=== PATIENT | male | born 1960 | race Caucasian/White ===

== ENCOUNTER 2020-05-02 02:32 | Outpatient (CLI) | payer OTHER, SELFPAY ==
[2020-05-02 22:42] LABS: SARS-CoV-2 RNA PCR Negative
== END 2020-05-02 02:33 | disposition home or self-care (01) ==
LOC: ANHCOVIDDT 02:32
PROVIDERS: PCP Internal Medicine; Visit Provider Internal Medicine Gastroenterology
DX: Z01.818 Encounter for other preprocedural examination (principal); Z20.828 Contact with and (suspected) exposure to other viral communicable diseases
CPT/HCPCS: 87635; C9803; U0003

== ENCOUNTER 2020-05-05 00:46 | Day surgery (SDC) | payer OTHER, SELFPAY ==
[2020-05-01 09:17] VITALS: BMI 37.6
[2020-05-05 10:21] VITALS: BP 170/107; PULSE 81; RESP 18; TEMP 36.5; O2SAT 93
[2020-05-05] MEDS: LACTATED RINGERS 1,000 ML 150 ML IV CONT (10:42)
--- NOTE | 2020-05-05 10:59 | WPDANESEPPF ---
Anes - Initial Pre Proc Eval Procedure: Operation Date: 05/05/20 12:15 Proposed Procedures p Screening Colonoscopy - Jim Man MD Date/Time: 05/05/20 10:59 Surgeon: Jim Man MD Pre Op Diagnosis: Neoplasm Screening Patient Data Age: 59 Gender: M Height: 5 ft 7 in Weight: 109 kg Last Vital Signs Temp 36.5 C 05/05/20 10:21 Pulse 81 05/05/20 10:21 Resp 18 05/05/20 10:21 BP 170/107 H 05/05/20 10:21 Pulse Ox 93 05/05/20 10:21 Allergies Allergy/AdvReac Type Severity Reaction Status Date / Time No Known Allergies Allergy Verified 03/30/20 14:31 Home Medications Medication Instructions Recorded Confirmed Type atenolol 50 mg PO DAILY 03/30/20 05/05/20 History hydrocodone-acetaminophen 1 tablet PO QID PRN 03/30/20 05/01/20 History pravastatin 10 mg PO DAILY 03/30/20 03/30/20 History celecoxib 100 mg PO BID 05/01/20 05/01/20 History cyclobenzaprine 10 mg PO BID PRN 05/01/20 05/01/20 History Patient hx anesthesia problems: none Family hx anesthesia problems: none PMFSH Past Medical History Medical History (Updated 05/05/20 @ 11:00 by Baljeet Duarte MD) History of hepatitis C HTN (hypertension) Hyperlipidemia Obesity IDALIA on CPAP Surgical History Surgical History (Updated 05/05/20 @ 11:00 by Baljeet Duarte MD) History of total hip arthroplasty Social History Social History Smoking status: Never smoker Smokeless tobacco user: chewing tobacco Alcohol intake: never Substance use: current Substance use type: marijuana Last use: 04/30/2020 Spiritual care concerns: No Anes - Eval Final PreProcedure Day of Procedure 05/05/20 10:59 Patient weight: obese Heart: regular rate and rhythm Lungs: clear to auscultation Airway: Mallampati scale class II Neurological: alert and oriented Last oral intake: >/= 8 hours ASA classification: III Emergent: no Anesthetic plan: proceed Anesthesia type and monitoring: general GIVS and standard monitoring Informed Consent: The patient's anesthetic plan and its attendant risks and benefits were discussed with the patient/family/POA. Questions were solicited and answers provided to the satisfaction of the patient/family/POA.
--- NOTE | 2020-05-05 11:41 | PM.HPGS ---
History of Present Illness History of Present Illness Consent: Risks, benefits, and alternatives have been discussed and questions answered. Patient agrees to proceed with procedure. Chief complaint: Neoplasm Screening Narrative: Nikita Perry Jr. is a 59 year old male here for first screening colonoscopy Review of Systems Constitutional: Constitutional: Denies headache(s) and Denies weakness Eyes: Eyes: Denies blurry vision ENT: Reports Normal hearing present, Denies headache(s) and Denies neck pain Cardiovascular: Cardiovascular: Denies chest pain and Denies dyspnea Respiratory: Respiratory: Denies dyspnea Gastrointestinal: Gastrointestinal: Reports no additional gastrointestinal complaints Genitourinary: Genitourinary: Denies dysuria Musculoskeletal: Musculoskeletal: Denies neck pain Integumentary/Breasts: Skin/Breast: Denies dry skin Neurologic: Reports Normal hearing present, Denies headache(s) and Denies weakness Psychiatric: Psychiatric: Denies anxiety Endocrine: Endocrine: Denies change in body appearance Hematologic/Lymphatic: Hematologic/Lymphatic: Denies easy bleeding Allergic/Immunologic: Allergic/Immunologic: Denies urticaria PMF Past Medical History Medical History (Updated 05/05/20 @ 11:41 by Jim Man MD) Colon cancer screening History of hepatitis C HTN (hypertension) Hyperlipidemia Obesity IDALIA on CPAP Surgical History Surgical History (Updated 05/05/20 @ 11:00 by Baljeet Duarte MD) History of total hip arthroplasty Social History Social History Smoking status: Never smoker Smokeless tobacco user: chewing tobacco Alcohol intake: never Substance use: current Substance use type: marijuana Last use: 04/30/2020 Spiritual care concerns: No Meds Home Medications and Allergies Home Medications Medication Instructions Recorded Confirmed Type atenolol 50 mg PO DAILY 03/30/20 05/05/20 History hydrocodone-acetaminophen 1 tablet PO QID PRN 03/30/20 05/01/20 History pravastatin 10 mg PO DAILY 03/30/20 03/30/20 History celecoxib 100 mg PO BID 05/01/20 05/01/20 History cyclobenzaprine 10 mg PO BID PRN 05/01/20 05/01/20 History Allergies Allergy/AdvReac Type Severity Reaction Status Date / Time No Known Allergies Allergy Verified 03/30/20 14:31 Vital Signs Vital Signs - 24 hr 05/05/20 10:21 Temperature 97.7 F Pulse Rate 81 Respiratory Rate 18 Blood Pressure 170/107 H Pulse Oximetry 93 Exam Const: General: comfortable and no acute distress HENMT: General nose exam: Normal nares present Eyes: General: appearance normal, both eyes and all related structures Neck: Neck: no JVD Resp: Auscultation: clear to auscultation bilaterally Cardio: Rate: regular rate Rhythm: regular rhythm GI: Inspection: non-distended GI Palp: Yes Soft to palpation Skin: General skin exam: normal color Neuro: General: gait normal Speech: normal speech Extrem: General: normal to inspection Psych: Mental Status: mental status grossly normal Assessment and Plan Assessment and plan (1) Colon cancer screening: Code(s): Z12.11 - Encounter for screening for malignant neoplasm of colon Status: Acute Assessment and Plan: will proceed with colonoscopy
[2020-05-05 12:02] VITALS: BP 116/77; PULSE 80; RESP 20; O2SAT 94
[2020-05-05 12:12] VITALS: BP 127/85; PULSE 80; RESP 20; O2SAT 94
[2020-05-05 12:22] VITALS: BP 122/83; PULSE 81; RESP 17; O2SAT 95
== END 2020-05-05 12:37 | disposition home or self-care (01) ==
PROVIDERS: PCP Internal Medicine; Visit Provider Internal Medicine Gastroenterology
PROC: 0DJD8ZZ Inspection of Lower Intestinal Tract, Via Natural or Artificial Opening Endoscopic (ICD-10-PCS; CPT 45378; principal; 2020-05-05 12:15)
DX: Z12.11 Encounter for screening for malignant neoplasm of colon (principal); K57.30 Diverticulosis of large intestine without perforation or abscess without bleeding; K64.8 Other hemorrhoids; Z86.19 Personal history of other infectious and parasitic diseases; I10 Essential (primary) hypertension; E78.5 Hyperlipidemia, unspecified; G47.33 Obstructive sleep apnea (adult) (pediatric); Z72.0 Tobacco use; F12.90 Cannabis use, unspecified, uncomplicated; E66.8 Other obesity; Z68.37 Body mass index [BMI] 37.0-37.9, adult
CPT/HCPCS: 45378; J2704; J7120

== ENCOUNTER 2021-01-24 08:53 | Emergency (ER) | payer OTHER, SELFPAY ==
--- NOTE | ~2021-01-24 | XR_ITS ---
EXAMINATION: XR femur LT min 2V EXAM DATE: 01/24/2021 09:54 INDICATION: Initial encounter following injury, with pain of the left femur. Left leg pain. TECHNIQUE: Left femur frontal and lateral projections of the proximal aspect, frontal and lateral pro jections of the lower aspect for review. Comparison is made to prior examination from 07/01/2018. FINDINGS: There is intact left hip arthroplasty. There are no acute fractures identified. No apprec iable knee joint effusion. The soft tissue is unremarkable. IMPRESSION: No acute left femur findings. Reviewed, dictated and finalized at location A.
--- NOTE | ~2021-01-24 | XR_ITS ---
EXAMINATION: XR pelvis 1-2V EXAM DATE: 01/24/2021 09:54 INDICATION: Fall, hip pain . Initial encounter. TECHNIQUE: Pelvis frontal projection(s) obtained and reviewed. Comparison is made to prior examinatio n from 12/29/2015. FINDINGS: There are no acute pelvic fractures or dislocations identified. There is no subcutaneous g as. Calcifications in the pelvis are believed to be phleboliths. There is been interval left hip re placement. There is moderate right hip primary osteoarthritis. IMPRESSION: No acute osseous findings. Reviewed, dictated and finalized at location A. IMPRESSION: No acute osseous findings.
[2021-01-24 08:58] VITALS: BP 164/106; PULSE 76; RESP 16; TEMP 36.4; O2SAT 95
--- NOTE | 2021-01-24 09:09 | ED.FALL ---
HPI - Fall General Chief Complaint: Fall Stated Complaint: FELL DOWN STAIRS Time Seen by Provider: 01/24/21 09:09 Source: patient Mode of arrival: wheelchair Limitations: no limitations History of Present Illness HPI Narrative: 60-year-old man who was status post left hip replacement comes in today complaining of left hip pain after he fell down some stairs within last hour to. Patient states he was caring his bicycle down and got tangled up with that and fell. He states that he has some back pain which is chronic but has biggest concern is his left hip as he has had some complications with that in the past. He denies neck pain, head injury, nausea, vomiting, loss consciousness. Patient states he has some mild numbness of his left foot. He is unable to bear weight on the left. complaint: fall Onset (ago): hour(s) (1) Fall from: down stairs (#) Fall witnessed: no Place fall occurred: home Loss of consciousness: none Symptoms prior to fall: none Context: tripped/slipped Location of injury: back and pelvis (left hip) Location of injury - extremities: Left: thigh Severity: severe Quality: sharp Associated symptoms (after fall): denies Related Data Home Medications Medication Instructions Recorded Confirmed atenolol 50 mg PO DAILY 03/30/20 01/24/21 pravastatin 10 mg PO DAILY 03/30/20 01/24/21 Allergies Allergy/AdvReac Type Severity Reaction Status Date / Time No Known Allergies Allergy Verified 03/30/20 14:31 Review of Systems Cardiovascular: Cardiovascular: Denies chest pain and Denies radiating jaw, neck or arm pain Respiratory: Respiratory: Denies cough and Denies dyspnea Gastrointestinal: Gastrointestinal: Denies abdominal pain, Denies nausea and Denies vomiting Musculoskeletal: Musculoskeletal: Reports back pain, Reports arthralgias and Denies joint swelling Integumentary/Breasts: Skin/Breast: Denies pruritus, Denies erythema and Denies rash Neurologic: Reports as per HPI, Denies vertigo, Denies dizziness, Denies syncope, Denies focal weakness and Reports numbness Hematologic/Lymphatic: Hematologic/Lymphatic: Denies easy bleeding and Denies easy bruising PMFSH Past Medical History Medical History Colon cancer screening History of hepatitis C HTN (hypertension) Hyperlipidemia Obesity IDALIA on CPAP Surgical History Surgical History History of total hip arthroplasty Social History Social History Smoking status: Never smoker Smokeless tobacco user: chewing tobacco Alcohol intake: never Substance use: current Substance use type: marijuana Last use: 04/30/2020 Spiritual care concerns: No Exam Const: General: alert Orientation/consciousness: patient oriented x3 Limitations: no limitations Other: Moderate acute distress. Resp: Effort & Inspection: normal respiratory effort and not labored Auscultation: clear to auscultation bilaterally, no rales, no rhonchi and no wheezes Cardio: Rate: regular rate Rhythm: regular rhythm Heart sounds: no murmurs Skin: General skin exam: normal color, no jaundice and no pallor Rashes: no rashes Neuro: General: patient oriented x3, moves all extremities, no focal motor deficits and CN's II-XI intact bilaterally Speech: normal speech Extrem: General: normal to inspection and no clubbing, cyanosis or edema Other: Pain with internal and external rotation left hip. Also tenderness palpation anterior left hip joint. Distal neurovascular exam is intact. No knee, thigh or lower leg tenderness. Psych: Appearance: grossly normal and well kempt Mental Status: mental status grossly normal Affect: Anxious affect present Attitude: cooperative Thought content: Yes Normal thought content present Course Vital Signs Vital signs: Vital Signs Temperature 36.4 C 01/24/21 08:58 Pu
[2021-01-24] MEDS: HYDROcodone/acetaminophen (*CRX) 5-325 MG TABLET 1 TAB PO (09:20)
[2021-01-24 10:40] VITALS: BP 136/84; PULSE 60; RESP 16; TEMP 36.4; O2SAT 94
== END 2021-01-24 10:44 | disposition home or self-care (01) ==
PROVIDERS: Emergency Provider Emergency Medicine; PCP Internal Medicine
DX: S76.012A Strain of muscle, fascia and tendon of left hip, initial encounter (principal); W10.9XXA Fall (on) (from) unspecified stairs and steps, initial encounter
CPT/HCPCS: 72170; 73552; 99283; 99284; A9270

== ENCOUNTER 2021-04-19 11:58 | Outpatient (CLI) | payer OTHER, SELFPAY ==
--- NOTE | ~2021-04-19 | XR_ITS ---
EXAMINATION: XR shoulder RT min 2V DATE: 04/19/2021 13:15 INDICATION: Right shoulder pain. TECHNIQUE: 4 views of right shoulder were obtained. COMPARISON: None. FINDINGS: Bone alignment is normal. No fracture. There is moderate osteoarthritis of glenohumeral boom nt and acromioclavicular joint. IMPRESSION: 1. Polyarticular osteoarthritis. Reviewed, dictated and finalized at location A. L CLERK
--- NOTE | ~2021-04-19 | XR_ITS ---
EXAMINATION: XR_CERV2-3V_CR DATE: 04/19/2021 13:14 INDICATION: Right shoulder pain. TECHNIQUE: 4 views of cervical spine were obtained. COMPARISON: None. FINDINGS: There is 4 degrees levocurvature of cervicothoracic spine. There is 2 mm retrolisthesis of C4 on C5. Vertebral body heights are normal. There is mildly decreased disc height at C3-C4, moderate ly decreased disc height at C4-C5 and C5-C6, and severely decreased disc height at C6-C7. There is mu ltilevel uncovertebral joint osteoarthritis, severe bilaterally at C4-C5 and on the right at C5-C6. T here is multilevel mild to moderate facet joint osteoarthritis. There is mild central canal stenosis C3-C4, C4-C5, C5-C6, and C6-C7. No prevertebral soft tissue swelling. IMPRESSION: 1. Severe cervical spondylosis. Reviewed, dictated and finalized at location A. [employer]
[2021-04-19 12:19] LABS: Eosinophils Absolute Auto 0.25 K/mm3 (0.02-0.50); Eosinophils Percent Auto 2.5 % (1.0-6.0); Hematocrit 50.3 % (40.0-54.0); Hemoglobin 17.4 g/dL (14.0-18.0); Immature Granulocyte Absolute 0.08 K/mm3 (0.00-0.00); Immature Granulocyte Percent A 0.8 % (0.0-0.0); Lymphocytes Percent Auto 31.7 % (18.0-42.0); Mean Corpuscular HGB Conc 34.6 g/dL (32.0-36.0); Mean Corpuscular Hemoglobin 28.9 pg (27.0-31.0); Mean Corpuscular Volume 83.6 fL (78.0-102.0); Mean Platelet Volume 10.4 fl (8.7-11.0); Monocytes Absolute Auto 1.06 K/mm3 (0.10-0.90); Monocytes Percent Auto 10.5 % (2.0-11.0); Neutrophils Absolute Auto 5.4 K/mm3 (1.7-7.2); Neutrophils Percent Auto 53.5 % (50.0-70.0); Platelet Count Result 326 K/mm3 (150-420); Red Blood Count 6.02 M/mm3 (4.70-6.10); Red Cell Distribution Width 12.9 % (11.6-14.4); White Blood Count 10.1 K/mm3 (4.8-10.8)
[2021-04-19 12:59] LABS: Add Urine Microscopic? YES; Appearance Urine Clear (Clear); Bilirubin Urine Negative (Negative); Blood Urine 1+ (Negative); Color Urine Light Yellow (Yellow); Glucose Urine UA Negative (Negative); Ketones Urine Negative (Negative); Leukocyte Esterase Ur Negative (Negative); Nitrate Urine Negative (Negative); Protein Urine Negative (Negative); Specific Grav Ur 1.025 (1.010-1.020); Urobilinogen Urine 0.2 mg/dL (0.2-1.0); pH Urine 5.5 (5.0-8.0)
[2021-04-19 13:05] LABS: RBC Urine 0-2 /hpf (0-2); WBC Urine None seen /hpf (0-3)
[2021-04-19 13:06] LABS: Bacteria Urine None seen /hpf; Mucus Urine Few /lpf
[2021-04-19 13:12] LABS: Alanine Aminotransferase 33 U/L (16-63); Albumin Level 3.9 g/dL (3.4-5.0); Alkaline Phosphatase 92 U/L (46-116); Anion Gap 12 mmol/L (8-16); Aspartate Amino Transferase 16 U/L (15-37); Bilirubin,Total 0.5 mg/dL (0.00-1.00); Blood Urea Nitrogen 16 mg/dL (7-18); Calcium 8.9 mg/dL (8.5-10.1); Carbon Dioxide 24 mmol/L (21-32); Chloride 106 mmol/L (98-108); Cholesterol 196 mg/dL (0-200); Estimated Glomerular Filt Rate > 60; Glucose 115 mg/dL (70-99); HDL Direct 47 mg/dL (40-60); LDL Cholesterol Calculated 101 mg/dL (<130); Osmolality Calculated 296 mOsm/kg (285-295); Potassium 4.4 mmol/L (3.5-5.1); Sodium 142 mmol/L (136-145); Thyroid Stimulating Hormone 0.98 uIU/mL (0.36-3.74); Total Protein 7.5 g/dL (6.4-8.2); Triglycerides 240 mg/dL (0-150)
== END 2021-04-19 11:59 | disposition home or self-care (01) ==
LOC: CHSLAB 12:00
PROVIDERS: PCP Internal Medicine; Visit Provider Internal Medicine
DX: Z00.00 Encounter for general adult medical examination without abnormal findings (principal); I10 Essential (primary) hypertension; E78.5 Hyperlipidemia, unspecified; M25.511 Pain in right shoulder; Z12.5 Encounter for screening for malignant neoplasm of prostate; M47.812 Spondylosis without myelopathy or radiculopathy, cervical region; M15.9 Polyosteoarthritis, unspecified
CPT/HCPCS: 36415; 72040; 73030; 80053; 80061; 81001; 84153; 84443; 85025; G0103

== ENCOUNTER 2021-05-16 10:28 | Emergency (ER) | payer OTHER, SELFPAY ==
--- NOTE | ~2021-05-16 | XR_ITS ---
EXAMINATION: XR ribs LT 2V EXAM DATE: 05/16/2021 12:07 INDICATION: Fall with side pain slipped in mud puddle. TECHNIQUE: Frontal projection of the upper left ribs, frontal projection of the lower left ribs, obli que projection of the left ribs, without chest x-ray(s) for interpretation. Comparison is made to reny or examination from 01/06/2013. FINDINGS: Acute mildly displaced right 8th rib fracture posterolaterally obscured by patient's pierci ng. Chronic appearing left 7th rib fracture. No evidence of left-sided pneumothorax. Heart is normal in size. IMPRESSION: Acute mildly displaced left 8th rib fracture posterolaterally. Reviewed, dictated and finalized at location A. E ICER
[2021-05-16 10:53] VITALS: BP 136/88; PULSE 70; RESP 16; TEMP 36.4; O2SAT 95
--- NOTE | 2021-05-16 11:46 | ED.FALL ---
HPI - Fall General Chief Complaint: Back Pain/Injury Stated Complaint: fell, possible broken rib Source: patient and RN notes reviewed Mode of arrival: ambulatory Limitations: no limitations History of Present Illness HPI Narrative: Patient was walking up small [place] when he slipped on the wet grass onto his left side. Says it hurts on his left ribs and the midback. Denies any LOC. Denies any difficulty breathing except when he takes a deep breath and then he can feel something catch possibly some crepitus. complaint: fall Onset (ago): hour(s) (2.5) Fall from: standing Fall witnessed: no Place fall occurred: other (slipery berm) Loss of consciousness: none Context: tripped/slipped Location of injury: back (left ribs) Related Data Home Medications Medication Instructions Recorded Confirmed atenolol 50 mg PO DAILY 03/30/20 05/16/21 pravastatin 10 mg PO DAILY 03/30/20 05/16/21 celecoxib 100 mg PO BID 05/16/21 05/16/21 Allergies Allergy/AdvReac Type Severity Reaction Status Date / Time butorphanol [From Stadol] Allergy Severe Anaphylaxis Verified 05/16/21 11:00 Review of Systems Review of Systems: All systems reviewed & are unremarkable except as noted in HPI and below PMFSH Past Medical History Medical History (Updated 05/16/21 @ 12:27 by Rafa Coffman MD) Colon cancer screening Coronary artery disease History of hepatitis C HTN (hypertension) Hyperlipidemia Obesity IDALIA on CPAP Surgical History Surgical History History of total hip arthroplasty Social History Social History Smoking status: Never smoker Smokeless tobacco user: chewing tobacco Alcohol intake: never Substance use: current Substance use type: marijuana Last use: 04/30/2020 Spiritual care concerns: No Exam Const: General: healthy appearing, no acute distress and alert Nutritional Appearance: well nourished and obese centrally obese Orientation/consciousness: patient oriented x3 HENMT: Head: normal to inspection Ears: external ears normal Eyes: Conjunctivae: conjunctivae normal Pupils: Equal, round and reactive pupils present EOM: EOMs intact bilaterally Neck: Neck: normal visual inspection Chest: Chest palpation & inspection: tenderness rib left mid-scapular line involving the 7th rib and involving the 8th rib Course Course Emergency Course: patient states that he feels improved after injection of Toradol 60 mg Vital Signs Vital signs: Vital Signs Temperature 36.4 C L 05/16/21 10:53 Pulse Rate 70 05/16/21 10:53 Respiratory Rate 16 05/16/21 10:53 Blood Pressure 136/88 05/16/21 10:53 Pulse Oximetry 95 05/16/21 10:53 Temperature 36.6 C 05/16/21 12:37 Pulse Rate 63 05/16/21 12:37 Respiratory Rate 16 05/16/21 12:37 Blood Pressure 114/88 05/16/21 12:37 Pulse Oximetry 96 05/16/21 12:37 Discharge Plan Discharge Clinical Impression: Fracture, rib Qualifiers: Encounter type: initial encounter Rib fracture type: single rib Fracture type: closed Laterality: left Qualified Code(s): S22.32XA - Fracture of one rib, left side, initial encounter for closed fracture Patient Disposition: Home, Self-Care Condition: Stable Instructions: Rib Fracture (ED) Prescriptions: New acetaminophen-codeine 300-15 mg tablet 1 tablet PO TID PRN (Reason: pain) Qty: 10 RF: 0 No Action hydrocodone-acetaminophen 5-325 mg tablet 1 tablet PO Q6H PRN (Reason: pain) Qty: 15 RF: 0 (DME) crutch Misc See Rx Instructions .ROUTE .MEDSUPPLY Qty: 2 RF: 0 celecoxib 100 mg capsule 100 mg PO BID RF: 0 pravastatin 10 mg tablet 10 mg PO DAILY RF: 0 atenolol 50 mg tablet 50 mg PO DAILY RF: 0 Follow-up/Referrals: Patrice Ledesma MD [Primary Care Provider] - Stand Alone Forms: Work/School Release IP Time of Disposition: 12:27
[2021-05-16] MEDS: KETOROLAC (*BKC) 60 MG/2 ML VIAL IM (11:54)
[2021-05-16 12:37] VITALS: BP 114/88; PULSE 63; RESP 16; TEMP 36.6; O2SAT 96
== END 2021-05-16 12:44 | disposition home or self-care (01) ==
PROVIDERS: Emergency Provider Emergency Medicine; PCP Internal Medicine
DX: S22.32XA Fracture of one rib, left side, initial encounter for closed fracture (principal); W01.0XXA Fall on same level from slipping, tripping and stumbling without subsequent striking against object, initial encounter
CPT/HCPCS: 71100; 96372; 99283; J1885

== ENCOUNTER 2021-11-26 21:21 | Emergency (ER) | payer BC, SELFPAY ==
--- NOTE | ~2021-11-26 | XR_ITS ---
EXAMINATION: XR chest 1V portable 11/26/2021 21:46 INDICATION: Chest pain with cough PROCEDURE: AP portable chest COMPARISON: 05/16/2021 FINDINGS: The lungs are clear. The cardiomediastinal silhouette is within normal limits. There are no pleural effusions. There is no pneumothorax suspected. There are chronic of seventh and eighth r ib fractures. IMPRESSION: 1: NO ACUTE CARDIOPULMONARY DISEASE. Reviewed, dictated and finalized at location A.
[2021-11-26 21:27] VITALS: BP 159/96; PULSE 76; PULSE 80; RESP 16; RESP 18; TEMP 36.6; O2SAT 96
--- NOTE | 2021-11-26 21:29 | ED.CHESTPAIN ---
HPI - Chest Pain General Chief Complaint: Arrhythmia/Palpitations Stated Complaint: heaviness in chest,irregular heart rate Time Seen by Provider: 11/26/21 21:29 Source: patient History of Present Illness HPI narrative: 61-year-old male with a history of obesity, hypertension, dyslipidemia, negative family history of coronary artery disease, hepatitis-C, IDALIA, with a cardiac catheterization last week presents to the ER with -- chest and epigastric discomfort. This started in the morning when he woke up from sleep and has been there continuously. Subsequently the patient was able to walk 4 miles. No radiation of the pain. -- Nausea without any vomiting. -- No shortness of breath. -- The patient noticed that his chest discomfort going sites with irregular heartbeats which he has been having frequently. patient has history of coronary artery disease with an LAD lesion. he has been having recurrent chest pain. He had Aj and 6 stress test July 08, 2021 which did not show any evidence of reversible ischemia. In view of his ongoing chest pain he had a cardiac catheterization on 11/22/2021. The patient had 50-60% mid LAD, 60-70% 1st diagonal, and a 60% mid circumflex lesion. The patient had IFR with results of greater than 0.96. The patient was cleared to return to normal activity except lifting weights. complaint: chest discomfort Onset (ago): hour(s) ( Started around 12 hours ago) Timing of current episode: episodic Prior episodes: Yes Onset: during rest Pain location: substernal and epigastric Pain radiation: none Severity: mild Quality: tightness Relieving factors: nothing Exacerbating factors: nothing Associated symptoms: nausea Treatment prior to arrival: none Risk Factors Coronary artery disease risk factors: hyperlipidemia and hypertension Related Data Home Medications Medication Instructions Recorded Confirmed atenolol 50 mg tablet 50 mg PO DAILY 03/30/20 11/26/21 pravastatin 10 mg tablet 10 mg PO DAILY 03/30/20 11/26/21 aspirin 81 mg capsule 81 mg PO DAILY 11/26/21 11/26/21 Allergies Allergy/AdvReac Type Severity Reaction Status Date / Time butorphanol [From Stadol] Allergy Severe Anaphylaxis Verified 11/26/21 21:34 Review of Systems Review of Systems: All systems reviewed & are unremarkable except as noted in HPI and below Constitutional: Constitutional: Reports as per HPI and Reports no additional constitutional complaints Eyes: Eyes: Reports as per HPI and Reports no additional eye complaints ENT: Reports system reviewed and no additional complaints, except as documented and Reports as per HPI Cardiovascular: Cardiovascular: Reports as per HPI and Reports no additional cardiovascular complaints Comments: He feels that his chest discomfort is related to irregular heartbeat Respiratory: Respiratory: Reports as per HPI and Reports no additional respiratory complaints Comments: uses CPAP machine at night. Gastrointestinal: Gastrointestinal: Reports as per HPI and Reports no additional gastrointestinal complaints Genitourinary: Genitourinary: Reports no additional male genitourinary complaints and Reports as per HPI Musculoskeletal: Musculoskeletal: Reports no additional musculoskeletal complaints and Reports as per HPI Integumentary/Breasts: Skin/Breast: Reports system reviewed and no additional complaints, except as docu and Reports as per HPI Neurologic: Reports system reviewed and no additional complaints, except as documented and Reports as per HPI Psychiatric: Psychiatric: Reports no additional psychiatric complaints and Reports as per HPI Endocrine: Endocrine: Reports no additional endocrine complaints and Reports as per HPI Hematologic/Lymphatic: Hematologic/Lymphatic: Reports no additional hematologic/lymphatic complaints and Reports as per HPI Allergic/Immunologic: Allergic/Immunologic: Reports no additional allergic/immunologic complaints and Reports as per HPI PM
--- NOTE | 2021-11-26 21:30 | ECG_ITS ---
Measurements Intervals [place] Rate: 78 P: 46 VA: 172 QRS: 3 QRSD: 98 T: 49 QT: 377 QTc: 431 Interpretive Statements SINUS RHYTHM VENTRICULAR PREMATURE COMPLEXES INCOMPLETE RIGHT BUNDLE BRANCH BLOCK BASELINE ARTIFACT- II, III, AVF BORDERLINE ECG Electronically Signed On 11-27-2021 6:00:43 CDT by Oral Ambrocio D.O.
[2021-11-26 21:45] VITALS: BP 121/77; PULSE 77; RESP 20; O2SAT 95
[2021-11-26 21:58] LABS: Basophils Absolute Auto 0.08 K/mm3 (0.00-0.10); Basophils Percent Auto 0.9 % (0.0-1.0); Eosinophils Absolute Auto 0.26 K/mm3 (0.02-0.50); Eosinophils Percent Auto 2.9 % (1.0-6.0); Hemoglobin 15.3 g/dL (14.0-18.0); Immature Granulocyte Absolute 0.06 K/mm3 (0.00-0.00); Immature Granulocyte Percent A 0.7 % (0.0-0.0); Lymphocytes Absolute Auto 3.78 K/mm3 (1.10-4.50); Lymphocytes Percent Auto 41.8 % (18.0-42.0); Mean Corpuscular Hemoglobin 29.3 pg (27.0-31.0); Mean Corpuscular Volume 86.2 fL (78.0-102.0); Mean Platelet Volume 10.3 fl (8.7-11.0); Monocytes Absolute Auto 0.93 K/mm3 (0.10-0.90); Monocytes Percent Auto 10.3 % (2.0-11.0); Neutrophils Absolute Auto 3.9 K/mm3 (1.7-7.2); Neutrophils Percent Auto 43.4 % (50.0-70.0); Platelet Count Result 261 K/mm3 (150-420); Red Blood Count 5.22 M/mm3 (4.70-6.10); Red Cell Distribution Width 12.8 % (11.6-14.4); White Blood Count 9.1 K/mm3 (4.8-10.8)
[2021-11-26 22:00] VITALS: BP 123/75; PULSE 75; RESP 20; O2SAT 94
[2021-11-26 22:21] LABS: Prothrombin Time 10.7 Seconds (9.50-12.10)
[2021-11-26 22:30] VITALS: BP 127/77; PULSE 81; RESP 17; O2SAT 95
[2021-11-26 22:54] LABS: Chloride 110 mmol/L (98-108); Potassium 3.6 mmol/L (3.5-5.1); Sodium 141 mmol/L (136-145)
[2021-11-26 23:00] VITALS: BP 116/71; PULSE 72; RESP 17; O2SAT 96
--- NOTE | 2021-11-26 23:06 | PC.NURSE ---
RN received a critical troponin level and notified ERP. ERP asked for medical records from [facility]. RN called [facility] and talked to medical records who states they will be faxing labs and reports from the cardiac catheter from .
[2021-11-26 23:14] LABS: Alanine Aminotransferase 29 U/L (16-63); Albumin Level 3.5 g/dL (3.4-5.0); Alkaline Phosphatase 94 U/L (46-116); Anion Gap 10 mmol/L (8-16); Aspartate Amino Transferase 20 U/L (15-37); Bilirubin,Total 0.3 mg/dL (0.00-1.00); Blood Urea Nitrogen 19 mg/dL (7-18); Calcium 8.4 mg/dL (8.5-10.1); Carbon Dioxide 21 mmol/L (21-32); Estimated Glomerular Filt Rate 57; Glucose 143 mg/dL (70-99); Lipase 90 U/L (73-393); NT Pro B Type Natriuretic Pept 184 pg/mL (0-125); Osmolality Calculated 296 mOsm/kg (285-295); Total Protein 6.7 g/dL (6.4-8.2)
[2021-11-26 23:16] LABS: Troponin I 369.2 ng/L (0.00-60.4)
[2021-11-27] VITALS (7 sets, daily range): BP systolic 118–141; BP diastolic 76–86; PULSE 66–75; RESP 16–20; TEMP 36.1; O2SAT 92–96
[2021-11-27 00:02] LABS: Partial Thromboplastin Time 28.5 SEC (23.90-30.70)
[2021-11-27] MEDS: HEPARIN SODIUM 5,000 UNITS/ML VIAL 4000 UNITS IV PUSH (00:45)
[2021-11-27] MEDS: HEPARIN SOD/D5W 100 UNITS/ML 25,000 UNITS/250 ML BAG 10 UNITS IV CONT (00:46)
[2021-11-27 02:52] LABS: Basophils Absolute Auto 0.07 K/mm3 (0.00-0.10); Basophils Percent Auto 0.8 % (0.0-1.0); Eosinophils Absolute Auto 0.24 K/mm3 (0.02-0.50); Eosinophils Percent Auto 2.7 % (1.0-6.0); Hematocrit 45.8 % (40.0-54.0); Hemoglobin 15.5 g/dL (14.0-18.0); Immature Granulocyte Absolute 0.07 K/mm3 (0.00-0.00); Immature Granulocyte Percent A 0.8 % (0.0-0.0); Lymphocytes Absolute Auto 3.49 K/mm3 (1.10-4.50); Lymphocytes Percent Auto 39.5 % (18.0-42.0); Mean Corpuscular HGB Conc 33.8 g/dL (32.0-36.0); Mean Corpuscular Hemoglobin 29.1 pg (27.0-31.0); Mean Corpuscular Volume 86.1 fL (78.0-102.0); Mean Platelet Volume 10.4 fl (8.7-11.0); Monocytes Percent Auto 10.2 % (2.0-11.0); Neutrophils Absolute Auto 4.1 K/mm3 (1.7-7.2); Platelet Count Result 258 K/mm3 (150-420); Red Blood Count 5.32 M/mm3 (4.70-6.10); Red Cell Distribution Width 12.9 % (11.6-14.4); White Blood Count 8.8 K/mm3 (4.8-10.8)
--- NOTE | 2021-11-27 03:48 | PC.NURSE ---
RN called [facility] [place] to update on pt status of new IV placement, not starting a nitro drip, and repeat troponin level.
== END 2021-11-27 05:05 | disposition short-term general hospital (02) ==
PROVIDERS: Emergency Provider Internal Medicine Critical Care Medicine; PCP Internal Medicine
DX: I21.4 Non-ST elevation (NSTEMI) myocardial infarction (principal); I25.10 Atherosclerotic heart disease of native coronary artery without angina pectoris; I10 Essential (primary) hypertension; E78.5 Hyperlipidemia, unspecified
CPT/HCPCS: 36415; 71045; 80053; 83690; 83880; 84484; 85025; 85610; 85730; 93005; 96365; 96366; 99285; J1644

== ENCOUNTER 2022-05-17 09:46 | Emergency (ER) | payer BC, SELFPAY ==
--- NOTE | ~2022-05-17 | XR_ITS ---
EXAMINATION: XR chest 1V portable INDICATION: Cough with chest pain TECHNIQUE: Portable AP chest at 1040 hours COMPARISON: 11/26/2021 FINDINGS: There are minimal airspace opacities of the right lung base. No pleural effusion or pneumot horax. The cardiomediastinal silhouette is normal. Healed left-sided rib fractures are noted. IMPRESSION: 1. Minimal airspace opacities of the right lung base, consistent with atelectasis versus pneumonia. Reviewed, dictated and finalized at location B. ERY HANGER IMPRESSION: 1. Minimal airspace opacities of the right lung base, consistent with atelectas is versus pneumonia.
[2022-05-17 09:48] VITALS: BP 123/77; PULSE 101; RESP 18; TEMP 37.6; O2SAT 95
--- NOTE | 2022-05-17 10:00 | ED.CHESTPAIN ---
HPI - Chest Pain General Chief Complaint: Chest Pain Stated Complaint: Chest pain Time Seen by Provider: 05/17/22 10:00 Source: patient Mode of arrival: ambulatory History of Present Illness HPI narrative: 61-year-old male with a history of Marijuana use, obesity, hypertension, dyslipidemia, hepatitis-C, IDALIA with a negative stress test in June and cardiac catheterization on 11/22/2021 which revealed a 50-60 % lad, 60-70% diagonal and 60% left circumflex with an IFR of greater than 95%. he presented to this ER in November of 2021 for chest pain and was noted to have positive troponin for which he was transferred to [facility]. He had a repeat cardiac catheterization and subsequently advised medical management with Imdur, metoprolol and statins. This morning the patient developed -- left chest pain while coughing. Pain last refuse seconds with spontaneous resolution. No nausea/ vomiting. No shortness of breath or lightheadedness. -- Fever since 1:00 a.m. this morning. MD complaint: chest pain Pertinent past history: coronary artery disease Onset (ago): minute(s) ( Started 45 minutes ago.) Timing of current episode: episodic and now resolved Prior episodes: Yes Onset: during rest Pain location: left chest Pain radiation: none Severity: moderate Quality: aching Exacerbating factors: nothing Treatment prior to arrival: none Risk Factors Coronary artery disease risk factors: smoking history, hyperlipidemia and hypertension Thoracic aortic dissection risk factors: longstanding hypertension Related Data Home Medications Medication Instructions Recorded Confirmed aspirin 81 mg capsule 81 mg PO DAILY 11/26/21 05/17/22 atorvastatin 40 mg tablet 40 mg PO DAILY 05/17/22 05/17/22 isosorbide mononitrate 30 mg 30 mg PO DAILY 05/17/22 05/17/22 tablet,extended release 24 hr metoprolol succinate 25 mg 25 mg PO DAILY 05/17/22 05/17/22 tablet,extended release 24 hr Allergies Allergy/AdvReac Type Severity Reaction Status Date / Time butorphanol [From Stadol] Allergy Severe Anaphylaxis Verified 11/26/21 21:34 Review of Systems Review of Systems: All systems reviewed & are unremarkable except as noted in HPI and below Constitutional: Constitutional: Reports as per HPI and Reports no additional constitutional complaints Eyes: Eyes: Reports as per HPI and Reports no additional eye complaints ENT: Reports system reviewed and no additional complaints, except as documented and Reports as per HPI Cardiovascular: Cardiovascular: Reports as per HPI, Reports no additional cardiovascular complaints and Reports chest pain Respiratory: Respiratory: Reports as per HPI, Reports no additional respiratory complaints and Reports cough Gastrointestinal: Gastrointestinal: Reports as per HPI and Reports no additional gastrointestinal complaints Genitourinary: Genitourinary: Reports no additional male genitourinary complaints and Reports as per HPI Musculoskeletal: Musculoskeletal: Reports no additional musculoskeletal complaints and Reports as per HPI Integumentary/Breasts: Skin/Breast: Reports system reviewed and no additional complaints, except as docu and Reports as per HPI Neurologic: Reports system reviewed and no additional complaints, except as documented and Reports as per HPI Psychiatric: Psychiatric: Reports no additional psychiatric complaints and Reports as per HPI Endocrine: Endocrine: Reports no additional endocrine complaints and Reports as per HPI Hematologic/Lymphatic: Hematologic/Lymphatic: Reports no additional hematologic/lymphatic complaints and Reports as per HPI Allergic/Immunologic: Allergic/Immunologic: Reports no additional allergic/immunologic complaints and Reports as per HPI [facility] Past Medical History Medical History Colon cancer screening Coronary artery disease History of hepatitis C HTN (hypertension) Hyperlipidemia Obesity IDALIA on CPAP
--- NOTE | 2022-05-17 10:19 | ECG_ITS ---
Measurements Intervals [place] Rate: 100 P: 51 [place]: 156 QRS: 18 QRSD: 93 T: 34 QT: 334 QTc: 432 Interpretive Statements SINUS TACHYCARDIA INCOMPLETE RIGHT BUNDLE BRANCH BLOCK [90+ ms QRS DURATION, TERMINAL R IN V1/V2, 40+ ms S IN I/aVL/V4/V5/V6] ABNORMAL RHYTHM ECG COMPARED TO ECG 11/26/2021 21:46:00 HEART RATE INCREASED NO OTHER CHANGE Electronically Signed On 05-17-2022 14:39:23 TRACK EQUIPMENT OPERATOR by Jeff Crocker M.D.
[2022-05-17 10:35] LABS: Basophils Absolute Auto 0.07 K/mm3 (0.00-0.10); Basophils Percent Auto 0.8 % (0.0-1.0); Eosinophils Absolute Auto 0.04 K/mm3 (0.02-0.50); Eosinophils Percent Auto 0.5 % (1.0-6.0); Hematocrit 44.3 % (40.0-54.0); Immature Granulocyte Absolute 0.04 K/mm3 (0.00-0.00); Immature Granulocyte Percent A 0.5 % (0.0-0.0); Lymphocytes Absolute Auto 1.11 K/mm3 (1.10-4.50); Lymphocytes Percent Auto 13.1 % (18.0-42.0); Mean Corpuscular HGB Conc 33.9 g/dL (32.0-36.0); Mean Corpuscular Hemoglobin 29.5 pg (27.0-31.0); Mean Corpuscular Volume 87.2 fL (78.0-102.0); Mean Platelet Volume 10.1 fl (8.7-11.0); Monocytes Absolute Auto 1.19 K/mm3 (0.10-0.90); Neutrophils Percent Auto 71.1 % (50.0-70.0); Platelet Count Result 232 K/mm3 (150-420); Red Blood Count 5.08 M/mm3 (4.70-6.10); Red Cell Distribution Width 13.2 % (11.6-14.4); White Blood Count 8.5 K/mm3 (4.8-10.8)
[2022-05-17 10:48] LABS: Alanine Aminotransferase 27 U/L (16-63); Albumin Level 3.7 g/dL (3.4-5.0); Alkaline Phosphatase 92 U/L (46-116); Anion Gap 9 mmol/L (8-16); Aspartate Amino Transferase 20 U/L (15-37); Bilirubin,Total 0.6 mg/dL (0.00-1.00); Blood Urea Nitrogen 18 mg/dL (7-18); Calcium 7.9 mg/dL (8.5-10.1); Carbon Dioxide 23 mmol/L (21-32); Chloride 105 mmol/L (98-108); Estimated CRCL calculation 66 ml/min; Estimated Glomerular Filt Rate 59; Glucose 106 mg/dL (70-99); Osmolality Calculated 285 mOsm/kg (285-295); Sodium 137 mmol/L (136-145); Total Protein 6.9 g/dL (6.4-8.2); Troponin I 6.4 ng/L (0.00-60.4)
[2022-05-17 10:51] LABS: Influenza Control Valid (Valid)
[2022-05-17 11:12] VITALS: BP 125/82; PULSE 93; RESP 18; TEMP 37.6; O2SAT 97
== END 2022-05-17 11:20 | disposition home or self-care (01) ==
PROVIDERS: Emergency Provider Internal Medicine Critical Care Medicine; PCP Internal Medicine
DX: J10.1 Influenza due to other identified influenza virus with other respiratory manifestations (principal); R07.9 Chest pain, unspecified; I10 Essential (primary) hypertension; E78.5 Hyperlipidemia, unspecified; I25.10 Atherosclerotic heart disease of native coronary artery without angina pectoris; G47.33 Obstructive sleep apnea (adult) (pediatric); E66.9 Obesity, unspecified; Z68.39 Body mass index [BMI] 39.0-39.9, adult; Z86.19 Personal history of other infectious and parasitic diseases; Z79.82 Long term (current) use of aspirin
CPT/HCPCS: 36415; 71045; 80053; 84484; 85025; 87804; 93005; 99284

== ENCOUNTER 2023-03-23 21:02 | Emergency (ER) | payer BC, SELFPAY ==
[2023-03-23] VITALS (12 sets, daily range): BP systolic 135–156; BP diastolic 82–92; PULSE 87–99; RESP 12–21; TEMP 37; O2SAT 94–97
--- NOTE | ~2023-03-23 | XR_ITS ---
EXAMINATION: XR chest 2V DATE: 03/23/2023 21:22 INDICATION: Is pain and chest heaviness TECHNIQUE: PA and lateral views of the chest were obtained. COMPARISON: Chest radiograph dated 05/17/2022 FINDINGS: The lungs are clear with no focal airspace opacities, pulmonary edema, pleural effusion or pneumothor ax. The cardiomediastinal silhouette is normal. Old bilateral rib fractures. Mild to moderate thoraco lumbar spondylosis with chronic T12 compression fracture. IMPRESSION: 1. No acute cardiopulmonary disease. Reviewed, dictated and finalized at location A. NEERING AIDE
--- NOTE | 2023-03-23 21:04 | ECG_ITS ---
Measurements Intervals [place] Rate: 100 P: 61 [place]: 167 QRS: 31 QRSD: 105 T: 55 QT: 390 QTc: 503 Interpretive Statements SINUS TACHYCARDIA VENTRICULAR PREMATURE COMPLEXES AND FREQUENT ATRIAL PREMATURE COMPLEXES LOW QRS VOLTAGE IN PRECORDIAL LEADS INCOMPLETE RIGHT BUNDLE BRANCH BLOCK BASELINE ARTIFACT- II, III, AVF, V1-V6 ABNORMAL ECG COMPARED TO ECG 05/17/2022 09:58:25 ATRIAL AND VENTRICULAR ECTOPICS NOW PRESENT Electronically Signed On 03-24-2023 7:02:30 NIGHT FILLER by Oral Ambrocio D.O.
[2023-03-23 21:31] LABS: Basophils Absolute Auto 0.07 K/mm3 (0.00-0.10); Basophils Percent Auto 0.8 % (0.0-1.0); Eosinophils Absolute Auto 0.21 K/mm3 (0.02-0.50); Eosinophils Percent Auto 2.5 % (1.0-6.0); Hematocrit 46.2 % (40.0-54.0); Hemoglobin 15.8 g/dL (14.0-18.0); Immature Granulocyte Absolute 0.04 K/mm3 (0.00-0.00); Immature Granulocyte Percent A 0.5 % (0.0-0.0); Lymphocytes Absolute Auto 3.23 K/mm3 (1.10-4.50); Lymphocytes Percent Auto 38.4 % (18.0-42.0); Mean Corpuscular HGB Conc 34.2 g/dL (32.0-36.0); Mean Corpuscular Hemoglobin 29.9 pg (27.0-31.0); Mean Corpuscular Volume 87.3 fL (78.0-102.0); Mean Platelet Volume 10.1 fl (8.7-11.0); Monocytes Absolute Auto 0.98 K/mm3 (0.10-0.90); Monocytes Percent Auto 11.6 % (2.0-11.0); Neutrophils Absolute Auto 3.9 K/mm3 (1.7-7.2); Neutrophils Percent Auto 46.2 % (50.0-70.0); Platelet Count Result 288 K/mm3 (150-420); Red Blood Count 5.29 M/mm3 (4.70-6.10); Red Cell Distribution Width 12.6 % (11.6-14.4); White Blood Count 8.4 K/mm3 (4.8-10.8)
[2023-03-23 21:43] LABS: D Dimer 0.49 mg/L (0.19-0.50); Prothrombin Time 10.8 Seconds (9.50-12.10)
[2023-03-23 21:46] LABS: Alanine Aminotransferase 24 U/L (16-63); Albumin Level 3.4 g/dL (3.4-5.0); Alkaline Phosphatase 117 U/L (46-116); Anion Gap 11 mmol/L (8-16); Aspartate Amino Transferase < 10 U/L (15-37); Bilirubin,Total 0.3 mg/dL (0.00-1.00); Blood Urea Nitrogen 21 mg/dL (7-18); Calcium 8.5 mg/dL (8.5-10.1); Carbon Dioxide 25 mmol/L (21-32); Chloride 105 mmol/L (98-108); Estimated CRCL calculation 77 ml/min; Estimated Glomerular Filt Rate > 60; Glucose 117 mg/dL (70-99); Lipase 31 U/L (16-77); Magnesium 1.9 mg/dL (1.8-2.4); Osmolality Calculated 296 mOsm/kg (285-295); Potassium 3.7 mmol/L (3.5-5.1); Sodium 141 mmol/L (136-145); Total Protein 6.7 g/dL (6.4-8.2); Troponin I 6.5 ng/L (0.00-60.4)
--- NOTE | 2023-03-23 21:54 | ED.ARRPALP ---
HPI - Arrhythmia/Palpitations General Chief Complaint: Arrhythmia/Palpitations Stated Complaint: heart palpitaion, chest heavy Time Seen by Provider: 03/23/23 21:04 Source: patient Mode of arrival: ambulatory Limitations: no limitations History of Present Illness HPI narrative: patient is a 62-year-old male with palpitations and chest pain for the past 2 days. Patient has had prior similar episodes and they have managed his medications through cardiology in the past with good results. One week ago the pharmacy made a mistake with his medications and he was off of medicine for 3 days and now back on medicine again for 1 week. Patient has microvascular disease of the heart after a heart catheterization done 1 and half years ago. MD complaint: skipped beats and palpitations Onset (ago): day(s) (2) Duration: intermittent Severity: similar to previous episodes Context: occurred during rest and occurred during exertion Associated symptoms: chest pain Related Data Home Medications Medication Instructions Recorded Confirmed aspirin 81 mg capsule 81 mg PO DAILY 11/26/21 05/17/22 atorvastatin 40 mg tablet 40 mg PO DAILY 05/17/22 05/17/22 isosorbide mononitrate 30 mg 30 mg PO DAILY 05/17/22 05/17/22 tablet,extended release 24 hr metoprolol succinate 25 mg 25 mg PO DAILY 05/17/22 05/17/22 tablet,extended release 24 hr Allergies Allergy/AdvReac Type Severity Reaction Status Date / Time butorphanol [From Stadol] Allergy Severe Anaphylaxis Verified 11/26/21 21:34 Review of Systems Review of Systems: All systems reviewed & are unremarkable except as noted in HPI and below Constitutional: Constitutional: Reports no additional constitutional complaints Eyes: Eyes: Reports no additional eye complaints ENT: Reports system reviewed and no additional complaints, except as documented Cardiovascular: Cardiovascular: Reports no additional cardiovascular complaints Respiratory: Respiratory: Reports no additional respiratory complaints Gastrointestinal: Gastrointestinal: Reports no additional gastrointestinal complaints Genitourinary: Genitourinary: Reports no additional male genitourinary complaints Musculoskeletal: Musculoskeletal: Reports no additional musculoskeletal complaints Integumentary/Breasts: Skin/Breast: Reports system reviewed and no additional complaints, except as docu Neurologic: Reports system reviewed and no additional complaints, except as documented Psychiatric: Psychiatric: Reports no additional psychiatric complaints Endocrine: Endocrine: Reports no additional endocrine complaints Hematologic/Lymphatic: Hematologic/Lymphatic: Reports no additional hematologic/lymphatic complaints Allergic/Immunologic: Allergic/Immunologic: Reports no additional allergic/immunologic complaints PMFSH Past Medical History Medical History Colon cancer screening Coronary artery disease History of hepatitis C HTN (hypertension) Hyperlipidemia Obesity IDALIA on CPAP Surgical History Surgical History History of total hip arthroplasty Social History Social History Smoking status: Never smoker Smokeless tobacco user: chewing tobacco Alcohol intake: never Substance use: current Substance use type: marijuana Last use: 04/30/2020 Spiritual care concerns: No Exam Const: General: healthy appearing Nutritional Appearance: well nourished Orientation/consciousness: patient oriented x3 HENMT: Head: normal to inspection Ears: external ears normal Face/Nose/Sinus: Normal external nose present Eyes: Conjunctivae: conjunctivae normal Pupils: Equal, round and reactive pupils present EOM: EOMs intact bilaterally Neck: Neck: normal visual inspection Chest: Chest palpation & inspection: normal inspection of the chest Resp: Effort & Inspec
== END 2023-03-23 22:44 | disposition left against medical advice (07) ==
PROVIDERS: Emergency Provider Emergency Medicine; PCP Internal Medicine
DX: I49.3 Ventricular premature depolarization (principal); I49.1 Atrial premature depolarization; R00.2 Palpitations; R07.89 Other chest pain; I25.10 Atherosclerotic heart disease of native coronary artery without angina pectoris; I10 Essential (primary) hypertension; E78.5 Hyperlipidemia, unspecified
CPT/HCPCS: 36415; 71046; 80053; 83690; 83735; 84484; 85025; 85380; 85610; 85730; 93005; 99284

== ENCOUNTER 2024-08-03 01:10 | Emergency (ER) | payer BC, SELFPAY ==
[2024-08-03] VITALS (8 sets, daily range): BP systolic 131–164; BP diastolic 82–100; PULSE 66–78; RESP 12–18; TEMP 35.8–36.5; O2SAT 91–98
--- NOTE | ~2024-08-03 | XR_ITS ---
Portable chest x-ray Comparison: 03/23/2023 Clinical History: Shortness of breath Findings: Lungs are clear, without focal consolidation or pleural effusion. Cardiomediastinal silho uette is stable. Bones and soft tissues are unremarkable. Impression: Clear lungs. Reviewed, dictated and finalized at location . Impression: Clear lungs.
--- NOTE | 2024-08-03 01:15 | ED_ITS ---
HPI - General Adult General Chief complaint: Shortness of Breath/Dyspnea Stated complaint: sob Time Seen by Provider: 08/03/24 01:15 Source: patient Mode of arrival: ambulatory Limitations: no limitations History of Present Illness HPI narrative: 63 YEARS OLD WHITE MALE DROVE HIMSELF TO THE EMERGENCY ROOM COMPLAINING OF SHORTNESS OF BREATH IN THE LAST 2 DAYS PATIENT IS NOT CLEAR IF THE SHORTNESS OF BREATH GET WORSE WITH ACTIVITY OR NOT, HE GAVE ME VAGUE ANSWERS. PATIENT REPORT COULD NOT FINISH THE GYM WORKUP TODAY BECAUSE FELT WEIRD AND TIRED. PATIENT GOT UP TO GO TO THE BATHROOM AND FELT CONFUSED FOR FEW SECONDS. CURRENTLY NO CONFUSION STILL HAVING SHORTNESS OF BREATH. THIS SHORTNESS OF BREATH IS INTERMITTENT, UNKNOWN AGGRAVATING FACTORS OR RELIEVING FACTORS. UNKNOWN HOW LONG IT LAST WHEN HE HAVE IT. PATIENT IS HYPERVENTILATING DURING EXAMINATION. HE DENIES ANY FEVER, CHILLS, NAUSEA, VOMITING, CHEST PAIN. HE REPORTS SOME RIGHT UPPER BACK PAIN NOTICED FEW HOURS AGO, IS NOT THERE ANYMORE. HISTORY OF HYPERTENSION TENSION PREDIABETIC HYPERLIPIDEMIA OBSTRUCTIVE SLEEP APNEA BABY ASPIRIN ONCE A DAY, PATIENT REPORT HAVING SIMILAR SYMPTOMS 2 YEARS AGO, WENT TO [facility] AND WAS TOLD THAT HE HAVE A CARDIAC EVENT. PATIENT IS TELLING ME THAT HE HAD 75% CORONARY STENOSIS AND WAS TOLD THERE WAS NOTHING CAN BE DONE FOR IT AT THAT TIME. Related Data Home Medications ?Medication ?Instructions ?Recorded ?Confirmed ?Last Taken ?Type aspirin 81 mg capsule 81 mg PO DAILY 11/26/21 05/17/22 Unknown History atorvastatin 40 mg tablet 40 mg PO DAILY 05/17/22 05/17/22 Unknown History isosorbide mononitrate 30 mg 30 mg PO DAILY 05/17/22 05/17/22 Unknown History tablet,extended release 24 hr metoprolol succinate 50 mg mg PO 08/03/24 Unknown History tablet,extended release 24 hr oxycodone-acetaminophen 7.5 mg-325 tablet 08/03/24 Unknown History mg tablet tizanidine 2 mg tablet mg 08/03/24 Unknown History Allergies Allergy/AdvReac Type Severity Reaction Status Date / Time butorphanol (From Stadol) Allergy Severe Anaphylaxis Verified 11/26/21 21:34 Review of Systems 2 Review of Systems: All systems reviewed & are unremarkable except as noted in HPI and below PMFSH Past Medical History Medical History Coronary artery disease Colon cancer screening History of hepatitis C Hyperlipidemia HTN (hypertension) Obesity IDALIA on CPAP Surgical History Surgical History History of total hip arthroplasty Social History Social History Smoking status: Never smoker Smokeless tobacco user: chewing tobacco Alcohol intake: never Substance use: current Substance use type: marijuana Last use: 04/30/2020 Spiritual care concerns: No Exam 2 Narrative: GENERAL APPEARANCE: WELL-DEVELOPED, WELL-NOURISHED , HYPERVENTILATING, RESTLESS SKIN: NORMAL COLOR HEAD: NORMOCEPHALIC, NONTRAUMATIC EYES: CLEAR CONJUNCTIVA ENT: OROPHARYNX NORMAL, EARS NORMAL, NOSE NORMAL NECK: SUPPLE, NONTENDER CHEST AND RESPIRATORY: AIRWAY PATENT, NO RESPIRATORY DISTRESS, NO ACCESSORY MUSCLE USE HEART: REGULAR RATE/RHYTHM ABDOMEN: SOFT, NONTENDER, NO ORGANOMEGALY, QUIET BOWEL SOUNDS VASCULAR: NORMAL PERIPHERAL PULSES, NORMAL CAPILLARY REFILL. MUSCULOSKELETAL: NORMAL RANGE OF MOTION, NONTENDER BACK NEUROLOGIC: ALERT AND ORIENTED ?3, HEALTH CARE SANITARY TECHNICIAN IS NORMAL TESTED, NO GROSS MOTOR DEFICIT Course Consultations Consultation #1: DR LOVETT, HOSPITALIST ON-CALL Date: 08/03/24 Time: 03:09 Vital Signs Vital signs: Vital Signs Pulse Rate 66 08/03/24 01:16 Pulse Oximetry 97 08/03/24 01:16 Oxygen Delivery Room Air 08/03/24 01:16 Temperature 35.8 C L 08/03/24 01:24 Pulse Rate 76 08/03/24 02:46 Respiratory Rate 12 08/03/24 02:46 Blood Pressure 131/82 08/03/24 02:46 Pulse Oximetry 95 08/03/24 02:46 Oxygen Delivery Room Air 08/03/24 01:48 Medical Decision Making [facility] Narrative Medical decision making narrative: PATIENT CAME WITH SHORTNESS OF BREATH FOR THE LAST 2 DAYS VITAL SIGNS SHOWING BLOOD PRESSURE 164/100 OTHERWISE WITHIN NORMAL LIMIT PHYSICAL EXAMINATION SHOWING A RESTLESS HYPERVENTILATING PATIENT OTHERWISE INSIGNIFICANT DIFFERENTIAL DIAGNOSIS ANXIETY LIKE SYMPTOMS, CORONARY ARTERY DISEASE, CONGESTIVE HEART FAILURE, PLEURAL EFFUSION, LESS LIKELY PNEUMONIA. BLOOD WORKUP TODAY INCLUDES CBC, CMP, TROPONIN, BNP SHOWED BUN 23, CREATININE 1.45 OTHERWISE WITHIN NORMAL LIMIT CHEST X-RAY SHOWED NO ACUTE CARDIOPULMONARY DISEASE NO ACUTE CARDIOPULMONARY DISEASE EKG ON ARRIVAL SHOWED NORMAL SINUS RHYTHM AT 69 BEATS PER MINUTE OTHERWISE WITHIN NORMAL LIMIT SPLIT 20 PANEL NEGATIVE FOR COVID, FLU AND RSV DIAGNOSIS DYSPNEA COULD BE SECONDARY TO CORONARY ARTERY DISEASE, TASHA Differential Diagnosis Differential Diagnosis: ABOVE Vital Signs Vital Signs: Vital Signs Pulse Rate 66 08/03/24 01:16 Pulse Oximetry 97 08/03/24 01:16 Oxygen Delivery Room Air 08/03/24 01:16 Temperature 35.8 C L 08/03/24 01:24 Pulse Rate 76 08/03/24 02:46 Respiratory Rate 12 08/03/24 02:46 Blood Pressure 131/82 08/03/24 02:46 Pulse Oximetry 95 08/03/24 02:46 Oxygen Delivery Room Air 08/03/24 01:48 Lab Data 08/03/24 01:33 08/03/24 01:33 Labs: Lab Results 08/03/24 08/03/24 Range/Units 01:33 01:53 WBC 10.1 (4.8-10.8) K/mm3 RBC 5.76 (4.70-6.10) M/mm3 Hgb 16.4 (14.0-18.0) g/dL Hct 49.9 (40.0-54.0) % MCV 86.6 (78.0-102.0) fL MCH 28.5 (27.0-31.0) pg MCHC 32.9 (32-36) g/dL RDW 12.8 (11.6-14.4) % Plt Count 280 (150-420) K/mm3 MPV 10.1 (8.7-11.0) fl Immature Gran % (Auto) 0.6 H (0.0-0.0) % Neut % (Auto) 43.2 L (50.0-70.0) % Lymph % (Auto) 42.1 H (18.0-42.0) % Sherman % (Auto) 10.6 (2.0-11.0) % Eos % (Auto) 2.5 (1.0-6.0) % Baso % (Auto) 1.0 (0.0-1.0) % Lymph # (Auto) 4.26 (1.10-4.50) K/mm3 Sherman # (Auto) 1.07 H (0.10-0.90) K/mm3 Eos # (Auto) 0.25 (0.02-0.50) K/mm3 Baso # (Auto) 0.10 (0.00-0.10) K/mm3 Abs Immat Gran (auto) 0.06 H (0.00-0.00) K/mm3 Absolute Neuts (auto) 4.39 (1.70-7.20) K/mm3 Absolute Nucleated RBC 0.00 (0.00-0.00) K/mm3 Nucleated RBC % 0.0 (0-0.0) % PT 10.7 (9.50-12.1) Seconds INR 1.0 APTT 28.0 (23.9-30.70) Sec Sodium 141 (136-145) mmol/L Potassium 3.8 (3.5-5.1) mmol/L Chloride 106 (98-108) mmol/L Carbon Dioxide 27 (21-32) mmol/L Anion Gap 8 (4-12) mmol/L BUN 23 H (7-18) mg/dL Creatinine 1.45 H (0.70-1.30) mg/dL Estim Creat Clear Calc 56 ml/min Estimated GFR 49 L (59 - ) Glucose 99 (70-99) mg/dL Calculated Osmolality 295 (285-295) mOsm/kg Calcium 8.6 (8.5-10.1) mg/dL Magnesium 1.9 (1.8-2.4) mg/dL Total Bilirubin 0.7 (0.00-1.00) mg/dL AST 19 (15-37) U/L ALT 37 (16-63) U/L Alkaline Phosphatase 101 (46-116) U/L Troponin I < 4.0 (0.00-60.4) ng/L NT-Pro-B Natriuret Pep 16 (0-125) pg/mL Total Protein 7.5 (6.4-8.2) g/dL Albumin 3.9 (3.4-5.0) g/dL Influenza A (RT-PCR) Negative (Negative) Influenza B (RT-PCR) Negative (Negative) RSV (RT-PCR) Negative (Negative) SARS-CoV-2 RNA (RT-PCR) Negative (Negative) ABG Data ABG results: 08/03/24 01:53 Puncture Site Right radial ABG pH 7.42 ABG pCO2 31.8 L ABG pO2 71.8 L ABG HCO3 20.4 L ABG O2 Saturation 94.4 L ABG Base Excess -2.8 L Oxyhemoglobin 93.7 L O2 Delivery Device Room air O2 Liters/Min Not Reportable ECG Data EKG #1: Attestation: I personally reviewed and interpreted this ECG as follows: ECG completion date: 08/03/24 Interpretation: NORMAL SINUS RHYTHM AT 69 BEATS PER MINUTE, NORMAL EKG Critical Care Time Critical Care Time Critical Care Time: No Discharge Plan Discharge Clinical Impression: Acute dyspnea, TASHA (acute kidney injury) Patient Disposition: Acute Care Hospital Condition: Stable Additional Instructions: TRANSFERRED TO [facility] Patient Language: Palestinian Prescriptions: No Action aspirin 81 mg Capsule 81 mg PO DAILY tizanidine 2 mg tablet metoprolol succinate 50 mg tablet extended release 24 hr PO oxycodone-acetaminophen 7.5-325 mg tablet atorvastatin 40 mg tablet 40 mg PO DAILY isosorbide mononitrate 30 mg tablet extended release 24 hr 30 mg PO DAILY Follow-up/Referrals: UNKNOWN,DOCTOR [Primary Care Provider] - Quality HEART score for chest pain patients History: moderately suspicious ECG: normal Age: > 45 and < 65 years Risk factors: > or = to 3 risk factors of atherosclerotic disease Troponin: < or = to 1x normal limit Heart score: 4
--- OUTSIDE RECORDS SUMMARY | 2024-08-03 01:16 | XMS_ITS ---
Author Organization Unknown Address [address] [place] [address] [phone] Phone Care Team Providers Care Personnel Recruiter Name Role Phone CROWLEY MADELAINE Attending Unavailable SHANNA KWASI Primary Unavailable Immunization Immunization Date Status Additional Notes Code Code System pneumococcal polysaccharide PPV23 09/24/2016 Completed 33 CVX Hep A, adult 06/02/2014 Completed 52 CVX Hep A-Hep B 01/12/2010 Completed 104 CVX Tdap 11/05/2011 Completed 115 CVX Tdap 08/23/2017 Completed 115 CVX Pneumococcal conjugate PCV 13 06/02/2014 Completed 133 CVX Influenza, split virus, trivalent, PF 03/29/2014 Completed 140 CVX Influenza, split virus, trivalent, preservative 06/06/2011 Completed 141 CVX Influenza, split virus, trivalent, preservative 04/10/2012 Completed 141 CVX Influenza, split virus, quadrivalent, PF 07/08/2017 Completed 150 CVX Influenza, split virus, quadrivalent, PF 03/01/2016 Completed 150 CVX Social History Type Status Start Date End Date Code Code Syst em Smoking History Never smoker (Never Smoked) [id number] SNOMED CT Sex Male Assessment You had the following problems:UNSPECIFIED VIRAL HEPATITIS C WITHOUT HEPATIC COMA Hospital Discharge Instructions Should you have any questions prior to discharge, please contact a member of your healthcare team. If you have left the hospital and have any questions, please contact your primary care physician. Reason For Referral No Data Found Problems Problem Start Date Resolved Date Status Code Code System UNSPECIFIED VIRAL HEPATITIS C WITHOUT HEPATIC COMA active [id number] SNOMED- CT Plan of Treatment MRI Lumbar WO Contrast (36027) 07/01/19 24 Encounters Encounter Diagnosis Start Date Code Code Sys tem Low back pain, unspecified 07/23/2023 S NOMED-CT Personal Care Team Section Performer Name Performer Role Active Date Inactive Da te
--- OUTSIDE RECORDS SUMMARY | 2024-08-03 01:16 | XMS_ITS | Referral Summary ---
Author Organization [facility] Address [address] [place] [address] Care Team Providers Care Taxation Economist Name Role Phone Patrice Ledesma MD Primary Care Provider [phone] Source Comments [facility],non-owned Affiliates and Associated Physician Practices is amultiple site organization consisting of ambulatory clinics and hospital sitesin [place], [place], [place] and [place]. This disclosure is being madepursuant to the Care Everywhere program and may not contain all information available regarding this patient. Last updated 18.[facility] [employer] Allergies Active Allergy Reactions Criticality Noted Date Comments Butorphanol Itching 02/08/2016 Medications * Be aware that medications may not be up to date on this document. Alwaysverify current medications with the patient. Medication Sig Dispensed Refills Start Date End Date Status atenolol (TENORMIN) 50 MG tablet Take 50 mg by mouth Act arnold cyclobenzaprine (FLEXERIL) 10 MG tablet Take 10 mg by mouth every 8 hours Active morphine (MSIR) 30 MG tablet Take 30 mg by mouth 2 times daily Active raNITIdine (ZANTAC) 150 MG capsule Active sildenafil (VIAGRA) 50 MG tablet Take 50 mg by mouth Act arnold docusate sodium (COLACE) 100 MG capsule Take 1 Cap by mouth 2 times daily 60 Cap 1 03/02/2016 Active magnesium hydroxide (MILK OF MAGNESIA) 400 MG/5ML suspension Take 30 mL by mouth once daily as needed for Constipation 118 mL 1 03/02/2016 Active senna (SENOKOT) 8.6 MG tablet Take 1 Tab by mouth at bedtime 30 Tab 1 03/02/2016 Active morphine (MSIR) 30 MG tablet Take 1 Tab by mouth 2 times daily 60 Tab 03/02/2016 Active oxyCODONE-acetamino phen (PERCOCET) 5-325 MG tablet Take 1 Tab by mouth every 6 hours as needed 90 Tab 03/02/2016 Active Active Problems Problem Noted Date Diagnosed Date Primary osteoarthritis of left hip Immunizations Name Administration Dates Next Due INFLUENZA VACCINE, QUADR. (F LUZONE; FLULAVAL; FLUARIX; AFLURIA QUADRIVALENT; 6MO+), 0.5 ML (IIV4) 03/01/2016 Social History Tobacco Use Types Packs/Day Years Used Date Smoking Tobacco: Former Cigarettes Q uit: 12/30/2015 Smokeless Tobacco: Current Chew Alcohol Use Standard Drinks/Week Comments No 0 (1 standard drink = 0.6 oz pur e alcohol) Sex and Gender Information Value Date Recorded Sex Assigned at Not on file Gender Identity Not on file Sexual Orientation Not on file Last Filed Vital Signs Vital Sign Reading Time Taken Comments Blood Pressure 137/99 08/21/2016 8:40 AM CDT Pulse 76 08/21/2016 8:40 AM CDT Temperature 36.9 C (98.4 F) 08/21/2016 8:40 AM CDT Respiratory Rate 18 03/02/2016 8:47 AM CDT Oxygen Saturation 98% 03/02/2016 8:47 AM CDT Inhaled Oxygen Concentration - - Weight 99.8 kg (220 lb) 04/30/2017 10:26 AM FELT HAT MELLOWING MACHINE OPERATOR Height 171.5 cm (5' 7.5 ) 04/30/2017 10:26 AM CS T Body Mass Index 33.95 04/30/2017 10:26 AM FELT HAT MELLOWING MACHINE OPERATOR Functional Status Functional Status Response Date of Assess ment Is person deaf or have serious hearing difficult y? No 02/29/2016 Is person blind or have serious difficulty seein g? No 02/29/2016 Does person have serious dif ficulty walking/climbing stairs? Yes 02/29/2016 Does person have difficulty dressing/bathing? No 02/29/2016 Does person have difficulty doing errands alone? Yes 02/29/2016 Cognitive Status Response Date of Assessm ent Does person have difficulty concentrating/remembering/making decisions? No 02/29/2016 Plan of Treatment Not on file Medical Devices Implanted Type Area Pilot Safety Inspector Device Identifier Shelf Expiration Date Model / Serial / Lot Shell Acetab 3hole 56mm Implanted:Qty: 1 on 02/29/2016 by Derrek Deleon MD at [facility] [place] [facility] Left: Hip [employer] 08/02/2025 [id number] / / [id number] 40mm Acetabular Screw Implanted:Qty: 1 on 02/29/2016 by Derrek Deleon MD at [facility] [place] Left: Hip [employer] 09/16/2024 [id number] / / [id number] Liner Actb R3 0d 56mm 36mm Xlpe Hip Strl Implanted:Qty: 1 on 02/29/2016 by Derrek Deleon MD at [facility] [place] Left: Hip [employer] 05/29/2025 [id number] / / [id number] Size 10 Femoral Component Implanted:Qty: 1 on 02/29/2016 by Derrek Deleon MD at [facility] [place] Left: Hip [employer] 07/24/2025 [id number] / / [id number] 36 Mm Femoral Head Implanted:Qty: 1 on 02/29/2016 by Derrek Deleon MD at [facility] [place] Left: Hip [employer] 11/06/2025 [id number] / / [id number] Luke Uncem Hip All Inclusive Implanted:Qty: 1 on 02/29/2016 by Derrek Deleon MD at [facility] [place] [employer] BILL ONLY [employer] HIP ALL INCLUSIVE SNORTH / / Advance Directives * Full Code (Latest Code Status on File) Date Activated Date Inactivated Comments 02/29/2016 4:21 PM 03/02/2016 1:21 PM Care Teams Taxation Economist Relationship Specialty Start Date End Date Patrice Ledesma MD [address] [place], [place] [id number] PCP - General Internal Medicine 11/30/13
--- OUTSIDE RECORDS SUMMARY | 2024-08-03 01:16 | XMS_ITS | Clinical Summary ---
Author Organization [facility] Address [address] [place] [address] Phone Care Team Providers Care Electroplating Technician Name Role Phone KWASI OTERO MD Primary Care Provider [phone] Reason for Visit and Chief Complaint * PHONE CALL Problems Includes: Problems addressed during this encounter and other active Problems All Visits Onset Date Resolved Date Provider Condition S tatus Gerd 02/04/2020 KATIE L JOLENE ANP-BC A ctive Last Documented On 0 2:45PM ; [facility] Hyperlipidemia 02/04/2020 KATIE L JOLENE ANP- BC Active Last Documented On 0 2:46PM ; [facility] Essential Hypertension 02/04/2020 KATIE L BLEV INS ANP-BC Active Last Documented On 0 2:44PM ; [facility] Left Hip Pain 02/04/2020 KATIE L JOLENE ANP-B C Active Last Documented On 0 2:44PM ; [facility] Chronic Low Back Pain 02/04/2020 KATIE L BLEVI NS ANP-BC Active Last Documented On 0 2:44PM ; [facility] Osteoarthritis 02/04/2020 KATIE L JOLENE ANP- BC Active Last Documented On 0 2:46PM ; [facility] Coronary Artery Disease Unknown ZULEIMAMIKE NEGRO LP WIRE LOOP MACHINE OPERATOR-FPA, CAMP MAINTENANCE SUPERVISOR-BC Active Last Documented On 3 10:18AM ; [facility] Obesity Unknown ZULEIMA Vázquez FERNIE WIRE LOOP MACHINE OPERATOR-FPA, CAMP MAINTENANCE SUPERVISOR-BC Active Last Documented On 3 10:17AM ; [facility] Nonorganic Sleep Apnea Obstructive Unknown M MILKA NANI BOOTH Active Last Documented On 3 10:17AM ; [facility] Plan of Treatment No Plan of Treatment Recorded Assessments Includes: Assessments from this encounter No Assessments Recorded Medical Equipment - Implanted Devices Includes: Current Devices No Medical Equipment Recorded Medications Includes: Medications discussed during this encounter and other current Medications Discontinued / Stopped on this date FATOUMATA GRAFFBC on 08/04/2023 Xtampza ER 18 MG Oral Capsul e ER 12 Hour Abuse-Deterrent Provider: NANI CASTRO Diagnosis: Spinal stenosis, lumbar region without neurogenic gini Last Documented On 4 2:34PM By ZULEIMA CARDOZA ; [facility] buPROPion HCl ER (SR) 100 MG Oral Tablet Extended Release 12 Hour Provider: NANI MAI Diagnosis: Last Documented On 4 9:07AM By ZULEIMA CARDOZA ; [facility] DULoxetine HCl 20 MG Oral Ca psule Delayed Release Particles Provider: KWASI OTERO MD Diagnosis: Last Documented On 4 9:07AM By ZUELIMA CARDOZA ; [facility] New / Renewed during this visit NANI GRAFF on 08/04/2023 Xtampza ER 18 MG Oral Capsul e ER 12 Hour Abuse-Deterrent Provider: NANI CASTRO 14 day supply: 28 capsule, 0 refills Diagnosis: Spinal stenosis, lumbar region without neurogenic gini One tablet twice a day with food and water Pharmacy: [address], [phone] - Last Documented On 4 10:11AM By ZULEIMA CARDOZA ; [facility] Current Medications (continue as prescribed) oxyCODONE-Acetaminophen 7.5- 325 MG Oral Tablet 11/05/2023 Provider: ZULEIMA G FERNIE WIRE LOOP MACHINE OPERATOR- FPA, CAMP MAINTENANCE SUPERVISOR-BC Diagnosis: One tablet three times a day as needed for severe pain every 6-8 hours Last Documented On 4 11:14AM By ZULEIMA CARDOZA ; [facility] tiZANidine HCl 2 MG Oral Tablet 10/02/2023 Provider: NANI MAI Diagnosis: Other spondylosi s, lumbar region take 1-2 three times daily a s needed for muscle spasm Last Documented On 4 10:35AM By ZULEIMA CARDOZA ; [facility] Gabapentin 300 MG Oral Capsule 10/02/2023 Provider: ZULEIMA LOVING CAMP MAINTENANCE SUPERVISOR- Diagnosis: Spinal stenosis, lumbar region without neurogenic gini 1 capsule three times a day Last Documented On 4 10:35AM By ZULEIMA CARDOZA ; [facility] Xtampza ER 18 MG Oral Capsul e ER 12 Hour Abuse-Deterrent 10/02/2023 Provider: ZULEIMA GARAY CAMP MAINTENANCE SUPERVISOR- Diagnosis: Spinal stenosis, lumbar region without neurogenic gini One tablet twice a day with food and water Last Documented On 4 10:35AM By ZULEIMA CARDOZA ; [facility] Narcan 4 MG/0.1ML Nasal Liquid 08/04/2023 Provider: SOCO GRAFFMAIRA Diagnosis: Spinal stenosis, lumbar region without neurogenic gini 1 spray intranasally for anthony pected overdose Last Documented On 4 10:04AM By ZULEIMA CARDOZA ; [facility] Lidocaine 5% External Patch 03/02/2023 Provider: ZULEIMA LOVING CAMP MAINTENANCE SUPERVISOR- Diagnosis: Primary osteoart hritis, right shoulder apply up to 3 patches daily to area of pain to R shoulder, neck, or low back and then remove for 12 hours Last Documented On 3 12:38PM By ZULEIMA CARDOZA ; [facility] Brian-Citrate Plus Vitamin D 250-2.5 MG-MCG Oral Tablet 11/29/2022 Provider: Diagnosis: Last Documented On 3 11:46AM By ZULEIMA CARDOZA ; [facility] Aspir-Low 81 MG Oral Tablet Delayed Release 09/09/2022 Provider: Diagnosis: Last Documented On 3 12:36PM By ZULEIMA CARDOZA ; [facility] Metoprolol Succinate ER 50 M G Oral Tablet Extended Release 24 Hour 09/05/2022 Provider: PRADEEP Lewis MD Diagnosis: Last Documented On 3 12:36PM [facility] ; [facility] Isosorbide Mononitrate ER 30 MG Oral Tablet Extended Release 24 Hour 07/04/2022 Provider: KWASI Carlton Diagnosis: Last Documented On 3 12:36PM By ZULEIMA CARDOZA ; [facility] Atorvastatin Calcium 40 MG Oral Tablet 07/04/2022 Pr ovider: KWASI OTERO MD Diagnosis: Last Documented On 3 12:36PM By ZULEIMA CARDOZA ; [facility] Nitroglycerin 0.4 MG Subling ual Tablet Sublingual 01/29/2022 Provider: KWASI OTERO MD Diagnosis: As needed. Last Documented On 3 12:36PM By ZULEIMA CARDOZA ; [facility] Medications Administered Includes: Administered Medications from this encounter No Administered Medications Recorded Results Includes: Results discussed during this encounter No Results Recorded For Specified Dates History of Present Illness Includes: History of Present Illness from this encounter No History of Present Illness Recorded Social History Description Last Updated Tobacco non-user 03/10/2023 Last Documented On 4 1:59PM ; [facility] Chewing tobacco 09/09/2022 Last Documented On 4 1:59PM ; [facility] Difficulty walking 09/09/2022 Last Documented On 4 1:59PM ; [facility] No consumption of alcohol 09/09/2022 Last Documented On 4 1:59PM ; [facility] Not using drugs 09/09/2022 Last Documented On 4 1:59PM ; [facility] Non-smoker 02/01/2020 Last Documented On 4 1:59PM ; [facility] Smoking Status Unknown Procedures and Surgical History Surgical History Last Updated No Pacemaker 09/09/2022 Last Documented On 4 1:59PM ; [facility] Medical History Includes: Medical History addressed during this encounter Description Last Updated Chronic Hepatitis C w/ stage 1 Cirrhosis on BX ~BPH ~PVD ~IDALIA ~CAD ~Chronic Hip pain ~Chronic Flank Pain ~ ~Last Labs received 08/24/22: ~eGFR 78 ~Creatinine 1.09 ~AST 18 ~ALT 25 ~Alk Phos 66 ~Total Bili 1.1 ~Platelets 291 10/28/2022 Last Documented On 4 1:59PM ; [facility] History of hyperlipidemia 09/09/2022 Last Documented On 4 1:59PM ; [facility] History of systemic hypertension 023 Last Documented On 4 1:59PM ; [facility] Please list all surgeries: Hip replacmen t . 09/09/2022 Last Documented On 4 1:59PM ; [facility] Denies a fear of falling. 09/09/2022 Last Documented On 4 1:59PM ; [facility] Has had no fall in the last 12 months. 0 09/09/2022 Last Documented On 4 1:59PM ; [facility] Back brace 09/09/2022 Last Documented On 4 1:59PM ; [facility] CT/MRI Neck 10/0709/09/2022 Last Documented On 4 1:59PM ; [facility] Currently wearing eyeglasses 09/09/2022 Last Documented On 4 1:59PM ; [facility] Injection/Nerve blocks 09/09/2022 Last Documented On 4 1:59PM ; [facility] No Pain Pump 09/09/2022 Last Documented On 4 1:59PM ; [facility] No Spinal cord stimulator 09/09/2022 Last Documented On 4 1:59PM ; [facility] Pain Clinic 09/09/2022 Last Documented On 4 1:59PM ; [facility] Physical therapy 09/09/2022 Last Documented On 4 1:59PM ; [facility] Please list all illnesses/co nditions you have been diagnosed with: Microvascular disease 09/09/2022 Last Documented On 4 1:59PM ; [facility] Uses a cane for support 09/09/2022 Last Documented On 4 1:59PM ; [facility] X-rays Back shoulder neck hip 07/11 Last Documented On 4 1:59PM ; [facility] No previous psychiatric treatment 2019 Last Documented On 4 1:59PM ; [facility] Family History Includes: Family History addressed during this encounter Description Last Updated Fraternal history of family history of i schemic heart disease 09/09/2022 Last Documented On 4 1:59PM ; [facility] Maternal history of Arthritis 09/09/2022 Last Documented On 4 1:59PM ; [facility] Family history of cancer father 02/04/20 20 Last Documented On 4 1:59PM ; [facility] Family history of heart disease father 0 02/04/2020 Last Documented On 4 1:59PM ; [facility] Family medical history was unknown Mothe r, rhuematoid arthritis 02/04/2020 Last Documented On 4 1:59PM ; [facility] Review of Systems Includes: Review of Systems from this encounter No Review of Systems Recorded Mental Status Includes: Mental Status from this encounter No Mental Status Recorded Functional Status Includes: Functional Status from this encounter No Functional Status Recorded Physical Exam Includes: Physical Exam from this encounter No Physical Exam Recorded Allergies Includes: Active Allergies Substance Type Reaction Onset Date Resolved Date Statu s Stadol Allergy 09/09/2022 Active Last Documented On 4 9:55AM ; [facility] Encounters Encounter Provider Location Date Check-In Time Check-Out Time Diagnosis * PHONE CALL ZULEIMA ENCISO APRN-FPA, CAMP MAINTENANCE SUPERVISOR-BC 08/04/2023 2:00PM 11:59PM Insurance Includes: Active Insurance Policies Plan Name Member ID Group # Subscriber Relationship Effect arnold Dates 1 - [facility] [id number] PRADEEP ROSE Self Clinical Notes Includes: Clinical Notes from this encounter * Progress note Date Encounter Last Documented by 08/04/2023 * PHONE CALL Last documented on 08/04/2023; 2:34 PM, ZULEIMA ENCISO APRN-FPA, SOCO-BC; [facility] Active Problems & Conditions - Chronic Low Back Pain - Coronary Artery Disease - Essential Hypertension - Gerd - Hyperlipidemia - Left Hip Pain - Nonorganic Sleep Apnea Obstructive - Obesity - Osteoarthritis Chief Complaint Phone Call - Chief Concern: reason for call: Naveed mckeon not able to get Xtampza ER [facility] 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 Current Medication - Aspir-Low 81 MG Oral Tablet Delayed Release 2 puffs four times a day 0 days, 0 refills - Atorvastatin Calcium 40 MG Oral Tablet One tablet daily 90 days, 0 refills - Brian-Citrate Plus Vitamin D 250-2.5 MG-MCG Oral Tablet One tablet daily 0 days, 0 refills - Gabapentin 100 MG Oral Capsule One tablet three times a day 30 days, 0 refills - HYDROcodone-Acetaminophen 7.5-325 MG Oral Tablet One tablet three times a day as needed for severe pain, 30 days, 0 refills - Isosorbide Mononitrate ER 30 MG Oral Tablet Extended Release 24 Hour One tablet daily 90 days, 0 refills - Lidocaine 5% External Patch apply up to 3 patches daily to area of pain to R shoulder, neck, or low back and then remove for 12 hours, 30 days, 2 refills - Metoprolol Succinate ER 50 MG Oral Tablet Extended Release 24 Hour One tablet daily 90 days, 0 refills - Narcan 4 MG/0.1ML Nasal Liquid 1 spray intranasally for suspected overdose, 30 days, 0 refills - Narcan 4 MG/0.1ML Nasal Liquid 1 spray intranasally for suspected overdose, 30 days, 0 refills - Nitroglycerin 0.4 MG Sublingual Tablet Sublingual as directed As needed., 25 days, 0 refills - tiZANidine HCl 2 MG Oral Tablet take 1-2 three times daily as needed for muscle spasm, 14 days, 0 refills Past Medical/Surgical History Reported: Back brace, Injection/Nerve blocks, Pain Clinic, Physical therapy, Please list all illnesses/conditions you have been diagnosed with: Microvascular disease, and Please list all surgeries: Hip replacment . Medical: No previous psychiatric treatment. Currently wearing eyeglasses and orthopedic history Uses a cane for support. No Spinal cord stimulator and no Pain Pump. Surgical / Procedural: No Pacemaker. Tests: X-rays Back shoulder neck hip 07/[address]/MRI Neck 10/07. Physical Trauma: Has had no fall in the last 12 months. and Denies a fear of falling. Diagnoses: Systemic hypertension. Hyperlipidemia Chronic Hepatitis C w/ stage 1 Cirrhosis on BX BPH PVD IDALIA CAD Chronic Hip pain Chronic Flank Pain Last Labs received 08/24/22: eGFR 78 Creatinine 1.09 AST 18 ALT 25 Alk Phos 66 Total Bili 1.1 Platelets 291. Social History Difficulty walking. Tobacco use: Tobacco non-user, chewing tobacco, and non-smoker. Alcohol: No consumption of alcohol. Drug Use: Not using drugs. Allergies - Stadol Family History Family medical history was unknown Mother, rhuematoid arthritis Cancer father Heart disease father Maternal: Arthritis Fraternal: Ischemic heart disease Plan StartCited - Spinal stenosis, lumbar region without neurogenic gini Xtampza ER 18 MG capsule One tablet twice a day with food and water, 14 days, 0 refills EndCited Care Team - KWASI OTERO MD - Primary Care Health Reminders - Assess Need for CT Lung Screen satisfied 08/04/2023. - Assess Tobacco Use satisfied 08/04/2023.
--- OUTSIDE RECORDS SUMMARY | 2024-08-03 01:16 | XMS_ITS ---
Author Organization Unknown Address [address] [place] [phone] Phone Care Team Providers Care Morgue Keeper Name Role Phone SHANNA VILLALPANDO Attending Unavailable Immunization Immunization Date Status Additional Notes [...] virus, quadrivalent, PF 03/01/2016 Completed 150 CVX Results KNEE 3V RIGHT - Completed: 1 06/08/2022 13:00 LOINC: EXAM DESCRIPTION: KNEE 3V RIGHT REASON FOR STUDY: medial rt knee pain TECHNIQUE: 3 radiographic view(s) of the right knee . COMPARISON: None FINDINGS: No acute fracture or malalignment. Moderate osteoarthritis involving the medial compartment. No knee joint effusion. The soft tissues are normal. IMPRESSION: No acute osseous abnormality. Moderate osteoarthritis involving the medial compartment. THIS IS AN ELECTRONICALLY VERIFIED FINAL REPORT 04/08/2023 1:04 PM - Electronically signed by Felix Hinton M.D. KR: ALPHONSO Report ID: [id number] Reading Location: [place] [address] Social History Type Status Start Date End Date Code Code Syst em Smoking History Never smoker (Never Smoked) 844138161 SNOMED CT Sex Male Assessment You had [...] VIRAL HEPATITIS C WITHOUT HEPATIC COMA active [id number] SNOMED- CT Plan of Treatment MRI Lumbar WO Contrast (01582) 07/01/19 24 Encounters Encounter Diagnosis Start Date Code Code Sys tem Unilateral primary osteoarthritis, right hip 3 SNOMED-CT Personal Care Team Section Performer Name Performer Role Active Date Inactive Da te Imaging Narrative Notes
--- OUTSIDE RECORDS SUMMARY | 2024-08-03 01:16 | XMS_ITS | Clinical Summary ---
Author Organization [facility] Address [address] [place] [address] Care Team Providers Care Renovation Plant Supervisor Name Role Phone Patrice Ledesma MD Primary Care Provider Source Comments [facility],non-owned Affiliates and Associated Physician Practices is amultiple site organization consisting of ambulatory clinics and hospital sitesin [place], [place], [place] and [place]. This disclosure is being madepursuant to the Care Everywhere program and may not contain all information available regarding this patient. Last updated 18.[facility] Allergies Active Allergy Reactions Criticality Noted Date [...] 99.8 kg (220 lb) 04/30/2017 10:26 AM GEODUCK DIVER Height 171.5 cm (5' 7.5 ) 04/30/2017 10:26 AM CS T Body Mass Index 33.95 04/30/2017 10:26 AM GEODUCK DIVER Plan of Treatment Health Maintenance Due Date Last Done Comments COLOGUARD (AGES 45-75) - COL ON CA SCREENING 1961 COLON MONITORING 1961 COLONOSCOPY - COLON CA SCREENING 1961 CT COLONOGRAPHY - COLON CA SCREENING 1961 Colorectal Cancer Screening 1961 FIT - COLON CA SCREENING 1961 FLEX SIG - COLON CA SCREENING 1961 HIV SCREENING 1976 HEPATITIS C SCREENING 10/17/1979 DTAP/TDAP/TD VACCINES (1 - Tdap) 1980 PNEUMOCOCCAL VACCINE 50+ (1 of 1 - PCV) 10/22/2011 ZOSTER VACCINE (1 of 2) 10/22/2011 COVID-19 VACCINE (1 - 2023-2 5 season) 2024 INFLUENZA VACCINE (#1) 2024 03/01/2016 DEPRESSION SCREENING 05/19/2024 Respiratory Syncytial Virus (RSV) Vaccine Pt: or over 60 yrs (1 - 1-dose 75+ series) 2036 HEPATITIS B VACCINE Aged Out No longe r eligible based on patient's age to complete this topic HIB VACCINE Aged Out No longer eligi ble based on patient's age to complete this topic HPV VACCINE Aged Out No longer eligi ble based on patient's age to complete this topic MENINGOCOCCAL (Group B) VACC INE SHARED DECISION-MAKING Aged Out No longer eligibl e based on patient's age to complete this topic MENINGOCOCCAL GROUPS A/C/Y/W VACCINE Aged Out No longer eligible b ased on patient's age to complete this topic PNEUMOCOCCAL VACCINE Aged Out No long er eligible based on patient's age to complete this topic Medical Devices Implanted Type Area [employer] Device Identifier Shelf Expiration Date Model / Serial / Lot Shell Acetab 3hole 56mm Implanted:Qty: 1 on 02/29/2016 by Derrek Deleon MD at [facility] [place] Left: Hip [employer] 08/02/2025 [id number] / / [id number] 40mm Acetabular Screw Implanted:Qty: 1 on 02/29/2016 by Derrek Deleon MD at [facility] [place] Left: Hip [employer] 09/16/2024 [id number] / / [id number] Liner Actb R3 0d 56mm 36mm Xlpe Hip Strl Implanted:Qty: 1 on 02/29/2016 by Derrek Deleon MD at [facility] [place] Left: Hip [employer] 05/29/2025 [id number] / / [id number] 10 Femoral Component Implanted:Qty: 1 on 02/29/2016 by Derrek Deleon MD at [facility] [place] Left: Hip [employer] 07/24/2025 [id number] / / [id number] 36 Mm Femoral Head Implanted:Qty: 1 on 02/29/2016 by Derrek Deleon MD at [facility] [place] Left: Hip [employer] 11/06/2025 [id number] / / [id number] Luke Uncem Hip All Inclusive Implanted:Qty: 1 on 02/29/2016 by Derrek Deleon MD at [facility] [place] [employer] BILL ONLY [employer] HIP ALL INCLUSIVE SNORTH / / Advance Directives * Full Code (Latest Code Status on File) Date Activated Date Inactivated Comments 02/29/2016 4:21 PM 03/02/2016 1:21 PM Care Teams Renovation Plant Supervisor Relationship Specialty Start Date End Date Patrice Ledesma MD [address] [place] [address] PCP - General Internal Medicine 11/30/13
--- OUTSIDE RECORDS SUMMARY | 2024-08-03 01:16 | XMS_ITS | Patient Health Summary ---
Author Organization [facility] Address [address] [place] [address] Care Team Providers Care Statuary Painter Name Role Phone Patrice Ledesma MD Primary Care Provider [phone] Note from [facility],non-owned Affiliates and Associated Physician Practices is amultiple site organization consisting of ambulatory clinics and hospital sitesin [place], [place], [place] and [place]. This disclosure is being madepursuant to the Care Everywhere program and may not contain all information available regarding this patient. Last updated 18.[facility] Allergies * Butorphanol(Itching) Medications * Be aware that medications may not be up to date on this document. Alwaysverify current medications with the patient. * atenolol (TENORMIN) 50 MG tablet Take 50 mg by mouth * cyclobenzaprine (FLEXERIL) 10 MG tablet Take 10 mg by mouth every 8 hours * morphine (MSIR) 30 MG tablet Take 30 mg by mouth 2 times daily * raNITIdine (ZANTAC) 150 MG capsule * sildenafil (VIAGRA) 50 MG tablet Take 50 mg by mouth * docusate sodium (COLACE) 100 MG capsule(Started 03/02/2016) Take 1 Cap by mouth 2 times daily 1 refill remaining * magnesium hydroxide (MILK OF MAGNESIA) 400 MG/5ML suspension(Started 03/02/2016) Take 30 mL by mouth once daily as needed for Constipation 1 refill remaining * senna (SENOKOT) 8.6 MG tablet(Started 03/02/2016) Take 1 Tab by mouth at bedtime 1 refill remaining * morphine (MSIR) 30 MG tablet(Started 03/02/2016) Take 1 Tab by mouth 2 times daily * oxyCODONE-acetaminophen (PERCOCET) 5-325 MG tablet(Started 03/02/2016) Take 1 Tab by mouth every 6 hours as needed Active Problems Problem Noted Date Diagnosed Date Primary osteoarthritis of left hip Immunizations * INFLUENZA VACCINE, QUADR. (FLUZONE; FLULAVAL; FLUARIX; AFLURIA QUADRIVALENT; 6MO+), 0.5 ML (IIV4)(Given 03/01/2016) Social History Tobacco Use Types Packs/Day Years [...] 99.8 kg (220 lb) 04/30/2017 10:26 AM [employer] Height 171.5 cm (5' 7.5 ) 04/30/2017 10:26 AM CS T Body Mass Index 33.95 04/30/2017 10:26 AM [employer] Medical Devices Implanted Type Area Front Desk Officer Device Identifier Shelf Expiration Date Model / Serial / Lot Shell Acetab 3hole 56mm Implanted:Qty: 1 on 02/29/2016 by Derrek Deleon MD at [facility] Left: Hip [employer] 08/02/2025 [id number] / / [id number] 40mm Acetabular Screw Implanted:Qty: 1 on 02/29/2016 by Derrek Deleon MD at [facility] Left: Hip [employer] 09/16/2024 [id number] / / [id number] Liner Actb R3 0d 56mm 36mm Xlpe Hip Strl Implanted:Qty: 1 on 02/29/2016 by Derrek Deleon MD at [facility] Left: Hip [employer] 05/29/2025 [id number] / / [id number] 10 Femoral Component Implanted:Qty: 1 on 02/29/2016 by Derrek Deleon MD at [facility] Left: Hip [employer] 07/24/2025 [id number] / / [id number] 36 Mm Femoral Head Implanted:Qty: 1 on 02/29/2016 by Derrek Deleon MD at [facility] Left: Hip [employer] 11/06/2025 [id number] / / [id number] Uncem Hip All Inclusive Implanted:Qty: 1 on 02/29/2016 by Derrek Deleon MD at [facility] [employer] BILL ONLY UNCEM HIP ALL INCLUSIVE SNORTH / / Procedures * XR PELVIS W LEFT HIP 2VW(Performed 04/30/2017) Performed for Hip pain, left * XR SPINE ENTIRE 2 OR 3VW(Performed 08/21/2016) * XR LUMBAR SPINE 2 OR 3VW(Performed 08/21/2016) * XR PELVIS W LEFT HIP 2VW(Performed 07/10/2016) Performed for History of left hip replacement * XR PELVIS W LEFT HIP 2VW(Performed 05/01/2016) Performed for S/P hip replacement, left * XR FEMUR LEFT 2VW(Performed 04/03/2016) Performed for S/P hip replacement, left * XR PELVIS W LEFT HIP 2VW(Performed 04/03/2016) Performed for S/P hip replacement, left * CARDIAC RHYTHM STRIP ORDER(Performed 03/05/2016) * CBC W AUTO DIFFERENTIAL(Performed 03/02/2016) * CT LOWER EXT LEFT WO CONTRAST(Performed 03/01/2016) Performed for Status post left hip replacement, Primary osteoarthritis of left hip * COMPREHENSIVE METABOLIC PANEL(Performed 03/01/2016) * CBC W AUTO DIFFERENTIAL(Performed 03/01/2016) * XR PELVIS W LEFT HIP 2VW(Performed 02/29/2016) Performed for Status post left hip replacement * EXCISION/RESECTION HETEROTOPIC OSSIFICATION HIP(Performed 02/29/2016) Performed for Osteoarthritis of left hip, unspecified osteoarthritis type * ARTHROPLASTY TOTAL HIP MELO/NEPHEW(Performed 02/29/2016) Performed for Osteoarthritis of left hip, unspecified osteoarthritis type * BLOOD TYPE VERIFICATION(Performed 02/29/2016) * TYPE + SCREEN PANEL(Performed 02/29/2016) * URINALYSIS REFLEX MICROSCOPIC REFLEX CULTURE(Performed 02/08/2016) Performed for Pre-op testing * TRANSFERRIN(Performed 02/08/2016) Performed for Pre-op testing * ALBUMIN BLOOD(Performed 02/08/2016) Performed for Pre-op testing * BASIC METABOLIC PANEL (CALCIUM TOTAL)(Performed 02/08/2016) Performed for Pre-op testing * CBC W AUTO DIFFERENTIAL(Performed 02/08/2016) Performed for Pre-op testing * CULTURE MSSA/MRSA(Performed 02/08/2016) Performed for Pre-op testing * XR HIP LEFT 2VW OR MORE(Performed 12/07/2013) Performed for Pain in joint, pelvic region and thigh, left Results * XR PELVIS W LEFT HIP 2VW (04/30/2017 10:44 AM [employer]) Only the most recent of5 resultswithin the time period is included. Anatomical Region Laterality Modality Radiographic Pura ging 04/30/2017 10:5 0 AM [employer] Impressions 04/30/2017 10:51 AM [employer] Left total hip arthroplasty in unchanged near anatomic position. Narrative 04/30/2017 10:51 AM [employer] Examination: Left hip minimum 2 views with AP pelvis History: Left hip osteoarthritis Findings: 2 views of the left hip and an AP view the pelvis were performed with comparison made to 07/10/2016. There is a left total hip arthroplasty without periprosthetic fracture or lucency. Heterotopic ossification near the neck of the prosthesis is unchanged. There is mild right hip osteoarthritis which appears unchanged. No acute fracture of the pelvis is noted. Procedure Note Nick العراقي MD - 04/30/2017 Examination: Left hip minimum 2 views with AP pelvis History: Left hip osteoarthritis Findings: 2 views of the left hip and an AP view the pelvis were performed with comparison made to 07/10/2016. There is a left total hip arthroplasty without periprosthetic fracture or lucency. Heterotopic ossification near the neck of the prosthesis is unchanged. There is mild right hip osteoarthritis which appears unchanged. No acute fracture of the pelvis is noted. IMPRESSION Left total hip arthroplasty in unchanged near anatomic position. Derrek Deleon MD DIAGNOSTIC IMAGING ORDERABLES * XR SPINE ENTIRE 2 OR 3VW (08/21/2016 8:50 AM CDT) Anatomical Region Laterality Modality Other Impressions 08/21/2016 11:39 AM CDT Impression: 1. No significant sagittal or coronal imbalance. Mild pelvic tilt. 2. Diffuse moderate lumbar spine degenerative disc disease. Age-indeterminate mild T12 compression deformity versus congenital wedging. Report dictated by Britany Bloom M.D. (market president). I, Dr. NICK العراقي M.D. have personally reviewed and interpreted this examination/study. This report was electronically signed by NICK العراقي M.D. on 08/21/2016 11:39 AM . Narrative 08/21/2016 11:39 AM CDT Exam: 1. Entire spine, 8 views 2. Lumbar spine, 2 views Date: 08/21/2016 8:34 AM History: Low back pain. Comparison: MRI of the lumbar spine done at [facility] on 06/16/2014. Findings: Entire spine: There are 12 rib-bearing thoracic vertebrae and 5 nonrib-bearing lumbar vertebrae. There is multilevel degenerative disc disease in the spine, most pronounced in the lower lumbar spine. No significant scoliosis is seen. No significant sagittal or coronal imbalance is seen. There is mild pelvic tilt with the left iliac wing measuring 1 cm higher than the right. A left hip arthroplasty is noted. Lumbar spine: There is grade 1 anterolisthesis of L5 on S1. There is mild retrolisthesis of L2 on L3 and L3 on L4. No pars defects is identified. There is a mild age- indeterminate compression deformity or congenital wedging of T12. There is multilevel moderate diffuse degenerative disc disease in the lumbar spine. Multilevel facet osteoarthritis is most pronounced at L4-5 and L5-S1. Vascular atherosclerotic calcification is noted. A left hip arthroplasty is partially visualized. The bones are osteopenic. Procedure Note Nick العراقي MD - 08/15/2017 Exam: 1. Entire spine, 8 views 2. Lumbar spine, 2 views Date: 08/21/2016 8:34 AM History: Low back pain. Comparison: MRI of the lumbar spine done at [facility] on 06/16/2014. Findings: Entire spine: There are 12 rib-bearing thoracic vertebrae and 5 nonrib-bearing lumbarvertebrae. There is multilevel degenerative disc disease in the spine,most pronounced in the lower lumbar spine. No significant scoliosis isseen. No significant sagittal or coronal imbalance is seen. There is mild pelvic tilt with the left iliac wingmeasuring 1 cm higher than the right. A left hip arthroplasty is noted. Lumbar spine: There is grade 1 anterolisthesis of L5 on S1. There is mild retrolisthesisof L2 on L3 and L3 on L4. No pars defects is identified. There is a mildage-indeterminate compression deformity or congenital wedging of T12.There is multilevel moderate diffuse degenerative disc disease in the lumbar spine. Multilevel facetosteoarthritis is most pronounced at L4-5 and L5-S1. Vascularatherosclerotic calcification is noted. A left hip arthroplasty ispartially visualized. The bones are osteopenic. IMPRESSION Impression: 1. No significant sagittal or coronal imbalance. Mild pelvic tilt. 2. Diffuse moderate lumbar spine degenerative disc disease.Age-indeterminate mild T12 compression deformity versus congenitalwedging. Report dictated by Britany Bloom M.D. (market president). I, Dr. NICK العراقي M.D. have personally reviewed and interpreted thisexamination/study. This report was electronically signed by NICK العراقي M.D. on 08/21/201611:39 AM . Kevin Austin MD DIAGNOSTIC IMAGING O RDERABLES * XR LUMBAR SPINE 2 OR 3VW (08/21/2016 8:34 AM CDT) Anatomical Region Laterality Modality Spine Other Impressions 08/21/2016 11:39 AM CDT Impression: 1. No significant sagittal or coronal imbalance. Mild pelvic tilt. 2. Diffuse moderate lumbar spine degenerative disc disease. Age-indeterminate mild T12 compression deformity versus congenital wedging. Report dictated by Britany Bloom M.D. (market president). I, Dr. NICK العراقي M.D. have personally reviewed and interpreted this examination/study. This report was electronically signed by NICK العراقي M.D. on 08/21/2016 11:39 AM . Narrative 08/21/2016 11:39 AM CDT Exam: 1. Entire spine, 8 views 2. Lumbar spine, 2 views Date: 08/21/2016 8:34 AM History: Low back pain. Comparison: MRI of the lumbar spine done at [facility] on 06/16/2014. Findings: Entire spine: There are 12 rib-bearing thoracic vertebrae and 5 nonrib-bearing lumbar vertebrae. There is multilevel degenerative disc disease in the spine, most pronounced in the lower lumbar spine. No significant scoliosis is seen. No significant sagittal or coronal imbalance is seen. There is mild pelvic tilt with the left iliac wing measuring 1 cm higher than the right. A left hip arthroplasty is noted. Lumbar spine: There is grade 1 anterolisthesis of L5 on S1. There is mild retrolisthesis of L2 on L3 and L3 on L4. No pars defects is identified. There is a mild age- indeterminate compression deformity or congenital wedging of T12. There is multilevel moderate diffuse degenerative disc disease in the lumbar spine. Multilevel facet osteoarthritis is most pronounced at L4-5 and L5-S1. Vascular atherosclerotic calcification is noted. A left hip arthroplasty is partially visualized. The bones are osteopenic. Procedure Note Nick العراقي MD - 08/15/2017 Exam: 1. Entire spine, 8 views 2. Lumbar spine, 2 views Date: 08/21/2016 8:34 AM History: Low back pain. Comparison: MRI of the lumbar spine done at [facility] on 06/16/2014. Findings: Entire spine: There are 12 rib-bearing thoracic vertebrae and 5 nonrib-bearing lumbarvertebrae. There is multilevel degenerative disc disease in the spine,most pronounced in the lower lumbar spine. No significant scoliosis isseen. No significant sagittal or coronal imbalance is seen. There is mild pelvic tilt with the left iliac wingmeasuring 1 cm higher than the right. A left hip arthroplasty is noted. Lumbar spine: There is grade 1 anterolisthesis of L5 on S1. There is mild retrolisthesisof L2 on L3 and L3 on L4. No pars defects is identified. There is a mildage-indeterminate compression deformity or congenital wedging of T12.There is multilevel moderate diffuse degenerative disc disease in the lumbar spine. Multilevel facetosteoarthritis is most pronounced at L4-5 and L5-S1. Vascularatherosclerotic calcification is noted. A left hip arthroplasty ispartially visualized. The bones are osteopenic. IMPRESSION Impression: 1. No significant sagittal or coronal imbalance. Mild pelvic tilt. 2. Diffuse moderate lumbar spine degenerative disc disease.Age-indeterminate mild T12 compression deformity versus congenitalwedging. Report dictated by Britany Bloom M.D. (market president). I, Dr. NICK العراقي M.D. have personally reviewed and interpreted thisexamination/study. This report was electronically signed by NICK العراقي M.D. on 08/21/201611:39 AM . Kevin Austin MD DIAGNOSTIC IMAGING O RDERABLES * XR FEMUR 2 VW LEFT (04/03/2016 10:12 AM [employer]) Anatomical Region Laterality Modality Lower Extremity Radiographic Pura ging 04/03/2016 12:0 1 PM [employer] Impressions 04/03/2016 12:04 PM [employer] Unchanged left total hip arthroplasty with a nondisplaced fracture involving the posterior cortex of the proximal left femoral shaft. Narrative 04/03/2016 12:04 PM [employer] Examination: 1. Pelvis and left hip 2-3 views 2. Left femur 2 views History: Periprosthetic left femur fracture Findings: One view of the pelvis, 2 views of the left hip, and 2 views of the left femur are submitted with comparison to 02/29/2016. There is an unchanged left total hip arthroplasty with a nondisplaced fracture involving the posterior aspect of the proximal left femoral shaft. The appearance is similar to the prior study. The majority of the skin nadya have been removed with a single skin staple remaining in place. There is mild osteoarthritis of the right hip joint. Procedure Note Josef Young MD - 04/03/2016 Examination: 1. Pelvis and left hip 2-3 views 2. Left femur 2 views History: Periprosthetic left femur fracture Findings: One view of the pelvis, 2 views of the left hip, and 2 views of the left femur are submitted with comparison to 02/29/2016. There is an unchanged left total hip arthroplasty with a nondisplaced fracture involving the posterior aspect of the proximal left femoral shaft. The appearance is similar to the prior study. The majority of the skin nadya have been removed with a single skin staple remaining in place. There is mild osteoarthritis of the right hip joint. IMPRESSION Unchanged left total hip arthroplasty with a nondisplaced fracture involving the posterior cortex of the proximal left femoral shaft. Derrek Deleon MD DIAGNOSTIC IMAGING ORDERABLES * CARDIAC RHYTHM STRIP ORDER (03/05/2016 5:19 AM CDT) Narrative 03/05/2016 5:19 AM CDT Ordered by an unspecified provider. Scanned Document CARDIAC SERVICES ORD ERABLES * (ABNORMAL) CBC W AUTO DIFFERENTIAL (03/02/2016 3:09 AM CDT) Only the most recent of3 resultswithin the time period is included. WBC 8.8 4.4 - 10.7 x10E9/L 03/02/2016 7:03 AM CDT [facility] WBC Corrected x10E9/L 03/02/2016 7:03 AM CDT [facility] RBC 3.25(L) 3.80 - 5.40 x10E12/L 03/02/2016 7:03 AM CDT [facility] Hemoglobin 9.6(L) 12.0 - 17.6 gm/dL 03/02/2016 7:03 AM CDT [facility] Hematocrit 27.9(L) 35.2 - 51.7 % 03/02/2016 7:03 AM CDT [facility] MCV 85.8 80.7 - 98.3 fl 03/02/2016 7:03 AM CDT [facility] MCH 29.5 26.7 - 34.0 pg 03/02/2016 7:03 AM CDT [facility] MCHC 34.4 30.8 - 35.9 gm/dL 03/02/2016 7:03 AM CDT [facility] Platelet Count 178 153 - 416 x10E9/L 03/02/2016 7:03 AM CDT [facility] RDW-CV 13.0 12.1 - 14.9 % 03/02/2016 7:03 AM CDT [facility] MPV 11.0 9.4 - 12.9 fl 03/02/2016 7:03 AM CDT [facility] Neutrophils % 51.4 44.0 - 73.0 % 03/02/2016 7:03 AM CDT [facility] Lymphocytes % 32.3 20.0 - 43.0 % 03/02/2016 7:03 AM CDT [facility] Monocytes % 13.6(H) 5.0 - 13.0 % 03/02/2016 7:03 AM CDT [facility] Eosinophils % 1.7 0.0 - 6.0 % 03/02/2016 7:03 AM CDT [facility] Basophils % 0.7 0.0 - 2.0 % 03/02/2016 7:03 AM CDT [facility] Immature Granulocytes 0.3 0 - 1 % 03/02/2016 7:03 AM CDT [facility] Neutrophil Absolute 4.52 2.01 - 7.14 x10E9/L 03/02/2016 7:03 AM CDT [facility] Lymphocytes Absolute 2.84 1.07 - 3.94 x10E9/L 03/02/2016 7:03 AM CDT [facility] Monocytes Absolute 1.20(H) 0.26 - 1.07 x10E9/L 03/02/2016 7:03 AM CDT [facility] Eosinophils Absolute 0.15 0 - 0.47 x10E9/L 03/02/2016 7:03 AM CDT [facility] Basophils Absolute 0.06 0 - 0.08 x10E9/L 03/02/2016 7:03 AM CDT [facility] Immature Granulocytes Absolute 0.03 0.00 - 0.06 x10E9/L 03/02/2016 7:03 AM CDT [facility] nRBC Auto 0 /100 WBC 03/02/2016 7:03 AM CDT [facility] Blood BLOOD SPECIMEN / Unknown 03/02/2016 3:09 AM CDT 03/02/2016 6:59 AM CDT Marlin Barclay MD LAB - HEMATOLOGY ORD ERABLES [facility] [address] [place] [address] * CT LOWER EXTREMITY NON CONTRAST LEFT (03/01/2016 8:56 AM CDT) Anatomical Region Laterality Modality Lower Extremity Computed Tomogra phy 03/01/2016 9:44 AM CDT Impressions 03/01/2016 9:53 AM CDT Left total hip arthroplasty with nondisplaced fracture of the proximal third of the femoral shaft. Narrative 03/01/2016 9:53 AM CDT Examination: CT of the left hip without contrast History: Left hip arthroplasty and concern for periprosthetic fracture Findings: CT of the left hip was performed without intravenous contrast. Comparison is made to 02/29/2016. Images through the soft tissues demonstrates no definite free fluid in the visualized pelvis. Urinary bladder appears decompressed. Soft tissue gas and edema is present about the left hip compatible with the recent surgery. Atherosclerotic vascular calcifications are noted. Several colonic diverticula are partially imaged. There is a nondisplaced fracture of the left proximal femoral shaft without definite extension into the intertrochanteric region. This involves the proximal third of the shaft along its posterior aspect and begins likely just above a vascular channel. Small bony fragments are noted on the lateral aspect of the hip and inferior to the hip. Procedure Note Nick العراقي MD - 03/01/2016 Examination: CT of the left hip without contrast History: Left hip arthroplasty and concern for periprosthetic fracture Findings: CT of the left hip was performed without intravenous contrast. Comparison is made to 02/29/2016. Images through the soft tissues demonstrates no definite free fluid in the visualized pelvis. Urinary bladder appears decompressed. Soft tissue gas and edema is present about the left hip compatible with the recent surgery. Atherosclerotic vascular calcifications are noted. Several colonic diverticula are partially imaged. There is a nondisplaced fracture of the left proximal femoral shaft without definite extension into the intertrochanteric region. This involves the proximal third of the shaft along its posterior aspect and begins likely just above a vascular channel. Small bony fragments are noted on the lateral aspect of the hip and inferior to the hip. IMPRESSION Left total hip arthroplasty with nondisplaced fracture of the proximal third of the femoral shaft. Kiersten Manning MD CT ORDERABLES * (ABNORMAL) COMPREHENSIVE METABOLIC PANEL (03/01/2016 2:24 AM CDT) Glucose 115(H) 74 - 106 mg/dL 03/01/2016 3:39 AM CDT [facility] Sodium 139 136 - 145 mmol/L 03/01/2016 3:39 AM CDT [facility] Potassium 4.3 3.5 - 5.1 mmol/L 03/01/2016 3:39 AM CDT [facility] Chloride 105 98 - 107 mmol/L 03/01/2016 3:39 AM CDT [facility] CO2 24 22 - 31 mmol/L 03/01/2016 3:39 AM CDT [facility] Calcium 7.7(L) 8.5 - 10.1 mg/dL 03/01/2016 3:39 AM CDT [facility] Anion Gap 10 5 - 20 mmol/L 03/01/2016 3:39 AM CDT [facility] BUN 18 7 - 21 mg/dL 03/01/2016 3:39 AM CDT [facility] Creatinine 1.10 0.50 - 1.30 mg/dL 03/01/2016 3:39 AM CDT [facility] Alkaline Phosphatase 51 38 - 126 U/L 03/01/2016 3:39 AM CDT [facility] ALT 32 13 - 61 U/L 03/01/2016 3:39 AM CDT [facility] AST 26 5 - 40 U/L 03/01/2016 3:39 AM CDT [facility] Protein Total 5.9(L) 6.4 - 8.2 gm/dL 03/01/2016 3:39 AM CDT [facility] Albumin 3.2(L) 3.4 - 5.0 gm/dL 03/01/2016 3:39 AM CDT [facility] Bilirubin Total 0.5 0.2 - 1.0 mg/dL 03/01/2016 3:39 AM CDT [facility] eGFR by MDRD >60 >60 mL/min/1.7 3m2 03/01/2016 3:39 AM CDT [facility] eGFR by MDRD >60 >60 mL/min/1.7 3m2 03/01/2016 3:39 AM CDT [facility] Blood BLOOD SPECIMEN / Unknown Lab Venipuncture / Unknown 03/01/2016 2:24 AM CDT 03/01/2016 3:02 AM CDT Kayce Gan APRN-GRADE [employer]AMPER LAB - CHEMISTRY OR DERABLES Performing Organization Address City/[facility]/ZIP Co de Phone Number [facility] [address] [place] [address] * BLOOD TYPE VERIFICATION (02/29/2016 9:55 AM CDT) ABO O 02/29/2016 10:46 AM CDT [facility] Rh Type Negative 02/29/2016 10:46 AM CDT [facility] Miscellaneous samples (specimen) BLOOD SPECIMEN / Unknown Venipuncture / Unknown 02/29/2016 9:55 AM CDT 02/29/2016 10:23 AM CDT Derrek Deleon MD LAB - BLOOD BANK OR DERABLES Performing Organization Address City/[facility] Co de Phone Number [facility] [address] [place] [address] * TYPE + SCREEN PANEL (02/29/2016 9:55 AM CDT) [facility] ABO O 02/29/2016 10:57 AM CDT [facility] Rh Type Negative 02/29/2016 10:57 AM CDT [facility] Comment:History check perfor med. No retype required. Antibody Screen Negative 02/29/2016 10:57 AM CDT [facility] Miscellaneous samples (specimen) BLOOD SPECIMEN / Unknown Venipuncture / Unknown 02/29/2016 9:55 AM CDT 02/29/2016 10:05 AM CDT Felix Bull MD LAB - BLOOD BANK ORD ERABLES Performing Organization Address City/[facility]/ZIP Co de Phone Number [facility] [address] [place] [address] * CULTURE MSSA/MRSA (02/08/2016 10:17 AM CDT) Culture Negative for MRSA/MSSA DAVID 02/10/2016 5:46 AM CDT [facility] Microbiology SPECIMEN FROM NASAL FOSSAE / Unknown Collection / Unknown 02/08/2016 10:17 AM CDT 02/08/2016 10:30 AM CDT Derrek Deleon MD LAB - MICROBIOLOGY ORDERABLES [facility] [address] [place] [phone] * URINALYSIS ROUTINE W/REFLEX TO CULTURE (02/08/2016 10:17 AM CDT) Color UA Yellow Straw, Yellow, Dark Yellow 02/08/2016 10:44 AM CDT [facility] Clarity UA Clear 02/08/2016 10:44 AM CDT [facility] [facility] Specific [place] UA 1.024 1.005 - 1.030 02/08/2016 10:44 AM CDT [facility] pH UA 5.0 5.0 - 8.0 pH 02/08/2016 10:44 AM CDT [facility] Protein UA Negative Negative 02/08/2016 10:44 AM CDT [facility] Blood UA Negative Negative 02/08/2016 10:44 AM CDT [facility] Leukocyte UA Negative Negative 02/08/2016 10:44 AM CDT [facility] Nitrite UA Negative Negative 02/08/2016 10:44 AM CDT [facility] Glucose UA Negative Negative 02/08/2016 10:44 AM CDT [facility] Ketone UA Negative Negative 02/08/2016 10:44 AM CDT [facility] Bilirubin UA Negative Negative 02/08/2016 10:44 AM CDT [facility] Urobilinogen UA 0.2 0.1 - 1.0 EU/dL 02/08/2016 10:44 AM T [facility] Reflex Status Culture not indicated 02/08/2016 10:44 AM T [facility] Urine URINE SPECIMEN OBTAINED BY CLEAN CATCH PROCEDURE / Unknown Collection / Unknown 02/08/2016 10:17 AM CDT 02/08/2016 10:30 AM CDT Derrek Deleon MD LAB - URINALYSIS OR DERABLES [facility] [address] [place] [address] * TRANSFERRIN (02/08/2016 10:17 AM CDT) Transferrin 218 215 - 365 mg/dL 02/08/2016 11:04 AM CDT [facility] Blood BLOOD SPECIMEN / Unknown Venipuncture / Unknown 02/08/2016 10:17 AM CDT 02/08/2016 10:30 AM CDT Derrek Deelon MD LAB - CHEMISTRY ORD ERABLES Performing Organization Address [facility] Co de Phone Number [facility] [address], [place] [id number] * (ABNORMAL) BASIC METABOLIC PANEL (CALCIUM TOTAL) (02/08/2016 10:17 AM CDT) Glucose 98 74 - 106 mg/dL 02/08/2016 11:04 AM [facility] Sodium 141 136 - 145 mmol/L 02/08/2016 11:04 AM [facility] Potassium 3.9 3.5 - 5.1 mmol/L 02/08/2016 11:04 AM [facility] Chloride 109(H) 98 - 107 mmol/L 02/08/2016 11:04 AM [facility] CO2 26 22 - 31 mmol/L 02/08/2016 11:04 AM [facility] Calcium 8.3(L) 8.5 - 10.1 mg/dL 02/08/2016 11:04 AM [facility] Anion Gap 6 5 - 20 mmol/L 02/08/2016 11:04 AM [facility] BUN 21 7 - 21 mg/dL 02/08/2016 11:04 AM [facility] Creatinine 1.10 0.50 - 1.30 mg/dL 02/08/2016 11:04 AM [facility] eGFR by MDRD >60 >60 mL/min/1.7 3m2 02/08/2016 11:04 AM [facility] eGFR by MDRD >60 >60 mL/min/1.7 3m2 02/08/2016 11:04 AM CDT [facility] Blood BLOOD SPECIMEN / Unknown Venipuncture / Unknown 02/08/2016 10:17 AM CDT 02/08/2016 10:30 AM CDT Derrek Deleon MD LAB - CHEMISTRY ORD ERABLES Performing Organization Address [facility] Co de Phone Number [facility] [address] [place] [address] * ALBUMIN BLOOD (02/08/2016 10:17 AM CDT) [facility] Signature Albumin 3.7 3.4 - 5.0 gm/dL 02/08/2016 11:04 AM CDT [facility] Blood BLOOD SPECIMEN / Unknown Venipuncture / Unknown 02/08/2016 10:17 AM CDT 02/08/2016 10:30 AM CDT Derrek Deleon MD LAB - CHEMISTRY ORD ERABLES Performing Organization Address [facility] Co de Phone Number [facility] [address] [place] [phone] * XR HIP 2+ VW LEFT (12/07/2013 10:22 AM CDT) Anatomical Region Laterality Modality Pelvis, Lower Extremity [facility] 12/07/2013 10:2 5 AM CDT Narrative 12/07/2013 11:26 AM CDT LEFT HIP, 3 VIEW HISTORY: Pain. There is marked left-sided joint space narrowing and degenerative change with protrusio acetabulum and hypertrophic changes. Mild right hip degenerative changes are present. Edited by Suzie Carrera on 12/07/2013 10:29 AM Procedure Note Michael Calero MD - 12/07/2013 LEFT HIP, 3 VIEW HISTORY: Pain. There is marked left-sided joint space narrowing and degenerative change with protrusio acetabulum and hypertrophic changes. Mild right hip degenerative changes are present. Edited by Suzie Carrera on 12/07/2013 10:29 AM Emile Barry MD DIAGNOSTIC IMAGING O RDERABLES Care Teams Statuary Painter Relationship Specialty Start Date End Date Patrice Ledesma MD [address] [phone] PCP - General Internal Medicine 11/30/13
--- OUTSIDE RECORDS SUMMARY | 2024-08-03 01:16 | XMS_ITS | Clinical Summary ---
Author Organization [facility] Address [address] [place] [address] Phone Care Team Providers Care Research Laboratory Technician Name Role Phone KWASI OTERO MD Primary Care Provider [phone] Reason for Visit and Chief Complaint * PHONE CALL Problems Includes: Problems addressed during this encounter and other active Problems All Visits Onset Date Resolved Date Provider Condition S tatus Gerd 02/04/2020 KATIE L JOLENE ANP-BC A ctive Last Documented On 0 2:45PM ; [facility] Hyperlipidemia 02/04/2020 KATIE L JOLENE ANP- BC Active Last Documented On 0 2:46PM ; [facility] Essential Hypertension 02/04/2020 KATIE L BLEV INS ANP-BC Active Last Documented On 0 2:44PM ; [facility] Left Hip Pain 02/04/2020 KATIE L JOLENE ANP-B C Active Last Documented On 0 2:44PM ; [facility] Chronic Low Back Pain 02/04/2020 KATIE L BLEVI NS ANP-BC Active Last Documented On 0 2:44PM ; [facility] Osteoarthritis 02/04/2020 KATIE L JOLENE ANP- BC Active Last Documented On 0 2:46PM ; [facility] Coronary Artery Disease Unknown ZULEIMAMIKE NEGRO LP [employer]-FPA, TURNING MACHINE OPERATOR-BC Active Last Documented On 3 10:18AM ; [facility] Obesity Unknown ZULEIMA Vázquez FERNIE [employer]-FPA, TURNING MACHINE OPERATOR-BC Active Last Documented On 3 10:17AM ; [facility] Nonorganic Sleep Apnea Obstructive Unknown M MILKA NANI BOOTH Active Last Documented On 3 10:17AM ; [facility] Plan of Treatment No Plan of Treatment Recorded Assessments Includes: Assessments from this encounter No Assessments Recorded Medical Equipment - Implanted Devices Includes: Current Devices No Medical Equipment Recorded Medications Includes: Medications discussed during this encounter and other current Medications Current Medications (continue as prescribed) oxyCODONE-Acetaminophen 7.5- 325 MG Oral Tablet 11/05/2023 Provider: NANI MAI Diagnosis: One tablet three times a day as needed for severe pain every 6-8 hours Last Documented On 4 11:14AM By ZULEIMA CARDOZA ; [facility] tiZANidine HCl 2 MG Oral Tablet 10/02/2023 Provider: NANI MAI Diagnosis: Other spondylosi s, lumbar region take 1-2 three times daily a s needed for muscle spasm Last Documented On 4 10:35AM By ZULEIMA CARDOZA ; [facility] Gabapentin 300 MG Oral Capsule 10/02/2023 Provider: NANI MAI Diagnosis: Spinal stenosis, lumbar region without neurogenic gini 1 capsule three times a day Last Documented On 4 10:35AM By ZULEIAM CARDOZA ; [facility] Xtampza ER 18 MG Oral Capsul e ER 12 Hour Abuse-Deterrent 10/02/2023 Provider: ZULEIMA GAMBOA P SOCO GARAY-MAIRA Diagnosis: Spinal stenosis, lumbar region without neurogenic gini One tablet twice a day with food and water Last Documented On 4 10:35AM By ZULEIMA CARDOZA ; [facility] Narcan 4 MG/0.1ML Nasal Liquid 08/04/2023 Provider: NANI GRAFF Diagnosis: Spinal stenosis, lumbar region without neurogenic gini 1 spray intranasally for anthony pected overdose Last Documented On 4 10:04AM By ZULEIMA CARDOZA ; [facility] Lidocaine 5% External Patch 03/02/2023 [facility] Diagnosis: Primary osteoart hritis, right shoulder apply up to 3 patches daily to area of pain to R shoulder, neck, or low back and then remove for 12 hours Last Documented On 3 12:38PM By ZULEIMA ENCISO [facility] ; [facility] Brian-Citrate Plus Vitamin D 250-2.5 MG-MCG Oral Tablet 11/29/2022 Provider: Diagnosis: Last Documented On 3 11:46AM [facility] Aspir-Low 81 MG Oral Tablet Delayed Release 09/09/2022 Provider: Diagnosis: Last Documented On 3 12:36PM By [facility] Metoprolol Succinate ER 50 M G Oral Tablet Extended Release 24 Hour 09/05/2022 Provider: PRADEEP Lewis MD Diagnosis: Last Documented On 3 12:36PM By ZULEIMA ENCISO [facility] ; [facility] Isosorbide Mononitrate ER 30 MG Oral Tablet Extended Release 24 Hour 07/04/2022 Provider: KWASI Carlton Diagnosis: Last Documented On 3 12:36PM [facility] Atorvastatin Calcium 40 MG Oral Tablet 07/04/2022 Pr ovider: KWASI OTERO MD Diagnosis: Last Documented On 3 12:36PM By ZULEIMA ENCISO [facility] ; [facility] Nitroglycerin 0.4 MG Subling ual Tablet Sublingual 01/29/2022 Provider: KWASI OTERO MD Diagnosis: As needed. Last Documented On 3 12:36PM By ZULEIMA ENCISO [facility] ; [facility] Medications Administered Includes: Administered Medications from this encounter No Administered Medications Recorded Results Includes: Results discussed during this encounter No Results Recorded For Specified Dates History of Present Illness Includes: History of Present Illness from this encounter No History of Present Illness Recorded Social History No Social History Recorded - Smoking Status Unknown Medical History Includes: Medical History addressed during this encounter No Medical History Recorded Family History Includes: Family History addressed during this encounter No Family History Recorded Review of Systems Includes: Review of Systems [...] Active Last Documented On 4 9:55AM ; [facility] Encounters Encounter Provider Location Date Check-In Time Check-Out Time Diagnosis * PHONE CALL ZULEIMA Gurpreet ENCISO APRN-FPA, TURNING MACHINE OPERATOR-BC 09/19/2023 3:15PM 11:59PM Insurance Includes: Active Insurance Policies Plan Name Member ID Group # Subscriber Relationship Effect arnold Dates 1 - [facility] [id number] PRADEEP ROSE Self Clinical Notes Includes: Clinical Notes from this encounter No Clinical Notes Recorded
--- OUTSIDE RECORDS SUMMARY | 2024-08-03 01:17 | XMS_ITS ---
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 Name Role Phone KWASI OTERO MD Primary Care Provider [phone] Problems Includes: Active, inactive, and resolved Problems All Visits Onset Date Resolved Date Provider Condition S tatus Gerd 02/04/2020 KATIE L JOLENE ANP-BC A ctive Last Documented On 0 2:45PM ; [facility] Hyperlipidemia 02/04/2020 KATIE L JOLENE ANP- BC Active Last Documented On 0 2:46PM ; [facility] Essential Hypertension 02/04/2020 KATIE L BLEV INS ANP-BC Active Last Documented On 0 2:44PM ; [facility] Left Hip Pain 02/04/2020 KATIE L JOLENE ANP-B C Active Last Documented On 0 2:44PM ; [facility] Chronic Low Back Pain 02/04/2020 KATIE L BLEVI NS ANP-BC Active Last Documented On 0 2:44PM ; [facility] Osteoarthritis 02/04/2020 KATIE L JOLENE ANP- BC Active Last Documented On 0 2:46PM ; [facility] Coronary Artery Disease Unknown ZULEIMA NEGRO LP MANUFACTURING TEST TECHNICIAN-FPA, FRE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-BC Active Last Documented On 3 10:18AM ; [facility] Obesity Unknown ZULEIMA NEGROLP MANUFACTURING TEST TECHNICIAN-FPA, FRE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-BC Active Last Documented On 3 10:17AM ; [facility] Nonorganic Sleep Apnea Obstructive Unknown M MILKA Vázquez FERNIE MANUFACTURING TEST TECHNICIAN-FPA, FRE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-BC Active Last Documented On 3 10:17AM ; [facility] Plan of Treatment Referrals To Diagnosis Pain Management [address] [address] - Spondylosis w/o myelopathy or radiculopathy, cervical region Note: consent for right C5-6 , C6-7 facet joint injectionsdone 1st Last Documented On 1 1:35PM ; [facility] Pain Management [address] [address] - Spondylosis w/o myelopathy or radiculopathy, cervical region Note: consent for left C5-6, C6-7 facet joint injectionsdone 2nd Last Documented On 1 7:44AM ; [facility] Pain Management [address] [address] - Other spondylosis, cervical region Note: consent for bilateral C5, C6, C7 medial branch blocks under fluoroscopy [levels C5-6 and C6-7] Last Documented On 4 11:54AM ; [facility] Psychiatrist [address] [address] - Major depressive disorder, recurrent, moderate Note: w/ Guillermina Last Documented On 4 4:17PM ; [facility] Instructions to patient Intervention and counseling on cessation of tobacco use : Patient recieved smoking cessation handout Last Documented On 4 9:47AM ; [facility] Intervention and counseling on cessation of tobacco use : Patient recieved smoking cessation handout Last Documented On 4 9:52AM ; [facility] Intervention and counseling on cessation of tobacco use : Patient recieved smoking cessation handout Last Documented On 4 8:47AM ; [facility] Intervention and counseling on cessation of tobacco use : Patient recieved smoking cessation handout Last Documented On 4 1:04PM ; [facility] Intervention and counseling on cessation of tobacco use : Patient recieved smoking cessation handout Last Documented On 3 9:45AM ; [facility] Intervention and counseling on cessation of tobacco use : Patient recieved smoking cessation handout Last Documented On 3 10:01AM ; [facility] Intervention and counseling on cessation of tobacco use : Patient recieved smoking cessation handout Last Documented On 3 11:24AM ; [facility] Intervention and counseling on cessation of tobacco use : Patient recieved smoking cessation handout Last Documented On 3 8:34AM ; [facility] Education and Decision Aids were provided during visit for: Pill Count: 0 Xtampza [state s he was sick for 2 weeks and wasn't taking it: last dose yesterday morning] Last Documented On 4 10:33AM ; [facility] Pill Count: six Xtampza Last Documented On 4 9:55AM ; [facility] Pill Count: 28 Hydrocodone Last Documented On 4 9:24AM ; [facility] Pill Count: 0 Buprenorphine : Last Documented On 4 1:13PM ; [facility] Pill Count: Buprenorphine : placed last patch 1 week ago Last Documented On 3 9:45AM ; [facility] Pill Count: Buprenorphine : placed last patch 1 week ago Last Documented On 3 10:11AM ; [facility] Pill Count: Buprenorphine Last Documented On 3 11:25AM ; [facility] Pill Count: Buprenorphine Last Documented On 3 11:25AM ; [facility] Pill Count: three Hydrocodon e [diposed today] Last Documented On 3 9:37AM ; [facility] Pill Count: 44 Appropriate Last Documented On 0 12:56PM ; [facility] Assessments Includes: Assessments for all patient encounters Findings Encounter Date [F33.1 - Major depressive di sorder, recurrent, moderate] moderate recurrent major depression PAIN MANAGEMENT FOLLOW UP with ZULEIMA CARRILLO APRN-FPA, FRE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-BC 10/02/2023 Last Documented On 4 10:10AM ; [facility] [M54.81 - Occipital neuralgi a] occipital neuralgia PAIN MANAGEMENT FOLLOW UP with ZULEIMA Vázquez FERNIE MANUFACTURING TEST TECHNICIAN-FPA, FRE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-BC 10/02/2023 Last Documented On 4 10:10AM ; [facility] Arthralgia of right shoulder region PAIN MANAGEMENT FOLLOW UP with ZULEIMA Vázquez FERNIE MANUFACTURING TEST TECHNICIAN-FPA, FRE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-BC 10/02/2023 Last Documented On 4 10:10AM ; [facility] Cervical spondylosis PAIN MANAGEMENT FOL LOW UP with ZULEIMA Vázquez FERNIE MANUFACTURING TEST TECHNICIAN-FPA, FRE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-BC 10/02/2023 Last Documented On 4 10:10AM ; [facility] Cervicalgia PAIN MANAGEMENT FOLLOW UP with Jones Vázquez FERNIE MANUFACTURING TEST TECHNICIAN-FPA, FRE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-BC 10/02/2023 Last Documented On 4 10:10AM ; [facility] Chronic pain syndrome PAIN MANAGEMENT FO LLOW UP with ZULEIMA Vázquez FERNIE MANUFACTURING TEST TECHNICIAN-FPA, FRE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-BC 10/02/2023 Last Documented On 4 10:10AM ; [facility] Localized primary osteoarthr itis of right hip PAIN MANAGEMENT FOLLOW UP with ZULEIMA Vázquez FERNIE MANUFACTURING TEST TECHNICIAN-FPA, FRE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-BC 10/02/2023 Last Documented On 4 10:10AM ; [facility] Localized primary osteoarthr itis of right shoulder PAIN MANAGEMENT FOLLOW UP with ZULEIMA Vázquez FERNIE MANUFACTURING TEST TECHNICIAN-FPA, FRE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-BC 10/02/2023 Last Documented On 4 10:10AM ; [facility] Low back pain PAIN MANAGEMENT FOLL OW UP with ZULEIMA Vázquez FERNIE MANUFACTURING TEST TECHNICIAN-FPA, FRE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-BC 10/02/2023 Last Documented On 4 10:10AM ; [facility] Lumbar spondylosis PAIN MANAGEMENT FOLL OW UP with ZULEIMA Gurpreet FERNIE MANUFACTURING TEST TECHNICIAN-FPA, FRE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-BC 10/02/2023 Last Documented On 4 10:10AM ; [facility] Lumbar stenosis without neur ogenic claudication PAIN MANAGEMENT FOLLOW UP with ZULEIMA Gurpreet FERNIE MANUFACTURING TEST TECHNICIAN-FPA, FRE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-BC 10/02/2023 Last Documented On 4 10:10AM ; [facility] [F33.1 - Major depressive di sorder, recurrent, moderate] moderate recurrent major depression TELEHEALTH with ZULEIMA NERGOLP MANUFACTURING TEST TECHNICIAN-FPA, FRE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-BC 08/21/2023 Last Documented On 4 10:17AM ; [facility] [M54.81 - Occipital neuralgi a] occipital neuralgia TELEHEALTH with ZULEIMA Vázquez FERNIE MANUFACTURING TEST TECHNICIAN-FPA, FRE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-BC 08/21/2023 Last Documented On 4 10:17AM ; [facility] Arthralgia of right shoulder region TELE HEALTH with ZULEIMA Vázquez FERNIE MANUFACTURING TEST TECHNICIAN-FPA, FRE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-BC 08/21/2023 Last Documented On 4 10:17AM ; [facility] Cervical spondylosis TELEHEALTH with ZULEIMA Vázquez K ULP MANUFACTURING TEST TECHNICIAN-FPA, FRE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-BC 08/21/2023 Last Documented On 4 10:17AM ; [facility] Cervicalgia TELEHEALTH with ZULEIMA G FERNIE A PRN-FPA, FRE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-BC 08/21/2023 Last Documented On 4 10:17AM ; [facility] Chronic pain syndrome TELEHEALTH with ZULEIMA Vázquez FERNIE MANUFACTURING TEST TECHNICIAN-FPA, FRE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-BC 08/21/2023 Last Documented On 4 10:17AM ; [facility] Localized primary osteoarthr itis of right hip TELEHEALTH with ZULEIMA Vázquez FERNIE MANUFACTURING TEST TECHNICIAN-FPA, FRE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-BC 08/21/2023 Last Documented On 4 10:17AM ; [facility] Localized primary osteoarthr itis of right shoulder TELEHEALTH with ZULEIMA Gurpreet FERNIE MANUFACTURING TEST TECHNICIAN-FPA, FRE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-BC 08/21/2023 Last Documented On 4 10:17AM ; [facility] Low back pain TELEHEALTH with ZULEIMA Gurpreet FERNIE A PRN-FPA, FRE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-BC 08/21/2023 Last Documented On 4 10:17AM ; [facility] Lumbar spondylosis TELEHEALTH with ZULEIMA Gurpreet KUL P MANUFACTURING TEST TECHNICIAN-FPA, FRE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-BC 08/21/2023 Last Documented On 4 10:17AM ; [facility] Lumbar stenosis without neur ogenic claudication TELEHEALTH with ZULEIMA Vázquez FERNIE MANUFACTURING TEST TECHNICIAN-FPA, FRE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-BC 08/21/2023 Last Documented On 4 10:17AM ; [facility] [F33.1 - Major depressive di sorder, recurrent, moderate] moderate recurrent major depression PAIN MANAGEMENT FOLLOW UP with ZULEIMA Vázquez FERNIE MANUFACTURING TEST TECHNICIAN-FPA, FRE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-BC 08/04/2023 Last Documented On 4 9:52AM ; [facility] [M54.81 - Occipital neuralgi a] occipital neuralgia PAIN MANAGEMENT FOLLOW UP with ZULEIMA Vázquez FERNIE MANUFACTURING TEST TECHNICIAN-FPA, FRE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-BC 08/04/2023 Last Documented On 4 9:52AM ; [facility] Arthralgia of right shoulder region PAIN MANAGEMENT FOLLOW UP with ZULEIMA Vázquez FERNIE MANUFACTURING TEST TECHNICIAN-FPA, FRE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-BC 08/04/2023 Last Documented On 4 9:52AM ; [facility] Cervical spondylosis PAIN MANAGEMENT FOL LOW UP with ZULEIMA Vázquez FERNIE MANUFACTURING TEST TECHNICIAN-FPA, FRE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-BC 08/04/2023 Last Documented On 4 9:52AM ; [facility] Cervicalgia PAIN MANAGEMENT FOLLOW UP with Jones Vázquez FERNIE MANUFACTURING TEST TECHNICIAN-FPA, FRE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-BC 08/04/2023 Last Documented On 4 9:52AM ; [facility] Chronic pain syndrome PAIN MANAGEMENT FO LLOW UP with ZULEIMA Vázquez FERNIE MANUFACTURING TEST TECHNICIAN-FPA, FRE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-BC 08/04/2023 Last Documented On 4 9:52AM ; [facility] Localized primary osteoarthr itis of right hip PAIN MANAGEMENT FOLLOW UP with ZULEIMA Vázquez FERNIE MANUFACTURING TEST TECHNICIAN-FPA, FRE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-BC 08/04/2023 Last Documented On 4 9:52AM ; [facility] Localized primary osteoarthr itis of right shoulder PAIN MANAGEMENT FOLLOW UP with ZULEIMA Vázquez FERNIE MANUFACTURING TEST TECHNICIAN-FPA, FRE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-BC 08/04/2023 Last Documented On 4 9:52AM ; [facility] Low back pain PAIN MANAGEMENT FOLL OW UP with ZULEIMA NEGROLP MANUFACTURING TEST TECHNICIAN-FPA, FRE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-BC 08/04/2023 Last Documented On 4 9:52AM ; [facility] Lumbar spondylosis PAIN MANAGEMENT FOLL OW UP with ZULEIMA Gurpreet FERNIE MANUFACTURING TEST TECHNICIAN-FPA, FRE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-BC 08/04/2023 Last Documented On 4 9:52AM ; [facility] Lumbar stenosis without neur ogenic claudication PAIN MANAGEMENT FOLLOW UP with ZULEIMA G FERNIE MANUFACTURING TEST TECHNICIAN-FPA, FRE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-BC 08/04/2023 Last Documented On 4 9:52AM ; [facility] [F33.1 - Major depressive di sorder, recurrent, moderate] moderate recurrent major depression TELEHEALTH with ZULEIMA Vázquez FERNIE MANUFACTURING TEST TECHNICIAN-FPA, FRE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-BC 06/04/2023 Last Documented On 4 2:50PM ; [facility] Arthralgia of right shoulder region TELE HEALTH with ZULEIMA Vázquez FERNIE MANUFACTURING TEST TECHNICIAN-FPA, FRE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-BC 06/04/2023 Last Documented On 4 2:50PM ; [facility] Cervical spondylosis TELEHEALTH with ZULEIMA G K ULP MANUFACTURING TEST TECHNICIAN-FPA, FRE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-BC 06/04/2023 Last Documented On 4 2:50PM ; [facility] Cervicalgia TELEHEALTH with ZULEIMA G FERNIE A PRN-FPA, FRE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-BC 06/04/2023 Last Documented On 4 2:50PM ; [facility] Chronic pain syndrome TELEHEALTH with ZULEIMA G FERNIE MANUFACTURING TEST TECHNICIAN-FPA, FRE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-BC 06/04/2023 Last Documented On 4 2:50PM ; [facility] Localized primary osteoarthr itis of right hip TELEHEALTH with ZULEIMA G FERNIE MANUFACTURING TEST TECHNICIAN-FPA, FRE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-BC 06/04/2023 Last Documented On 4 2:50PM ; [facility] Localized primary osteoarthr itis of right shoulder TELEHEALTH with ZULEIMA Gurpreet FERNIE MANUFACTURING TEST TECHNICIAN-FPA, FRE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-BC 06/04/2023 Last Documented On 4 2:50PM ; [facility] Low back pain TELEHEALTH with ZULEIMA Grupreet FERNIE A PRN-FPA, FRE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-BC 06/04/2023 Last Documented On 4 2:50PM ; [facility] Lumbar spondylosis TELEHEALTH with ZULEIMA Vázquez SRUTHIL P MANUFACTURING TEST TECHNICIAN-FPA, FRE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-BC 06/04/2023 Last Documented On 4 2:50PM ; [facility] Arthralgia of right shoulder region PAIN MANAGEMENT FOLLOW UP with ZULEIMA Vázquez FERNIE MANUFACTURING TEST TECHNICIAN-FPA, FRE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-BC 03/10/2023 Last Documented On 3 12:39PM ; [facility] Cervical spondylosis PAIN MANAGEMENT FOL LOW UP with ZULEIMA Vázquez FERNIE MANUFACTURING TEST TECHNICIAN-FPA, FRE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-BC 03/10/2023 Last Documented On 3 12:39PM ; [facility] Cervicalgia PAIN MANAGEMENT FOLLOW UP with Jnoes Vázquez FERNIE MANUFACTURING TEST TECHNICIAN-FPA, FRE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-BC 03/10/2023 Last Documented On 3 12:39PM ; [facility] Chronic pain syndrome PAIN MANAGEMENT FO LLOW UP with ZULEIMA Vázquez FERNIE MANUFACTURING TEST TECHNICIAN-FPA, FRE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-BC 03/10/2023 Last Documented On 3 12:39PM ; [facility] Localized primary osteoarthr itis of right hip PAIN MANAGEMENT FOLLOW UP with UZLEIMA Vázquez FERNIE MANUFACTURING TEST TECHNICIAN-FPA, FRE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-BC 03/10/2023 Last Documented On 3 12:39PM ; [facility] Localized primary osteoarthr itis of right shoulder PAIN MANAGEMENT FOLLOW UP with ZULEIMA Vázquez FERNIE MANUFACTURING TEST TECHNICIAN-FPA, FRE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-BC 03/10/2023 Last Documented On 3 12:39PM ; [facility] Low back pain PAIN MANAGEMENT FOLL OW UP with ZULEIMA Vázquez FERNIE MANUFACTURING TEST TECHNICIAN-FPA, FRE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-BC 03/10/2023 Last Documented On 3 12:39PM ; [facility] Lumbar spondylosis PAIN MANAGEMENT FOLL OW UP with ZULEIMA Vázquez FERNIE MANUFACTURING TEST TECHNICIAN-FPA, FRE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-BC 03/10/2023 Last Documented On 3 12:39PM ; [facility] Arthralgia of right shoulder region TELE HEALTH with ZULEIMA Vázquez FERNIE MANUFACTURING TEST TECHNICIAN-FPA, FRE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-BC 12/30/2022 Last Documented On 3 1:22PM ; [facility] Cervical spondylosis TELEHEALTH with ZULEIMA Vázquez K ULP MANUFACTURING TEST TECHNICIAN-FPA, FRE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-BC 12/30/2022 Last Documented On 3 1:22PM ; [facility] Cervicalgia TELEHEALTH with ZULEIMA Vázquez FERNIE A PRN-FPA, FRE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-BC 12/30/2022 Last Documented On 3 1:22PM ; [facility] Chronic pain syndrome TELEHEALTH with ZULEIMA Vázquez FERNIE MANUFACTURING TEST TECHNICIAN-FPA, FRE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-BC 12/30/2022 Last Documented On 3 1:22PM ; [facility] Localized primary osteoarthr itis of right hip TELEHEALTH with ZULEIMA Vázquez FERNIE MANUFACTURING TEST TECHNICIAN-FPA, FRE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-BC 12/30/2022 Last Documented On 3 1:22PM ; [facility] Localized primary osteoarthr itis of right shoulder TELEHEALTH with ZULEIMA Vázquez FERNIE MANUFACTURING TEST TECHNICIAN-FPA, FRE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-BC 12/30/2022 Last Documented On 3 1:22PM ; [facility] Low back pain TELEHEALTH with ZULEIMA Vázquez FERNIE A PRN-FPA, FRE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-BC 12/30/2022 Last Documented On 3 1:22PM ; [facility] Lumbar spondylosis TELEHEALTH with ZULEIMA Vázquez KUL P MANUFACTURING TEST TECHNICIAN-FPA, FRE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-BC 12/30/2022 Last Documented On 3 1:22PM ; [facility] Arthralgia of right shoulder region PAIN MANAGEMENT FOLLOW UP with ZULEIMA Vázquez FERNIE MANUFACTURING TEST TECHNICIAN-FPA, FRE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-BC 11/29/2022 Last Documented On 3 12:01PM ; [facility] Cervical spondylosis PAIN MANAGEMENT FOL LOW UP with ZULEIMA Vázquez FERNIE MANUFACTURING TEST TECHNICIAN-FPA, FRE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-BC 11/29/2022 Last Documented On 3 12:01PM ; [facility] Cervicalgia PAIN MANAGEMENT FOLLOW UP with Jones Vázquez FERNIE MANUFACTURING TEST TECHNICIAN-FPA, FRE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-BC 11/29/2022 Last Documented On 3 12:01PM ; [facility] Chronic pain syndrome PAIN MANAGEMENT FO LLOW UP with ZULEIMA Vázquez FERNIE MANUFACTURING TEST TECHNICIAN-FPA, FRE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-BC 11/29/2022 Last Documented On 3 12:01PM ; [facility] Localized primary osteoarthr itis of right hip PAIN MANAGEMENT FOLLOW UP with ZULEIMA Vázquez FERNIE MANUFACTURING TEST TECHNICIAN-FPA, FRE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-BC 11/29/2022 Last Documented On 3 12:01PM ; [facility] Localized primary osteoarthr itis of right shoulder PAIN MANAGEMENT FOLLOW UP with ZULEIMA Vázquez FERNIE MANUFACTURING TEST TECHNICIAN-FPA, FRE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-BC 11/29/2022 Last Documented On 3 12:01PM ; [facility] Low back pain PAIN MANAGEMENT FOLL OW UP with ZULEIMA Vázquez FERNIE MANUFACTURING TEST TECHNICIAN-FPA, FRE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-BC 11/29/2022 Last Documented On 3 12:01PM ; [facility] Lumbar spondylosis PAIN MANAGEMENT FOLL OW UP with ZULEIMA Gurpreet FERNIE MANUFACTURING TEST TECHNICIAN-FPA, FRE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-BC 11/29/2022 Last Documented On 3 12:01PM ; [facility] Arthralgia of right shoulder region PAIN MANAGEMENT FOLLOW UP with ZULEIMA Vázquez FERNIE MANUFACTURING TEST TECHNICIAN-FPA, FRE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-BC 10/28/2022 Last Documented On 3 5:29PM ; [facility] Cervical spondylosis PAIN MANAGEMENT FOL LOW UP with ZULEIMA Gurpreet FERNIE MANUFACTURING TEST TECHNICIAN-FPA, FRE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-BC 10/28/2022 Last Documented On 3 5:29PM ; [facility] Cervicalgia PAIN MANAGEMENT FOLLOW UP with Jones Vázquez FERNIE MANUFACTURING TEST TECHNICIAN-FPA, FRE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-BC 10/28/2022 Last Documented On 3 5:29PM ; [facility] Chronic pain syndrome PAIN MANAGEMENT FO LLOW UP with ZULEIMA Vázquez FERNIE MANUFACTURING TEST TECHNICIAN-FPA, FRE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-BC 10/28/2022 Last Documented On 3 5:29PM ; [facility] Localized primary osteoarthr itis of right hip PAIN MANAGEMENT FOLLOW UP with ZULEIMA Vázquez FERNEI MANUFACTURING TEST TECHNICIAN-FPA, FRE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-BC 10/28/2022 Last Documented On 3 5:29PM ; [facility] Localized primary osteoarthr itis of right shoulder PAIN MANAGEMENT FOLLOW UP with ZULEIMA Vázquez FERNIE MANUFACTURING TEST TECHNICIAN-FPA, FRE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-BC 10/28/2022 Last Documented On 3 5:29PM ; [facility] Low back pain PAIN MANAGEMENT FOLL OW UP with ZULEIMA Vázquez FERNIE MANUFACTURING TEST TECHNICIAN-FPA, FRE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-BC 10/28/2022 Last Documented On 3 5:29PM ; [facility] Lumbar spondylosis PAIN MANAGEMENT FOLL OW UP with ZULEIMA Vázquez FERNIE MANUFACTURING TEST TECHNICIAN-FPA, FRE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-BC 10/28/2022 Last Documented On 3 5:29PM ; [facility] Arthralgia of right shoulder region PAIN MANAGEMENT NEW CONSULT with ZULEIMA Vázquez FERNIE MANUFACTURING TEST TECHNICIAN-FPA, FRE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-BC 09/09/2022 Last Documented On 3 12:51PM ; [facility] Cervical spondylosis PAIN MANAGEMENT NEW CONSULT with ZULEIMA Vázquez FERNIE MANUFACTURING TEST TECHNICIAN-FPA, FRE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-BC 09/09/2022 Last Documented On 3 12:51PM ; [facility] Cervicalgia PAIN MANAGEMENT NEW CONSULT with ZULEIMA Vázquez FERNIE MANUFACTURING TEST TECHNICIAN-FPA, FRE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-BC 09/09/2022 Last Documented On 3 12:51PM ; [facility] Chronic pain syndrome PAIN MANAGEMENT NE W CONSULT with ZULEIMA Vázquez FERNIE MANUFACTURING TEST TECHNICIAN-FPA, FRE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-BC 09/09/2022 Last Documented On 3 12:51PM ; [facility] Localized primary osteoarthr itis of right hip PAIN MANAGEMENT NEW CONSULT with ZULEIMA Vázquez FRENIE MANUFACTURING TEST TECHNICIAN-FPA, 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-BC 09/09/2022 Last Documented On 3 12:51PM ; [facility] Localized primary osteoarthr itis of right shoulder PAIN MANAGEMENT NEW CONSULT with ZULEIMA Vázquez FERNIE MANUFACTURING TEST TECHNICIAN-FPA, 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-BC 09/09/2022 Last Documented On 3 12:51PM ; [facility] Low back pain PAIN MANAGEMENT NEW CONSULT with ZULEIMA Vázquez FERNIE MANUFACTURING TEST TECHNICIAN-FPA, 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-BC 09/09/2022 Last Documented On 3 12:51PM ; [facility] Lumbar spondylosis PAIN MANAGEMENT NEW CONSULT with ZULEIMA CARRILLO MANUFACTURING TEST TECHNICIAN-FPA, 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-BC 09/09/2022 Last Documented On 3 12:51PM ; [facility] Cervical spondylosis without myelopathy or radiculopathy PAIN MANAGEMENT FOLLOW UP with KATIE L JOLENE ANP-BC 04/05/2020 Last Documented On 0 12:59PM ; [facility] Chronic pain syndrome PAIN MANAGEMENT FO LLOW UP with KATIE L JOLENE ANP-BC 04/05/2020 Last Documented On 0 12:59PM ; [facility] 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 PAIN M ANAGEMENT FOLLOW UP with KATIE L JOLENE ANP-BC 04/05/2020 Last Documented On 0 12:59PM ; [facility] Lumbar spondylosis without m yelopathy or radiculopathy PAIN MANAGEMENT FOLLOW UP with KATIE L JOLENE ANP-BC 04/05/2020 Last Documented On 0 12:59PM ; [facility] Sacroiliitis PAIN MANAGEMENT FOLLOW UP with T TAMIE L JOLENE ANP-BC 04/05/2020 Last Documented On 0 12:59PM ; [facility] Cervical spondylosis without myelopathy or radiculopathy PAIN MANAGEMENT FOLLOW UP with KATIE L JOLENE ANP-BC 03/02/2020 Last Documented On 0 2:44PM ; [facility] Chronic pain syndrome PAIN MANAGEMENT FO LLOW UP with KATIE L JOLENE ANP-BC 03/02/2020 Last Documented On 0 2:44PM ; [facility] 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 PAIN M ANAGEMENT FOLLOW UP with KATIE L JOLENE ANP-BC 03/02/2020 Last Documented On 0 2:44PM ; [facility] Lumbar spondylosis without m yelopathy or radiculopathy PAIN MANAGEMENT FOLLOW UP with KATIE L JOLENE ANP-BC 03/02/2020 Last Documented On 0 2:44PM ; [facility] Sacroiliitis PAIN MANAGEMENT FOLLOW UP with T TAMIE L JOLENE ANP-BC 03/02/2020 Last Documented On 0 2:44PM ; [facility] Cervical spondylosis without myelopathy or radiculopathy PAIN MANAGEMENT NEW CONSULT with KATIE FERNÁNDEZ [facility] 02/01/2020 Last Documented On 0 4:04PM ; [facility] Chronic pain syndrome PAIN MANAGEMENT NE W CONSULT with KATIEWILTON FERNÁNDEZ [facility] 02/01/2020 Last Documented On 0 4:04PM ; [facility] halfway use of opiate analgesic PAIN M ANAGEMENT NEW CONSULT with KATIEWILTON FERNÁNDEZ [facility] 02/01/2020 Last Documented On 0 4:04PM ; [facility] Lumbar spondylosis without m yelopathy or radiculopathy PAIN MANAGEMENT NEW CONSULT with KATIEWILTON FERNÁNDEZ [facility] 02/01/2020 Last Documented On 0 4:04PM ; [facility] Sacroiliitis PAIN MANAGEMENT NEW CONSULT with KATIEWILTON FERNÁNDEZ [facility] 02/01/2020 Last Documented On 0 4:04PM ; [facility] Instructions Includes: Instructions for all patient encounters Instructions to patient Intervention and counseling on cessation of tobacco use : Patient recieved smoking cessation handout Last Documented On 4 9:47AM ; [facility] Intervention and counseling on cessation of tobacco use : Patient recieved smoking cessation handout Last Documented On 4 9:52AM ; [facility] Intervention and counseling on cessation of tobacco use : Patient recieved smoking cessation handout Last Documented On 4 8:47AM ; [facility] Intervention and counseling on cessation of tobacco use : Patient recieved smoking cessation handout Last Documented On 4 1:04PM ; [facility] Intervention and counseling on cessation of tobacco use : Patient recieved smoking cessation handout Last Documented On 3 9:45AM ; [facility] Intervention and counseling on cessation of tobacco use : Patient recieved smoking cessation handout Last Documented On 3 10:01AM ; [facility] Intervention and counseling on cessation of tobacco use : Patient recieved smoking cessation handout Last Documented On 3 11:24AM ; [facility] Intervention and counseling on cessation of tobacco use : Patient recieved smoking cessation handout Last Documented On 3 8:34AM ; [facility] Education and Decision Aids were provided during visit for: Pill Count: 0 Xtampza [state s he was sick for 2 weeks and wasn't taking it: last dose yesterday morning] Last Documented On 4 10:33AM ; [facility] Pill Count: six Xtampza Last Documented On 4 9:55AM ; [facility] Pill Count: 28 Hydrocodone Last Documented On 4 9:24AM ; [facility] Pill Count: 0 Buprenorphine : Last Documented On 4 1:13PM ; [facility] Pill Count: Buprenorphine : placed last patch 1 week ago Last Documented On 3 9:45AM ; [facility] Pill Count: Buprenorphine : placed last patch 1 week ago Last Documented On 3 10:11AM ; [facility] Pill Count: Buprenorphine Last Documented On 3 11:25AM ; [facility] Pill Count: Buprenorphine Last Documented On 3 11:25AM ; [facility] Pill Count: three Hydrocodon e [diposed today] Last Documented On 3 9:37AM ; [facility] Pill Count: 44 Appropriate Last Documented On 0 12:56PM ; [facility] Medical Equipment - Implanted Devices Includes: Current and historical Devices No Medical Equipment Recorded Medications Includes: Current and historical Medications Current Medications (continue as prescribed) oxyCODONE-Acetaminophen 7.5- 325 MG Oral Tablet 11/05/2023 Provider: NANI MAI Diagnosis: One tablet three times a day as needed for severe pain every 6-8 hours Last Documented On 4 11:14AM By ZULEIMA CARDOZA ; [facility] tiZANidine HCl 2 MG Oral Tablet 10/02/2023 Provider: NANI MAI Diagnosis: Other spondylosi s, lumbar region take 1-2 three times daily a s needed for muscle spasm Last Documented On 4 10:35AM By ZULEIMA CARDOZA ; [facility] Gabapentin 300 MG Oral Capsule 10/02/2023 Provider: NANI MAI Diagnosis: Spinal stenosis, lumbar region without neurogenic gini 1 capsule three times a day Last Documented On 4 10:35AM By ZULEIMA CARDOZA ; [facility] Xtampza ER 18 MG Oral Capsul e ER 12 Hour Abuse-Deterrent 10/02/2023 Provider: SOCO CASTROMAIRA Diagnosis: Spinal stenosis, lumbar region without neurogenic gini One tablet twice a day with food and water Last Documented On 4 10:35AM By ZULEIMA CARDOZA ; [facility] Narcan 4 MG/0.1ML Nasal Liquid 08/04/2023 Provider: NANI GRAFF Diagnosis: Spinal stenosis, lumbar region without neurogenic gini 1 spray intranasally for anthony pected overdose Last Documented On 4 10:04AM By ZULEIMA CARDOZA ; [facility] Lidocaine 5% External Patch 03/02/2023 Provider: NANI MAI Diagnosis: Primary osteoart hritis, right shoulder apply up to 3 patches daily to area of pain to R shoulder, neck, or low back and then remove for 12 hours Last Documented On 3 12:38PM By ZULEIMA CARDOZA ; [facility] Brian-Citrate Plus Vitamin D 250-2.5 MG-MCG Oral Tablet 11/29/2022 Provider: Diagnosis: Last Documented On 3 11:46AM By ZULEIMA CARDOZA ; [facility] Aspir-Low 81 MG Oral Tablet Delayed Release 09/09/2022 Provider: Diagnosis: Last Documented On 3 12:36PM By ZULEIMA CARDOZA ; [facility] Metoprolol Succinate ER 50 M G Oral Tablet Extended Release 24 Hour 09/05/2022 Provider: PRADEEP Lewis MD Diagnosis: Last Documented On 3 12:36PM By ZULEIMA CARDOZA ; [facility] Isosorbide Mononitrate ER 30 MG Oral Tablet Extended Release 24 Hour 07/04/2022 Provider: KWASI Carlton Diagnosis: Last Documented On 3 12:36PM By ZULEIMA CARDOZA ; [facility] Atorvastatin Calcium 40 MG Oral Tablet 07/04/2022 Pr ovider: KWASI OTERO MD Diagnosis: Last Documented On 3 12:36PM By ZULEIMA CARDOZA ; [facility] Nitroglycerin 0.4 MG Subling ual Tablet Sublingual 01/29/2022 Provider: KWASI OTERO MD Diagnosis: As needed. Last Documented On 3 12:36PM By ZULEIMA CARDOZA ; [facility] Past Medications on file Gabapentin 300 MG Oral Capsule 08/21/2023 - 10/02/2023 Provider: NANI GRAFF Diagnosis: Spinal stenosis, lumbar region without neurogenic gini 1 capsule three times a day Last Documented On 4 10:31AM By ZULEIMA CARDOZA ; [facility] Xtampza ER 18 MG Oral Capsule ER 12 Hour Abuse-Deterrent 08/21/2023 - 10/02/2023 Provider: NANI GRAFF Diagnosis: Spinal stenosis, lumbar region without neurogenic gini One tablet twice a day with food and water Last Documented On 4 10:31AM By ZULEIMA CARDOZA ; [facility] tiZANidine HCl 2 MG Oral Tablet 08/21/2023 - 10/02/2023 Provider: NANI GRAFF Diagnosis: Other spondylosi s, lumbar region take 1-2 three times daily a s needed for muscle spasm Last Documented On 4 10:31AM By ZULEIMA CARDOZA ; [facility] Xtampza ER 18 MG Oral Capsule ER 12 Hour Abuse-Deterrent 08/04/2023 - 08/21/2023 Provider: NANI GRAFF Diagnosis: Spinal stenosis, lumbar region without neurogenic gini One tablet twice a day with food and water Last Documented On 4 10:11AM By ZULEIMA CARDZOA ; [facility] tiZANidine HCl 2 MG Oral Tablet 08/04/2023 - 08/21/2023 Provider: NANI GRAFF Diagnosis: Other spondylosi s, lumbar region take 1-2 three times daily a s needed for muscle spasm Last Documented On 4 10:10AM By ZULEIMA CARDOZA ; [facility] Xtampza ER 18 MG Oral Capsule ER 12 Hour Abuse-Deterrent 08/04/2023 - 08/04/2023 Provider: NANI GRAFF Diagnosis: Spinal stenosis, lumbar region without neurogenic gini One tablet twice a day with food and water Last Documented On 4 2:34PM By ZULEIMA CARDOZA ; [facility] Gabapentin 100 MG Oral Capsule 07/29/2023 - 10/02/2023 Provider: MAYCO HYLTON MD Diagnosis: Last Documented On 4 10:02AM By [employer] ; [facility] HYDROcodone-Acetaminophen 7. 5-325 MG Oral Tablet 07/16/2023 - 08/21/2023 Provider: NANI GRAFF Diagnosis: Other spondylosis, cervical region One tablet three times a day as needed for severe pain Last Documented On 4 9:59AM By ZULEIMA CARDOZA ; [facility] buPROPion HCl ER (SR) 100 MG Oral Tablet Extended Release 12 Hour 06/17/2023 - 08/04/2023 Provider: ZULEIMA CARRILLO A NANI CONTRERAS Diagnosis: One tablet daily Last Documented On 4 9:07AM By ZULEIMA CARDOZA ; [facility] HYDROcodone-Acetaminophen 7. 5-325 MG Oral Tablet 06/12/2023 - 07/16/2023 Provider: NANI GRAFF Diagnosis: Other spondylosis, cervical region One tablet three times a day as needed for severe pain Last Documented On 4 11:46AM By ZULEIMA CARDOZA ; [facility] DULoxetine HCl 60 MG Oral Capsule Delayed Release Particles 06/04/2023 - 06/17/2023 Provider: NANI GRAFF Diagnosis: Major depressive disorder, recurrent, moderate 1 capsule daily at bedtime Last Documented On 4 12:10PM By ZULEIMA CARDOZA ; [facility] DULoxetine HCl 30 MG Oral Capsule Delayed Release Particles 06/04/2023 - 06/17/2023 Provider: NANI GRAFF Diagnosis: Major depressive disorder, recurrent, moderate take 1 capsule at bedtime fo r 1 week then increase to 60mg dose Last Documented On 4 12:10PM By ZULEIMA CARDOZA ; [facility] HYDROcodone-Acetaminophen 7. 5-325 MG Oral Tablet 06/04/2023 - 06/11/2023 Provider: NANI GRAFF Diagnosis: Other spondylosis, cervical region One tablet three times a day as needed for severe pain Last Documented On 4 10:28AM By ZULEIMA CARDOZA ; [facility] DULoxetine HCl 20 MG Oral Ca psule Delayed Release Particles 06/03/2023 - 08/04/2023 Provider: KWASI MASSEY MD Diagnosis: Last Documented On 4 9:07AM By ZULEIMA CARDOZA ; [facility] Butrans 10 MCG/HR Transdermal Patch Weekly 03/31/2023 - 06/04/2023 Provider: NANI GRAFF Diagnosis: Chronic pain syndrome apply 1 patch for 7 days and remove before applying new patch Last Documented On 4 1:34PM By ZULEIMA CARDOZA ; [facility] Butrans 10 MCG/HR Transdermal Patch Weekly 03/02/2023 - 03/31/2023 Provider: NANI GRAFF Diagnosis: Chronic pain syndrome apply 1 patch for 7 days and remove before applying new patch Last Documented On 3 3:32PM By ZULEIMA CARDOZA ; [facility] Butrans 10 MCG/HR Transdermal Patch Weekly 01/31/2023 - 02/28/2023 Provider: NANI GRAFF Diagnosis: Chronic pain syndrome apply 1 patch for 7 days and remove before applying new patch Last Documented On 3 5:36PM By ZULEIMA CARDOZA ; [facility] Butrans 10 MCG/HR Transdermal Patch Weekly 01/02/2023 - 01/31/2023 Provider: NANI GRAFF Diagnosis: Chronic pain syndrome apply 1 patch for 7 days and remove before applying new patch Last Documented On 3 2:55PM By ZULEIMA CARDOZA ; [facility] Butrans 10 MCG/HR Transdermal Patch Weekly 12/31/2022 - 01/02/2023 Provider: NANI GRAFF Diagnosis: Chronic pain syndrome apply 1 patch for 7 days and remove before applying new patch Last Documented On 3 1:21PM By ZULEIMA CARDOZA ; [facility] Butrans 10 MCG/HR Transdermal Patch Weekly 11/29/2022 - 12/30/2022 Provider: NANI GRAFF Diagnosis: Chronic pain syndrome apply 1 patch for 7 days and remove before applying new patch Last Documented On 3 9:25AM By ZULEIMA CARDOZA ; [facility] Lidocaine 5% External Patch 11/29/2022 - 03/02/2023 Provider: NANI GRAFF Diagnosis: Primary osteoarthritis, right shoulder No Sig Selected apply up to 3 patches daily to area of pain to R shoulder, neck, or low back and then remove for 12 hours Last Documented On 3 5:58PM By ZULEIMA CARDOZA ; [facility] Narcan 4 MG/0.1ML Nasal Liquid 10/28/2022 - 08/04/2023 Provider: NANI GRAFF Diagnosis: Chronic pain syndrome 1 spray intranasally for suspected overdose Last Documented On 4 9:51AM By [facility] ; [facility] Butrans 5 MCG/HR Transdermal Patch Weekly 10/28/2022 - 11/29/2022 Provider: NANI GRAFF Diagnosis: Chronic pain syndrome apply 1 patch per week Last Documented On 3 12:02PM By ZULEIMA CARDOZA ; [facility] Ciprofloxacin HCl 500 MG Oral Tablet 10/15/2022 - 10/17 Provider: Diagnosis: Last Documented On 3 9:11AM By ZULEIMA CARDOZA ; [facility] metroNIDAZOLE 500 MG Oral Tablet 10/15/2022 - 10/29/19 Provider: Diagnosis: Last Documented On 3 9:12AM By ZULEIMA CARDOZA ; [facility] Lidocaine 5% External Patch 09/09/2022 - 11/29/2022 Provider: ZULEIMA GARAY 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 Diagnosis: Primary osteoarthritis, right shoulder No Sig Selected apply up to 3 patches daily to area of pain to R shoulder, neck, or low back and then remove for 12 hours Last Documented On 3 11:44AM By ZULEIMA CARRILLO 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MAIRA ; [facility] HYDROcodone-Acetaminophen 5- 325 MG Oral Tablet 09/09/2022 - 10/28/2022 Provider: NANI GRAFF Diagnosis: Cervicalgia One tablet twice a day as needed for severe pain Last Documented On 3 8:54AM By [employer] ; [facility] Lidocaine 5% External Patch 07/30/2022 - 09/09/2022 Pr ovider: Diagnosis: Last Documented On 3 12:36PM By ZULEIMA CARDOAZ ; [facility] HYDROcodone-Acetaminophen 10 -325 MG Oral Tablet 06/13/2020 - 09/09/2022 Provider: KATIE FERNÁNDEZ [facility] 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, cervical region 1 every 6 hours as needed Last Documented On 3 10:08AM By [employer] ; [facility] HYDROcodone-Acetaminophen 10 -325 MG Oral Tablet 05/29/2020 - 06/13/2020 Provider: KATIE MCDANIEL 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, cervical region 1 every 6 hours as needed Last Documented On 1 4:56PM By KATIE MCDANIEL ; [facility] Celecoxib 100 MG Oral Capsule 05/29/2020 - 09/09/2022 Provider: KATIE MCDANIEL 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, lumbar region 1 CAPSULE TWO TIMES A DAY Last Documented On 3 10:07AM By [employer] ; [facility] HYDROcodone-Acetaminophen 10 -325 MG Oral Tablet 05/10/2020 - 05/29/2020 Provider: ENE LARA MD 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, cervical region 1 every 6 hours as neededok to fill Last Documented On 1 5:34PM By KATIE MCDANIEL ; [facility] HYDROcodone-Acetaminophen 10 -325 MG Oral Tablet 05/01/2020 - 04/28/2020 Provider: KATIE MCDANIEL 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, cervical region 1 every 6 hours as neededto fill 05/03 Last Documented On 0 11:31AM By KATIE MCDANIEL ; [facility] HYDROcodone-Acetaminophen 10 -325 MG Oral Tablet 05/01/2020 - 05/10/2020 Provider: KATIE MCDANIEL 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, cervical region 1 every 6 hours as neededok to fill Last Documented On 05/10/2020 5:03PM By Ene Lara MD ; [facility] HYDROcodone-Acetaminophen 10 -325 MG Oral Tablet 04/12/2020 - 04/28/2020 Provider: KATIE MCDANIEL 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, cervical region 1 every 6 hours as neededto fill 04/15 Last Documented On 0 10:51AM By KATIE MCDANIEL ; [facility] HYDROcodone-Acetaminophen 10 -325 MG Oral Tablet 03/30/2020 - 04/12/2020 Provider: KATIE MCDANIEL 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, cervical region 1 every 6 hours as neededto fill 04/01/20 Last Documented On 0 3:55PM By KATIE MCDANIEL ; [facility] Celecoxib 100 MG Oral Capsule 03/20/2020 - 05/29/2020 Provider: KATIE MCDANIEL 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, lumbar region 1 CAPSULE TWO TIMES A DAY Last Documented On 1 5:36PM By KATIE MCDANIEL ; [facility] HYDROcodone-Acetaminophen 10 -325 MG Oral Tablet 03/15/2020 - 03/30/2020 Provider: KATIE MCDANIEL 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, cervical region 1 every 6 hours as neededto fill 03/17/20 Last Documented On 0 2:45PM By KATIE MCDANIEL ; [facility] Celecoxib 100 MG Oral Capsule 03/02/2020 - 03/20/2020 Provider: KATIE MCDANIEL 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, lumbar region 1 CAPSULE TWO TIMES A DAY Last Documented On 0 9:45AM By KATIE MCDANIEL ; [facility] HYDROcodone-Acetaminophen 10 -325 MG Oral Tablet 03/02/2020 - 03/15/2020 Provider: KATIE MCDANIEL 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, cervical region 1 every 6 hours as needed Last Documented On 0 4:31PM By KATIE MCDANIEL ; [facility] HYDROcodone-Acetaminophen 10-325 MG Oral Tablet 02/01/2020 - 03/02/2020 Provider: Diagnosis: Last Documented On 0 2:43PM By KATIE MCDANIEL ; [facility] Cyclobenzaprine HCl 10 MG Oral Tablet 02/01/2020 - Provider: Diagnosis: Last Documented On 3 10:08AM By [employer] ; [facility] Pravastatin Sodium 10 MG Oral Tablet 02/01/2020 - 08/18 Provider: Diagnosis: Last Documented On 3 10:08AM By [employer] ; [facility] Celecoxib 100 MG Oral Capsule 02/01/2020 - 03/02/2020 Provider: KATIE MCDANIEL 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, lumbar region 1 CAPSULE TWO TIMES A DAY Last Documented On 0 10:36AM By KATIE MCDANIEL ; [facility] Atenolol 50 MG Oral Tablet 02/01/2020 - 09/09/2022 Pro vider: Diagnosis: Last Documented On 3 10:07AM By [employer] ; [facility] Medications Administered Includes: Administered Medications in patient's chart No Administered Medications Recorded Vital Signs Includes: Vital Signs from 08/04/2023 through 08/03/2024 Vital Name 10/02/2023 10:05A 08/21/2023 09:55A 08/03 08:58A Blood Pressure Sitting R 138/82 146/98 BP Cuff Size Regular Regular Pulse Rate-Sitting (bpm) 66 74 Temp-Oral (F) 96.2 98 Height (in) 67 67 67 Weight (lb) 235 245 245 Body Mass Index 36.8 38.4 38.4 Body Surface Area 2.2 2.2 2.2 Pain Level 7 5 8 Oxygen Saturation (%) 96 98 Temp-Temporal 96.7 Last Documented: On 10/02/2023 10:07A M ; [facility] On 08/21/2023 9:57AM ; [facility] On 08/04/2023 9:00AM ; [facility] Results Includes: Results from 08/04/2023 through 08/03/2024 DRUG MONITORING, PANEL 6 WITH CONFIRMATI ON, URINE UB [employer] Ordered by ZULEIMA CARRILLO MANUFACTURING TEST TECHNICIAN-FPA, 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- BC on 10/02/2023 Collected: 10/02/2023 Reported: 10/04/19 24 22:50 Last Documented On 4 8:30AM ; [facility] Reviewed by ZULEIMA CONTRERAS, 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-BC on 10/06/2023; All test results are final unless otherwise noted. Amphetamines NEGATIVE ng/mL (<500) None Last Documented On 4 11:37PM ; [facility] Barbiturates NEGATIVE ng/mL (<300) None Last Documented On 4 11:37PM ; [facility] Benzodiazepines NEGATIVE ng/mL (<100) None Last Documented On 4 11:37PM ; [facility] Marijuana Metabolite POSITIVE ng/mL (<20) A (Abnormal) Last Documented On 4 11:37PM ; [facility] Marijuana Metabolite 767 ng/mL (<5) H (High) Last Documented On 4 11:37PM ; [facility] medMATCH Marijuana Metab INCONSISTENT A (Abnormal) Last Documented On 4 11:37PM ; [facility] Cocaine Metabolite NEGATIVE ng/mL (<150) None Last Documented On 4 11:37PM ; [facility] Methadone Metabolite NEGATIVE ng/mL (<100) None Last Documented On 4 11:37PM ; [facility] Opiates NEGATIVE CONFIRMED ng/mL (<100) None Last Documented On 4 11:37PM ; [facility] Codeine NEGATIVE ng/mL (<50) None Last Documented On 4 11:37PM ; [facility] Morphine NEGATIVE ng/mL (<50) None Last Documented On 4 11:37PM ; [facility] Hydrocodone NEGATIVE ng/mL (<50) None Last Documented On 4 11:37PM ; [facility] Hydromorphone NEGATIVE ng/mL (<50) None Last Documented On 4 11:37PM ; [facility] Oxycodone POSITIVE ng/mL (<100) A (Abnormal) Last Documented On 4 11:37PM ; [facility] Oxycodone 847 ng/mL (<50) H (High) Last Documented On 4 11:37PM ; [facility] medMATCH Oxycodone CONSISTENT None Last Documented On 4 11:37PM ; [facility] Oxymorphone 3529 ng/mL (<50) H (High) Last Documented On 4 11:37PM ; [facility]MATCH Oxymorphone CONSISTENT None Last Documented On 4 11:37PM ; [facility] Phencyclidine NEGATIVE ng/mL (<25) None Last Documented On 4 11:37PM ; [facility] Alcohol Metabolites NEGATIVE ng/mL (<500) None Last Documented On 4 11:37PM ; [facility] 6 Acetylmorphine NEGATIVE ng/mL (<10) None Last Documented On 4 11:37PM ; [facility] pH 5.5 (4.5-9.0) None Last Documented On 4 11:37PM ; [facility] Creatinine 313.6 mg/dL (> or = 20.0) None Last Documented On 4 11:37PM ; [facility] Oxidant NEGATIVE mcg/mL (<200) None Last Documented On 4 11:37PM ; [facility] Norhydrocodone NEGATIVE ng/mL (<50) None Last Documented On 4 11:37PM ; [facility] Noroxycodone 1463 ng/mL (<50) H (High) Last Documented On 4 11:37PM ; [facility] medMATCH Noroxycodone CONSISTENT None Last Documented On 4 11:37PM ; [facility] Marijuana Comments See Note None Last Documented On 10/04/2023 11:37PM ; [facility] Note: See Marijuana Notes, LDT Notes Opiates Comments See Note None Last Documented On 10/04/2023 11:37PM ; [facility] Note: See LDT Notes Oxycodone Comments See Note None Last Documented On 10/04/2023 11:37PM ; [facility] Note: See Oxycodone Notes, LDT Notes DRUG MONITORING TEMPLATE [employer] Ordered by FATOUMATA GRAFF on 10/02/2023 Collected: 10/02/2023 Reported: 10/04/19 24 22:50 Last Documented On 4 8:30AM ; [facility] Reviewed by NANI JO on 10/06/2023; All test results are final unless otherwise noted. Notes and Comments See Note None Last Documented On 10/04/2023 11:37PM ; [facility] Note: This drug testing is for medical treatment only.Analysis was performed as non-forensic testing andthese results should be used only by healthcareproviders to render diagnosis or treatment, or tomonitor progress of medical conditions. Marijuana Notes:Marijuana Metabolite detected is consistent with exposure to Marijuana (THC) and/or hemp derived products. Some jurisdictions do not include hemp within the definition of Marijuana. Oxycodone Notes:Oxycodone, Noroxycodone, Oxymorphone detected is consistent with the use of the drug Oxycodone. Oxymorphone detected is consistent with the use of the drug Oxymorphone. Oxymorphone can be a prescribed drug and is also a metabolite of Oxycodone. LDT Notes:Confirmation tests were developed and their analytical performance characteristics have been determined by [employer]. It has not been cleared or approved by the FDA. This assay has been validated pursuant to the CLIA regulations and is used for clinical purposes. medMATCH(R) enables providers to identify if drug useis consistent or inconsistent with a correspondingprescribed medication(s) list. Healthcare Providers needing Interpretation assistance, please contact us at [phone] ( ) M-F, 8am to 10pm EST PRESCRIBED DRUGS, medMATCH(R) [employer] Ordered by FATOUMATA GRAFF on 10/02/2023 Collected: 10/02/2023 Reported: 10/04/19 24 22:50 Last Documented On 4 8:30AM ; [facility] Reviewed by ZULEIMA SALGADON-FPAmada FRE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-BC on 10/06/2023; All test results are final unless otherwise noted. Prescribed Drug 6 Xtampza(TM) None Last Documented On 4 11:37PM ; [facility] medMATCH Summary See Note None Last Documented On 10/04/2023 11:37PM ; [facility] Note: Prescribed Prescribed Not Prescribed Consistent Inconsistent Inconsistent Xtampza(TM) Marijuana Metabolite Reported Physicians [facility] Ordered by ZULEIMA CARRILLO APRN-SOCO LOVING- BC on 10/02/2023 Collected: 10/02/2023 Reported: 10/04/19 24 23:52 Last Documented On 4 8:30AM ; [facility] Reviewed by ZULEIMA SALGADON-FPAmada FRE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-BC on 10/06/2023; All test results are final unless otherwise noted. Reported Physicians See Note None Last Documented On 10/04/2023 11:37PM ; [facility] Note: Reported Physicians:Ordering: Zuleima Carrillo History of Present Illness History of Present Illness not supported for this document type No History of Present Illness Recorded Social History Description Last Updated Tobacco non-user 03/10/2023 Last Documented On 3 12:39PM ; [facility] Chewing tobacco 09/09/2022 Last Documented On 3 12:51PM ; [facility] Difficulty walking 09/09/2022 Last Documented On 3 12:51PM ; [facility] No consumption of alcohol 09/09/2022 Last Documented On 3 12:51PM ; [facility] Not using drugs 09/09/2022 Last Documented On 3 12:51PM ; [facility] Non-smoker 02/01/2020 Last Documented On 0 4:04PM ; [facility] Smoking Status Unknown Procedures and Surgical History Includes: Procedures from 08/04/2023 through 08/03/2024 Procedures Code Diagnosis Performing Provider Service Location Service Date CLINIC VISIT T1015 Other spondylosi s, cervical region, Other spondylosis, lumbar region, Spinal stenosis, lumbar region without neurogenic gini, Cervicalgia ZULEIMA Vázquez FERNIE MANUFACTURING TEST TECHNICIAN-FPA, 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-[facility] 10/02/2023 Last Documented On 4 12:50PM ; [facility] CLINIC VISIT (VIA INTERACTIVE A&V TELECOMMUNICATION SYSTEMS) T1015 Other spondylosis, cervical region, Other spondylosis, lumbar region, Spinal stenosis, lumbar region without neurogenic gini, Primary osteoarthritis, right shoulder ZULEIMA Vázquez FERNIE MANUFACTURING TEST TECHNICIAN-FPA, [facility] 08/21/2023 Last Documented On 4 2:19PM ; [facility] CLINIC VISIT T1015 Spinal stenosis, lumbar region without neurogenic gini, Other spondylosis, cervical region, Other spondylosis, lumbar region, Chronic pain syndrome ZULEIMA Vázquez FERNIE MANUFACTURING TEST TECHNICIAN-FPAmada, F[employer]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-BC [facility] 08/04/2023 Last Documented On 4 3:02PM ; [facility] Surgical History Last Updated No Pacemaker 09/09/2022 Last Documented On 3 12:51PM ; [facility] Medical History Includes: Medical History in patient's chart Description Last Updated Chronic Hepatitis C w/ stage 1 Cirrhosis on BX ~BPH ~PVD ~IDALIA ~CAD ~Chronic Hip pain ~Chronic Flank Pain ~ ~Last Labs received 08/24/22: ~eGFR 78 ~Creatinine 1.09 ~AST 18 ~ALT 25 ~Alk Phos 66 ~Total Bili 1.1 ~Platelets 291 10/28/2022 Last Documented On 3 5:29PM ; [facility] History of hyperlipidemia 09/09/2022 Last Documented On 3 12:51PM ; [facility] History of systemic hypertension 023 Last Documented On 3 12:51PM ; [facility] Please list all surgeries: Hip replacmen t . 09/09/2022 Last Documented On 3 12:51PM ; [facility] Denies a fear of falling. 09/09/2022 Last Documented On 3 12:51PM ; [facility] Has had no fall in the last 12 months. 0 09/09/2022 Last Documented On 3 12:51PM ; [facility] Back brace 09/09/2022 Last Documented On 3 12:51PM ; [facility] CT/MRI Neck 10/0709/09/2022 Last Documented On 3 12:51PM ; [facility] Currently wearing eyeglasses 09/09/2022 Last Documented On 3 12:51PM ; [facility] Injection/Nerve blocks 09/09/2022 Last Documented On 3 12:51PM ; [facility] No Pain Pump 09/09/2022 Last Documented On 3 12:51PM ; [facility] No Spinal cord stimulator 09/09/2022 Last Documented On 3 12:51PM ; [facility] Pain Clinic 09/09/2022 Last Documented On 3 12:51PM ; [facility] Physical therapy 09/09/2022 Last Documented On 3 12:51PM ; [facility] Please list all illnesses/co nditions you have been diagnosed with: Microvascular disease 09/09/2022 Last Documented On 3 12:51PM ; [facility] Uses a cane for support 09/09/2022 Last Documented On 3 12:51PM ; [facility] X-rays Back shoulder neck hip 07/11 Last Documented On 3 12:51PM ; [facility] No previous psychiatric treatment 2019 Last Documented On 0 4:04PM ; [facility] Family History Includes: Family History in patient's chart Description Last Updated Fraternal history of family history of i schemic heart disease 09/09/2022 Last Documented On 3 12:51PM ; [facility] Maternal history of Arthritis 09/09/2022 Last Documented On 3 12:51PM ; [facility] Family history of cancer father 02/04/20 20 Last Documented On 0 4:04PM ; [facility] Family history of heart disease father 0 02/04/2020 Last Documented On 0 4:04PM ; [facility] Family medical history was unknown Yaoe r, rhuematoid arthritis 02/04/2020 Last Documented On 0 4:04PM ; [facility] Review of Systems Review of Systems not supported for this document type No Review of Systems Recorded Mental Status No Mental Status Recorded Functional Status No Functional Status Recorded Physical Exam Physical Exam not supported for this document type No Physical Exam Recorded Allergies Includes: Active, inactive, and resolved Allergies Substance Type Reaction Onset Date Resolved Date Statu s Stadol Allergy 09/09/2022 Active Last Documented On 4 9:55AM ; [facility] Encounters Includes: Encounters from 08/04/2023 through 08/03/2024 Encounter Provider Location Date Check-In Time Check-Out Time Diagnosis RX ISSUE/REFILL NANI GRAFF 11/05/19 24 10/02/2023 8:37AM 10/02/2023 11:59PM PAIN MANAGEMENT FOLLOW UP ZULEIMA GARAY F[employer]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-MAIR[facility] 10/02/19 9:32AM 10:34AM Cervical Spondylosis,Lupe mbar Spondylosis,Ch ronic Pain Syndrome,Cervi calgia,Neuralg ia Occipital,Meena r Depression Recurrent Moderate,Osteo arthritis Localized Primary Shoulder Right,Osteoart hritis Localized Primary Hip Right,Arthralg ia - Shoulder Region Right,Spinal Stenosis Lumbar Without Neurogenic Claudication,D orsopathy Low Back Pain * PHONE CALL NANI GRAFF 09/19/19 24 08/21/2023 3:15PM 08/21/2023 11:59PM TELEHEALTH SOCO GRAFF-MAIRA [facility] 08/21/19 9:52AM 10:05AM Cervical Spondylosis,Lupe mbar Spondylosis,Ch ronic Pain Syndrome,Cervi calgia,Neuralg ia Occipital,Meena r Depression Recurrent Moderate,Osteo arthritis Localized Primary Shoulder Right,Osteoart hritis Localized Primary Hip Right,Arthralg ia - Shoulder Region Right,Spinal Stenosis Lumbar Without Neurogenic Claudication,D orsopathy Low Back Pain * PHONE CALL ZULEIMA G NANI MARSHALL 08/04/19 2:00PM 11:59PM PAIN MANAGEMENT FOLLOW UP ZULEIMA Vázquez NANI MARSHALL [facility] 08/04/19 9:36AM 9:42AM Cervical Spondylosis,Lupe mbar Spondylosis,Ch ronic Pain Syndrome,Cervi calgia,Major Depression Recurrent Moderate,Osteo arthritis Localized Primary Shoulder Right,Osteoart hritis Localized Primary Hip Right,Arthralg ia - Shoulder Region Right,Dorsopat hy Low Back Pain,Spinal Stenosis Lumbar Without Neurogenic Claudication,N euralgia Occipital Insurance Includes: Active Insurance Policies Plan Name Member ID Group # Subscriber Relationship Effect arnold Dates 1 - [facility] [id number] PRADEEP ROSE Self Clinical Notes Includes: Signed Clinical Notes starting from 06/07/2022 * Progress note Date Encounter Last Documented by 11/05/2023 RX ISSUE/REFILL Last documented on 11/05/2023; 10:22 AM, ZULEIMA Vázquez NANI MARSHALL; [facility] Active Problems & Conditions - Chronic Low Back Pain - Coronary Artery Disease - Essential Hypertension - Gerd - Hyperlipidemia - Left Hip Pain - Nonorganic Sleep Apnea Obstructive - Obesity - Osteoarthritis Chief Complaint Phone Call - Chief Concern: Reason for call:RX REFILL Patient is requesting a refill on XTAMPZE ER 18 ~How is medication taken? BID ~How many are left?0 RAN OUT YESTERDAY REMINDED TO CALL IN ADVANCE FOR REFILLS Risk Assessment Score: LOW ~ILPMP:10/02/23 Last Office Visit: 10/02/23 ~ pt phone # for Return call: [phone] ~Last Drug Screen:10/02/23 ~Date/Initials: 11/05/23 CB. Current Medication - Aspir-Low 81 MG Oral Tablet Delayed Release 2 puffs four times a day 0 days, 0 refills - Atorvastatin Calcium 40 MG Oral Tablet One tablet daily 90 days, 0 refills - Brian-Citrate Plus Vitamin D 250-2.5 MG-MCG Oral Tablet One tablet daily 0 days, 0 refills - Gabapentin 300 MG Oral Capsule 1 capsule three times a day, 90 days, 0 refills - Isosorbide Mononitrate ER [...] times daily as needed for muscle spasm, 90 days, 0 refills - Xtampza ER 18 MG Oral Capsule ER 12 Hour Abuse-Deterrent One tablet twice a day with food and water, 30 days, 0 refills Past Medical/Surgical History Reported: [...] Fraternal: Ischemic heart disease Plan StartCited - Other PHY ORDER/COMMENT He should have been out on the which means he is not taking it as directed. With long acting medications you have to take them as directed and can not skip days or be off of it a few days and then just go back on the same dose. This is not safe. If he would prefer to take something as needed so he doesn't have to take it every day we can go back to IR medication. EndCited Care Team - KWASI OTERO MD - Primary Care Health Reminders - Assess Need for CT Lung Screen satisfied 11/05/2023. - Assess Tobacco Use satisfied 11/05/2023. * Progress note Date Encounter Last Documented by 10/02/2023 PAIN MANAGEMENT FOLLOW UP Last d ocumented on 10/03/2023; 10:10 AM, ZULEIMA CARRILLO APRN-FPA, 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-BC; [facility] Active Problems & Conditions - Chronic Low Back Pain - Coronary Artery Disease - Essential Hypertension - Gerd - Hyperlipidemia - Left Hip Pain - Nonorganic Sleep Apnea Obstructive - Obesity - Osteoarthritis Chief Complaint The Chief Complaint is: Follow up after TH 08/21/2023. History of Present Illness PHQ-9 Score: 13 Date:08/04/2023 BPI Score: Date: Oswestry Score: 66% Date: 08/04/2023 SOAPP-R Score: 9 Date:09/09/2022 Pain Location: Cervical, thoracic and lumbar, R shoulder, R hip Quality: aches, sharp, dull. Radiation: Blt shoulder . Left buttock Severity: Timing: constant. Associated Sx: Aggravating Factors: Getting up or down, Alleviating Factors: walking, aqua therapy, Past Tx: physical therapy neck and low back August-September 2022, facet and epidural injection cervical and Right shoulder. only the R shoulder inj helped, C5-7 cervical MBB 10/11/22 [not helpful] PRADEEP ROSE is a 62 year old male. - Allergy list reviewed - Problem list reviewed - Medication reconciliation performed - Medication list reviewed - Prescription Drug Monitoring Program website checked. 08/21/2023 - Prescription Drug Monitoring Program website checked. 04/01/20 - How much of the medication are you taking a day? BID. Patient only took maybe one a day for about 2 weeks because he was sick - Last dose of medication? A few days ago - Last dose of medication? this morning - Pain is continuous - Primary pain location Multiple - Primary pain duration Constant - Secondary pain duration Constant - Secondary pain location Multiple - Pain is throbbing - Pain is dull, aching - Pain is shooting - Pain is sharp - Pain is deep - Pain is heavy - Pain is like pins/needles - Pain aggravated lying down - Pain aggravated sitting - Pain aggravated standing - Pain aggravated by walking - Pain aggrated by coughing/sneezing - Pain aggravated lifting - Pain aggravated bending - Pain radiating to the right shoulder - Neck pain radiating to both sides - Groin pain radiating to both sides - No vertigo - Last drug screen appropriate 09/09/2022 Discussion: Here for routine FU for chronic pain to multiple locations. The current combination of medication and increase in Gabapentin has been helpful for him. He feels like this regimen has been the most helpful so far for him. He missed his appt with the mental health specialist stating he was sick and he also just doesn't want to go. He has to still FU w/ the surgeon. PRIOR VISIT: FU after medication adjustments made for his chronic pain to multiple areas. He feels like this combination has worked better for him than anything else has in the past. He denies medication side effects. He had a lumbar epidural injection with his surgeon that was not beneficial. He is in PT for the low back and then will likely have surgery. The low dose of Gabapentin has not helped with the neuropathy in his feet or his arthritis pain at all. We had discussed going up on the dose and he would like to try this. We will do a close FU in a few weeks to see if this is beneficial and to make sure he isn't having any side effects. PRIOR VISIT 06/04/23: FU for chronic pain to multiple locations. He is feeling down and overwhelmed today. He states Dr Otero did a xray of his knee and he needs a knee replacement. He is getting ready to start PT for the knee. He feels like he has pain in so many areas and sees so many doctors but nothing seems to be helping. He is feeling very depressed. Tearful at times. Frustrated. He denies any thoughts of self harm. He is quite disabled by his pain. He does not drive either so getting out is difficult. He lives alone. Son is next door. He states Dr Otero put him on Duloxetine but it didn't help with depression or pain so he stopped it. Looks like he was on 20mg. I explained to patient he should have let Dr Otero know as he likely just needed a dose increase. He is willing to try it again at a higher dose. No h/o renal insufficiency. He is also willing to see somebody about his depression. He would like a referral to someone at [facility]. He also stopped Butrans stating it just wasn't helping and he noticed no increase in his pain when he stopped it. He states he had some withdrawal from stopping the medication but did not call or tell anybody. He doesn't feel like there is much that is going to help him. We talked about realistic expectations today. We also discussed the need for multiple modalities to help w/ pain. He likes doing the aqua therapy and finds it beneficial but he is restricted to what insurance allows as he can not afford a membership to the pool and transporation is a concern also. He has to schedule rides 3 days ahead of time. He missed his shoulder injection w/ Dr Lara. He states there was just too much going on at the time. I encouraged him to reschedule this. He continues to have significant low back pain. Axial in nature. Sitting for too long or lifting anything makes this pain worse.He last did PT for his low back pain and his neck in August 29-September of 2022 for 8 weeks. He continues his home exercise program given to him by the therapist. We discussed getting MRI of the lumbar spine for further evaluation and then deciding on interventional procedures that may help him. We continue to try and get records from [facility]. I will call today since our requests so far have not seemed to produce any results. FIRST VISIT 09/09/22: New patient here today to establish care. He has multiple pain complaints today. They will be listed and discussed in order of severity. 1. He complains of neck pain that has been ongoing for multiple years. The pain is axial in nature. He reports the pain causing headaches. Pain is described as dull, aching, and fluctuating. If he sleeps wrong or looks down for long periods of time this makes the pain worse. Heat is minimally beneficial. THC/CBD gummy's help distract from pain but it is expensive and he cannot have it in his apartment. Tramadol was not helpful at all. He had a cervical epidural steroid injection that only benefited him for about four hours. He has had lower cervical facet injections that were not beneficial. 2. He also complains of low back pain. This is also axial in nature. Sitting for too long or lifting anything makes this pain worse. Aqua therapy and swimming helps quite a bit but there is nothing close by where he lives to do this regularly. He receives Aqua therapy intermittently when he does physical therapy. He last had physical therapy for both the neck and the low back in February 2022 through March 2022. He attempts to continue a home exercise program and stretches but this tends to make his pain worse. 3. He has right shoulder pain. This is made worse by repetitive motions. He helped his son wash his car and afterwards he had a lot of pain for a couple of days. He also has increased pain if he lays on the shoulder at night. Nothing really seems to make the pain much better. He had a steroid injection in the shoulder that offered him about four or five weeks of modest relief. The orthopedic discussed a possible shoulder replacement. 4. He complains of right hip pain. He was offered a steroid injection in the right hip but declined. He states prior to having his left hip replaced the injections were not helpful so he is reluctant to try them in his right hip. His orthopedic surgeon has discussed a possible future hip replacement. He cannot take NSAIDs due to his cardiovascular disease. He hasn't tried taking Tylenol much. He was prescribed Lidocaine patches and has tried these only for his flank pain that is unrelated to why he is here today. He has not tried these on any of his joints, neck, or low back. He denies any history of renal insufficiency. He has history of chronic hepatitis C that was treated and as far as he knows he does not have any liver cirrhosis/fibrosis/elevation of liver enzymes. I will request most recent labs. He is under the care of multiple orthopedic doctors through the [facility] in [place]. He sees an orthopedic Dr Eaton for his neck and low back, a Dr Pacheco is also involved in his care and performed the cervical epidural injection, Dr Escalera sees him for his right hip, and Dr. Gutierrez sees him for his right shoulder. His primary care doctor talked to him about Duloxetine but he does not want to take this medication. He is adamant about not taking it as he understands that it is also used as an antidepressant. He states he was on these medications several years ago and had a hard time coming off of them with withdrawal symptoms. I tried to explain to him it was because he stopped the medication suddenly and if you go off of them slowly that this likely would not happen. He still declines. He would like to start with his neck given this is the area that bothers him the most and seems to impact his overall function and quality of life. Today we discussed medial branch blocks with progression to thermal radiofrequency ablation if appropriate response. He understands we can only treat 2 levels at a time and multiple levels may need to be treated. He will have to monitor the area of treatment closely for pain symptoms. He understands pain will return. Imaging: All relevant imaging available was personally reviewed with the patient today with the following tests and results noted: MRI Cervical Spine 11/01/21 Impression: multilevel cervical spondylytic changes with no high-grade spinal canal stenosis and variable neural foraminal stenosis severe at C3-4, C4-5, and C5-6. MRI L spine 06/10/14: moderate to severe degenerative disc disease throughout the lumbar spine with end plate sclerosis and osteophyte formation. Mild curvature of lumbar spine with convexity to the left. Mild spondylolisthesis at L5-S1. Mild retrolisthesis of L3 over L4 and L2 over L3. Severe degenerative changes of the left hip C-spine x-rays 02/17/20: multilevel degenerative disc and facet arthritis with likely multilevel foraminal narrowing. L spine x-rays 02/17/20: mild degenerative disc disease and facet arthritis at several levels. MRI Lumbar Spine 07/01/23 Moderate to advanced lumbar disc degeneration with thickened ligamentum flavum and facet arthropathy at multiple levels. Spinal canal stenosis is most noticeable at L4-L5. Lateral recess narrowing, varying degrees of bilateral neural foraminal stenosis Xray R Knee 04/08/23 Moderate osteoarthritis involving the medial compartment MRI Thoracic spine 02/13/23 Minimal chronic degenerative disc disease lower thoracic spine Xray R [place]oulder 07/15/22 Moderate AC joint arthritis. Spur of the inferior humeral neck. Moderately severe glenohumeral arthritis Current Medication - Aspir-Low 81 MG Oral Tablet Delayed Release 2 puffs four times a day 0 days, 0 refills - Atorvastatin Calcium 40 MG Oral Tablet One tablet daily 90 days, 0 refills - Brian-Citrate Plus Vitamin D 250-2.5 MG-MCG Oral Tablet One tablet daily 0 days, 0 refills - Gabapentin 300 MG Oral Capsule 1 capsule three times a day, 21 days, 0 refills - Isosorbide Mononitrate ER [...] for muscle spasm, 14 days, 0 refills - Xtampza ER 18 MG Oral Capsule ER 12 Hour Abuse-Deterrent One tablet twice a day with food and water, 30 days, 0 refills Past Medical/Surgical History Reported: [...] father Maternal: Arthritis Fraternal: Ischemic heart disease Review Of Systems Systemic: No systemic symptoms other then noted. In poor overall health and fatigue. No recent weight loss. Head: No head symptoms other then noted. Headache chronic/recurring. Neck: Neck pain. Otolaryngeal: No otolaryngeal symptoms other than noted. Cardiovascular: No cardiovascular symptoms other than noted. Pulmonary: No pulmonary symptoms other than noted. Gastrointestinal: No difficulty chewing and no dysphagia. Genitourinary: No genitourinary symptoms other than noted. Endocrine: No endocrine symptoms other than noted. Hematologic: No easy bleeding and no tendency for easy bruising. Musculoskeletal: No musculoskeletal symptoms other than noted. Back pain and pain localized to one or more joints. Neurological: No neurological symptoms other than noted and no fainting passing out with needles or medical procedures. Numbness. Psychological: No sleep apnea. Skin: No skin symptoms other than noted. Physical Findings - Vitals taken 10/02/2023 10:05 am BP-Sitting R 138/82 mmHg BP Cuff Size Regular Pulse Rate-Sitting 66 bpm Temp-Oral 96.2 F Height 67 in Weight 235 lbs Body Mass Index 36.8 kg/m2 Body Surface Area 2.2 m2 Pain Level 7 Pain Level Note All over Oxygen Saturation 96 % Musculoskeletal System: General/bilateral: Musculoskeletal Scales: Value Lumbar oswestry score 52 Psychiatric: Psychiatric: Value PHQ9 score: 6 Constitutional: Well developed. Well nourished,obese. No acute distress. HEENT: NC/AT. Anicteric. Clear Conjunctiva. PERRLA. MM's pink/moist. No discharge via nares. No discharge via EAC. Neck supple. No thyromegally. No palpable masses. No lymphadenopathy in cervical chain bilaterally. CVS: RRR. No murmurs. No peripheral edema. Peripheral pulses palpable in all extremities. Pulmonary: CTA bilaterally. No wheezes. No rales. No crackles. No rubs. Normal chest expansion. Spine/MSK: Nontender cervical spine. Decreased range of motion. Loss of normal lordosis. Positive facet loading of the cervical spine on the right with Spurling's increasing pain but no radicular symptoms. Negative on the left. Nontender lumbar spine. Unable to lay supine due to low back pain. Has to have the knees bent. Negative thigh thrust and Jeronimo's bilaterally. Negative straight leg test bilaterally. Positive facet loading of the lumbar spine bilaterally, L>R. Reduced range of motion of the lumbar spine is significant with loss of normal lordosis. Normal right shoulder exam except for pain with O'Briens test. Gait: Not antalgic. No steppage gait. No Trendelenburg gait. No circumspected gait pattern. Heel walk normal. Toe walk normal. Tandem gait normal. Neuro: Awake. Alert. Oriented x3. DTR's intact in all extremities. DTR's equal in all extremities. No sensory deficit. No motor deficit. Psych: No apparent distress. Mood normal. Affect normal. No pain behaviors. Skin: Normal. [place], warm, dry. Assessment - [M19.011 - Primary osteoarthritis, right shoulder] Localized primary osteoarthritis of right shoulder - [M16.11 - Unilateral primary osteoarthritis, right hip] Localized primary osteoarthritis of right hip - [M25.511 - Pain in right shoulder] Arthralgia of right shoulder region - [M47.892 - Other spondylosis, cervical region] Cervical spondylosis - [M47.896 - Other spondylosis, lumbar region] Lumbar spondylosis - [M54.50 - Low back pain, unspecified] Low back pain - [M48.061 - Spinal stenosis, lumbar region without neurogenic claudication] Lumbar stenosis without neurogenic claudication - [M54.2 - Cervicalgia] Cervicalgia - [M54.81 - Occipital neuralgia] Occipital neuralgia - [F33.1 - Major depressive disorder, recurrent, moderate] Moderate recurrent major depression - [G89.4 - Chronic pain syndrome] Chronic pain syndrome Therapy - Reviewed & agreed to staff entries. - Intervention and counseling on cessation of tobacco use: Patient recieved smoking cessation handout. - Clinical summary provided to patient. Counseling/Education - Pill Count: 0 Xtampza [states he was sick for 2 weeks and wasn't taking it: last dose yesterday morning] Discussed FU 3months Patient is on chronic opioid therapy and tolerating well with no report of adverse symptoms or side effects. Patient reports improvement in pain and functional capacity. Objective measures of pain interference and physical functioning show clinically significant benefit from therapy. Patient expresses understanding of safe and appropriate use of opioids for analgesia. and demonstrates the same. Random pill counts and urine drug screens have been appropriate. This and review of the [facility] database shows no evidence of misuse, abuse, diversion or signs of addiction/use disorder. Patient advised of risks and benefits of medication including the development of tolerance, dependence, withdrawal, addiction, constipation/obstipation, itching, allergic reactions, sedation, worsening depression/anxiety, hormonal perturbations, cognitive impairment or impairment in judgement, psychomotor slowing/impairment, intoxication, injury/accident, DWI/DUI, respiratory depression or failure, development of hyperalgesia, overdose and . Patient is aware that the combination of opioid medications in any form, whether used over the short term or chronically, with other sedative or psychoactive medication including but not limited to benzodiazepines, muscle relaxants, THC, alcohol, hypnotics/sleep medications or other illicit drugs can result in an increased risk of overdose and and is discouraged. Patient is aware that in all cases the lowest effective dose of opioids should be used and doses should be weaned as tolerated as pain improves. Opioid consent form and patient-physician agreement have been reviewed with the patient with all questions satisfactorily elicited asked and answered. These documents have been signed, witnessed and entered into the patient record with a copy provided to the patient. Patient understands that violation of this agreement could result in discontinuation of controlled substances including opioids and possible dismissal from the practice. Patient was further instructed today on taking medication correctly; storing medication securely; disposing of medication properly. Patient was warned against sharing medication and escalating doses without the prescribing provider's knowledge and instruction. Patient was instructed to call the office directly for refills of any controlled substance 4-5 days in advance to avoid unnecessary delays or disruptions in their dosing.. Plan StartCited - intermediate designer (current) use of opiate analgesic Lab: PRESCRIBED DRUGS, medMATCH(R) Lab: DRUG MONITORING, PANEL 6 WITH CONFIRMATION, URINE EndCited StartCited - Other spondylosis, lumbar region tiZANidine HCl 2 MG tablet take 1-2 three times daily as needed for muscle spasm, 90 days, 0 refills EndCited StartCited - Spinal stenosis, lumbar region without neurogenic gini Gabapentin 300 MG capsule 1 capsule three times a day, 90 days, 0 refills Xtampza ER 18 MG capsule One tablet twice a day with food and water, 30 days, 0 refills EndCited Patient was seen today for multiple chronic unstable conditions of the musculoskeletal, spine, and central nervous system.Without treatment patient is at risk for significant functional limitations resulting in diminished quality of life and impaired age appropriate activities of daily living. Multiple documents have been reviewed in combination with today's evaluation including imaging studies, outside provider notes, laboratory data, patient self-report questionnaires, and [place] prescription monitoring database entries. Significant social barriers exist to compliance resulting in limited prognosis. Decision to proceed with interventional therapies was made at the time of today's visit. Urine sample ordered and sent to lab for testing with confirmation via LCMS when appropriate. Urine drug testing is ordered to monitor opioid use and ongoing candidacy, verify compliant use of controlled substances, and monitor for use of illicit substances as these may result in harmful interactions. Practice Management Use of tobacco assessment performed Review of medications documented; Standardized depression screening: positive for symptoms Standardized depression screening tool for adolescent not completed contraindicated Screening for adult depression: impression and score 13; [15561] Established outpatient, medically appropriate H&P, moderate level decision making, 30+ minutes. A total of 12 minutes were spent on this patient's care and evaluation, as above. Results of this interaction were communicated directly to the patient's referring and/or primary care provider. All imaging studies and test results discussed in the above document were personally reviewed and evaluated by the performing provider. For all patients on acute or chronic opioids, ongoing need for opioid analgesia is assessed at each visit with consideration of discontinuation or wean to lowest effective dose when possible and appropriate. Contents of this document have been edited for correctness, but may be subject to typographical or electrostatic powder coating technician errors. Verify all diagnoses, medications, dosages, and patient instructions with patient and/or the originator of this document. Care Team - KWASI OTERO MD - Primary Care Health Reminders - Assess Blood Pressure satisfied 10/02/2023. - Assess BMI satisfied 10/02/2023. - Assess Need for CT Lung Screen satisfied 10/02/2023. - Assess Tobacco Use satisfied 10/02/2023. - Depression Screening satisfied 10/02/2023. - Smoking & Tobacco Cessation Intervention and Counseling satisfied 10/02/2023. * Progress note Date Encounter Last Documented by 08/21/2023 TELEHEALTH Last documented on 08/21/2023; 10:17 AM, ZULEIMA Vázquez FERNIE MANUFACTURING TEST TECHNICIAN-FPA, 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-BC; [facility] Active Problems & Conditions - Chronic Low Back Pain - Coronary Artery Disease - Essential Hypertension - Gerd - Hyperlipidemia - Left Hip Pain - Nonorganic Sleep Apnea Obstructive - Obesity - Osteoarthritis Chief Complaint The Chief Complaint is: Follow up. History of Present Illness PHQ-9 Score: 6 Date:09/09/2022 BPI Score: Date: Oswestry Score: 52% Date: 09/09/22 SOAPP-R Score: 9 Date:09/09/2022 Pain Location: Cervical, thoracic and lumbar, R shoulder, R hip Quality: aches, sharp, dull. Radiation: Blt shoulder . Left buttock Severity: Timing: constant. Associated Sx: Aggravating Factors: Getting up or down, Alleviating Factors: walking, aqua therapy, Past Tx: physical therapy neck and low back August-September 2022, facet and epidural injection cervical and Right shoulder. only the R shoulder inj helped, C5-7 cervical MBB 10/11/22 [not helpful] PRADEEP ROSE is a 62 year old male. - Allergy list reviewed - Problem list reviewed - Medication reconciliation performed - Medication list reviewed - Prescription Drug Monitoring Program website checked. 07/16/2023 - Prescription Drug Monitoring Program website checked. 04/01/20 - How much of the medication are you taking a day? BID - Last dose of medication? Today - Last dose of medication? this morning - Pain is continuous - Primary pain location Multiple - Primary pain duration Constant - Secondary pain duration Constant - Secondary pain location Multiple - Pain is throbbing - Pain is dull, aching - Pain is shooting - Pain is sharp - Pain is deep - Pain is heavy - Pain is like pins/needles - Pain aggravated lying down - Pain aggravated sitting - Pain aggravated standing - Pain aggravated by walking - Pain aggrated by coughing/sneezing - Pain aggravated lifting - Pain aggravated bending - Pain radiating to the right shoulder - Neck pain radiating to both sides - Groin pain radiating to both sides - No vertigo - Last drug screen appropriate 09/09/2022 Discussion: FU after medication adjustments made for his chronic pain to multiple areas. He feels like this combination has worked better for him than anything else has in the past. He denies medication side effects. He had a lumbar epidural injection with his surgeon that was not beneficial. He is in PT for the low back and then will likely have surgery. The low dose of Gabapentin has not helped with the neuropathy in his feet or his arthritis pain at all. We had discussed going up on the dose and he would like to try this. We will do a close FU in a few weeks to see if this is beneficial and to make sure he isn't having any side effects. PRIOR VISIT 06/04/23: FU for chronic pain to multiple locations. He is feeling down and overwhelmed today. He states Dr Otero did a xray of his knee and he needs a knee replacement. He is getting ready to start PT for the knee. He feels like he has pain in so many areas and sees so many doctors but nothing seems to be helping. He is feeling very depressed. Tearful at times. Frustrated. He denies any thoughts of self harm. He is quite disabled by his pain. He does not drive either so getting out is difficult. He lives alone. Son is next door. He states Dr Otero put him on Duloxetine but it didn't help with depression or pain so he stopped it. Looks like he was on 20mg. I explained to patient he should have let Dr Otero know as he likely just needed a dose increase. He is willing to try it again at a higher dose. No h/o renal insufficiency. He is also willing to see somebody about his depression. He would like a referral to someone at [facility]. He also stopped Butrans stating it just wasn't helping and he noticed no increase in his pain when he stopped it. He states he had some withdrawal from stopping the medication but did not call or tell anybody. He doesn't feel like there is much that is going to help him. We talked about realistic expectations today. We also discussed the need for multiple modalities to help w/ pain. He likes doing the aqua therapy and finds it beneficial but he is restricted to what insurance allows as he can not afford a membership to the pool and transporation is a concern also. He has to schedule rides 3 days ahead of time. He missed his shoulder injection w/ Dr Lara. He states there was just too much going on at the time. I encouraged him to reschedule this. He continues to have significant low back pain. Axial in nature. Sitting for too long or lifting anything makes this pain worse.He last did PT for his low back pain and his neck in August 29-September of 2022 for 8 weeks. He continues his home exercise program given to him by the therapist. We discussed getting MRI of the lumbar spine for further evaluation and then deciding on interventional procedures that may help him. We continue to try and get records from [facility]. I will call today since our requests so far have not seemed to produce any results. FIRST VISIT 09/09/22: New patient here today to establish care. He has multiple pain complaints today. They will be listed and discussed in order of severity. 1. He complains of neck pain that has been ongoing for multiple years. The pain is axial in nature. He reports the pain causing headaches. Pain is described as dull, aching, and fluctuating. If he sleeps wrong or looks down for long periods of time this makes the pain worse. Heat is minimally beneficial. THC/CBD gummy's help distract from pain but it is expensive and he cannot have it in his apartment. Tramadol was not helpful at all. He had a cervical epidural steroid injection that only benefited him for about four hours. He has had lower cervical facet injections that were not beneficial. 2. He also complains of low back pain. This is also axial in nature. Sitting for too long or lifting anything makes this pain worse. Aqua therapy and swimming helps quite a bit but there is nothing close by where he lives to do this regularly. He receives Aqua therapy intermittently when he does physical therapy. He last had physical therapy for both the neck and the low back in February 2022 through March 2022. He attempts to continue a home exercise program and stretches but this tends to make his pain worse. 3. He has right shoulder pain. This is made worse by repetitive motions. He helped his son wash his car and afterwards he had a lot of pain for a couple of days. He also has increased pain if he lays on the shoulder at night. Nothing really seems to make the pain much better. He had a steroid injection in the shoulder that offered him about four or five weeks of modest relief. The orthopedic discussed a possible shoulder replacement. 4. He complains of right hip pain. He was offered a steroid injection in the right hip but declined. He states prior to having his left hip replaced the injections were not helpful so he is reluctant to try them in his right hip. His orthopedic surgeon has discussed a possible future hip replacement. He cannot take NSAIDs due to his cardiovascular disease. He hasn't tried taking Tylenol much. He was prescribed Lidocaine patches and has tried these only for his flank pain that is unrelated to why he is here today. He has not tried these on any of his joints, neck, or low back. He denies any history of renal insufficiency. He has history of chronic hepatitis C that was treated and as far as he knows he does not have any liver cirrhosis/fibrosis/elevation of liver enzymes. I will request most recent labs. He is under the care of multiple orthopedic doctors through the [facility] [place] in [place]. He sees an orthopedic Dr Eaton for his neck and low back, a Dr Pacheco is also involved in his care and performed the cervical epidural injection, Dr Escalera sees him for his right hip, and Dr. Gutierrez sees him for his right shoulder. His primary care doctor talked to him about Duloxetine but he does not want to take this medication. He is adamant about not taking it as he understands that it is also used as an antidepressant. He states he was on these medications several years ago and had a hard time coming off of them with withdrawal symptoms. I tried to explain to him it was because he stopped the medication suddenly and if you go off of them slowly that this likely would not happen. He still declines. He would like to start with his neck given this is the area that bothers him the most and seems to impact his overall function and quality of life. Today we discussed medial branch blocks with progression to thermal radiofrequency ablation if appropriate response. He understands we can only treat 2 levels at a time and multiple levels may need to be treated. He will have to monitor the area of treatment closely for pain symptoms. He understands pain will return. Imaging: All relevant imaging available was personally reviewed with the patient today with the following tests and results noted: MRI Cervical Spine 11/01/21 Impression: multilevel cervical spondylytic changes with no high-grade spinal canal stenosis and variable neural foraminal stenosis severe at C3-4, C4-5, and C5-6. MRI L spine 06/10/14: moderate to severe degenerative disc disease throughout the lumbar spine with end plate sclerosis and osteophyte formation. Mild curvature of lumbar spine with convexity to the left. Mild spondylolisthesis at L5-S1. Mild retrolisthesis of L3 over L4 and L2 over L3. Severe degenerative changes of the left hip C-spine x-rays 02/17/20: multilevel degenerative disc and facet arthritis with likely multilevel foraminal narrowing. L spine x-rays 02/17/20: mild degenerative disc disease and facet arthritis at several levels. MRI Lumbar Spine 07/01/23 Moderate to advanced lumbar disc degeneration with thickened ligamentum flavum and facet arthropathy at multiple levels. Spinal canal stenosis is most noticeable at L4-L5. Lateral recess narrowing, varying degrees of bilateral neural foraminal stenosis Xray R Knee 04/08/23 Moderate osteoarthritis involving the medial compartment MRI Thoracic spine 02/13/23 Minimal chronic degenerative disc disease lower thoracic spine Xray R [place]oulder 07/15/22 Moderate AC joint arthritis. Spur of the inferior humeral neck. Moderately severe glenohumeral arthritis Current Medication - Aspir-Low 81 MG Oral [...] a day 30 days, 0 refills - Isosorbide Mononitrate [...] father Maternal: Arthritis Fraternal: Ischemic heart disease Review Of Systems Systemic: No systemic symptoms other then noted. In poor overall health and fatigue. No recent weight loss. Head: No head symptoms other then noted. Headache chronic/recurring. Neck: Neck pain. Otolaryngeal: No otolaryngeal symptoms other than noted. Cardiovascular: No cardiovascular symptoms other than noted. Pulmonary: No pulmonary symptoms other than noted. Gastrointestinal: No difficulty chewing and no dysphagia. Genitourinary: No genitourinary symptoms other than noted. Endocrine: No endocrine symptoms other than noted. Hematologic: No easy bleeding and no tendency for easy bruising. Musculoskeletal: No musculoskeletal symptoms other than noted. Back pain and pain localized to one or more joints. Neurological: No neurological symptoms other than noted and no fainting passing out with needles or medical procedures. Numbness. Psychological: No sleep apnea. Skin: No skin symptoms other than noted. Physical Findings - Vitals taken 08/21/2023 09:55 am Temp-Oral 98 F Height 67 in Weight 245 lbs Body Mass Index 38.4 kg/m2 Body Surface Area 2.2 m2 Pain Level 5 Pain Level Note Lumbar and cervical Musculoskeletal System: General/bilateral: Musculoskeletal Scales: Value Lumbar oswestry score 52 Psychiatric: Psychiatric: Value PHQ9 score: 6 PAST EXAM Constitutional: Well developed. Well nourished,obese. No acute distress. HEENT: NC/AT. Anicteric. Clear Conjunctiva. PERRLA. MM's pink/moist. No discharge via nares. No discharge via EAC. Neck supple. No thyromegally. No palpable masses. No lymphadenopathy in cervical chain bilaterally. CVS: RRR. No murmurs. No peripheral edema. Peripheral pulses palpable in all extremities. Pulmonary: CTA bilaterally. No wheezes. No rales. No crackles. No rubs. Normal chest expansion. Spine/MSK: Nontender cervical spine. Decreased range of motion. Loss of normal lordosis. Positive facet loading of the cervical spine on the right with Spurling's increasing pain but no radicular symptoms. Negative on the left. Nontender lumbar spine. Unable to lay supine due to low back pain. Has to have the knees bent. Negative thigh thrust and Jeronimo's bilaterally. Negative straight leg test bilaterally. Positive facet loading of the lumbar spine bilaterally, L>R. Reduced range of motion of the lumbar spine is significant with loss of normal lordosis. Normal right shoulder exam except for pain with O'Briens test. Gait: Not antalgic. No steppage gait. No Trendelenburg gait. No circumspected gait pattern. Heel walk normal. Toe walk normal. Tandem gait normal. Neuro: Awake. Alert. Oriented x3. DTR's intact in all extremities. DTR's equal in all extremities. No sensory deficit. No motor deficit. Psych: No apparent distress. Mood normal. Affect normal. No pain behaviors. Skin: Normal. [place], warm, dry. Assessment - [M19.011 - Primary osteoarthritis, right shoulder] Localized primary osteoarthritis of right shoulder - [M16.11 - Unilateral primary osteoarthritis, right hip] Localized primary osteoarthritis of right hip - [M25.511 - Pain in right shoulder] Arthralgia of right shoulder region - [M47.892 - Other spondylosis, cervical region] Cervical spondylosis - [M47.896 - Other spondylosis, lumbar region] Lumbar spondylosis - [M54.50 - Low back pain, unspecified] Low back pain - [M48.061 - Spinal stenosis, lumbar region without neurogenic claudication] Lumbar stenosis without neurogenic claudication - [M54.2 - Cervicalgia] Cervicalgia - [M54.81 - Occipital neuralgia] Occipital neuralgia - [F33.1 - Major depressive disorder, recurrent, moderate] Moderate recurrent major depression - [G89.4 - Chronic pain syndrome] Chronic pain syndrome Therapy - Reviewed & agreed to staff entries. - Intervention and counseling on cessation of tobacco use: Patient recieved smoking cessation handout. - Clinical summary provided to patient. Counseling/Education - Pill Count: six Xtampza Discussed See mental health specialist as scheduled. FU w/ surgeon as scheduled. Increase Gabapentin dose. FU 3 weeks Patient has tried and failed in the past Fentanyl, Morphine, Butrans, and Hydrocodone. Patient is on chronic opioid therapy and tolerating well with no report of adverse symptoms or side effects. Patient reports improvement in pain and functional capacity. Objective measures of pain interference and physical functioning show clinically significant benefit from therapy. Patient expresses understanding of safe and appropriate use of opioids for analgesia. and demonstrates the same. Random pill counts and urine drug screens have been appropriate. This and review of the [facility] database shows no evidence of misuse, abuse, diversion or signs of addiction/use disorder. Patient advised of risks and benefits of medication including the development of tolerance, dependence, withdrawal, addiction, constipation/obstipation, itching, allergic reactions, sedation, worsening depression/anxiety, hormonal perturbations, cognitive impairment or impairment in judgement, psychomotor slowing/impairment, intoxication, injury/accident, DWI/DUI, respiratory depression or failure, development of hyperalgesia, overdose and . Patient is aware that the combination of opioid medications in any form, whether used over the short term or chronically, with other sedative or psychoactive medication including but not limited to benzodiazepines, muscle relaxants, THC, alcohol, hypnotics/sleep medications or other illicit drugs can result in an increased risk of overdose and and is discouraged. Patient is aware that in all cases the lowest effective dose of opioids should be used and doses should be weaned as tolerated as pain improves. Opioid consent form and patient-physician agreement have been reviewed with the patient with all questions satisfactorily elicited asked and answered. These documents have been signed, witnessed and entered into the patient record with a copy provided to the patient. Patient understands that violation of this agreement could result in discontinuation of controlled substances including opioids and possible dismissal from the practice. Patient was further instructed today on taking medication correctly; storing medication securely; disposing of medication properly. Patient was warned against sharing medication and escalating doses without the prescribing provider's knowledge and instruction. Patient was instructed to call the office directly for refills of any controlled substance 4-5 days in advance to avoid unnecessary delays or disruptions in their dosing.. Plan StartCited - Other spondylosis, lumbar region tiZANidine HCl 2 MG tablet take 1-2 three times daily as needed for muscle spasm, 14 days, 0 refills EndCited StartCited - Spinal stenosis, lumbar region without neurogenic gini Xtampza ER 18 MG capsule One tablet twice a day with food and water, 30 days, 0 refills Gabapentin 300 MG capsule 1 capsule three times a day, 21 days, 0 refills EndCited Patient was seen today for multiple chronic unstable conditions of the musculoskeletal, spine, and central nervous system.Without treatment patient is at risk for significant functional limitations resulting in diminished quality of life and impaired age appropriate activities of daily living. Multiple documents have been reviewed in combination with today's evaluation including imaging studies, outside provider notes, laboratory data, patient self-report questionnaires, and [place] prescription monitoring database entries. Significant social barriers exist to compliance resulting in limited prognosis. Decision to proceed with interventional therapies was made at the time of today's visit. Practice Management Use of tobacco assessment performed Review of medications documented; Standardized depression screening: positive for symptoms Standardized depression screening tool for adolescent not completed contraindicated Screening for adult depression: impression and score 13; [28972] Established outpatient, medically appropriate H&P, moderate level decision making, 30-39 minutes. A total of 12 minutes were spent on this patient's care and evaluation, as above. Results of this interaction were communicated directly to the patient's referring and/or primary care provider. All imaging studies and test results discussed in the above document were personally reviewed and evaluated by the performing provider. For all patients on acute or chronic opioids, ongoing need for opioid analgesia is assessed at each visit with consideration of discontinuation or wean to lowest effective dose when possible and appropriate. Contents of this document have been edited for correctness, but may be subject to typographical or electrostatic powder coating technician errors. Verify all diagnoses, medications, dosages, and patient instructions with patient and/or the originator of this document. Telehealth Visit: Audio only. Patient called from their home. Provider located at home. Patient consents to bill insurance for this visit. No exam completed. If at anytime it was felt patient need to be evaluated arrangements would be made. Care Team - KWASI OTERO MD - Primary Care Health Reminders - Assess BMI satisfied 08/21/2023. - Assess Need for CT Lung Screen satisfied 08/21/2023. - Assess Tobacco Use satisfied 08/21/2023. - Depression Screening satisfied 08/21/2023. - Smoking & Tobacco Cessation Intervention and Counseling satisfied 08/21/2023. * Progress note Date Encounter Last Documented by 08/04/2023 * PHONE CALL Last documented on 08/04/2023; 2:34 PM, ZULEIMA CARRILLO APRN-FPA, SOCO-BC; [facility] Active Problems & Conditions - Chronic Low Back Pain - Coronary Artery Disease - Essential Hypertension - Gerd - Hyperlipidemia - Left Hip Pain - Nonorganic Sleep Apnea Obstructive - Obesity - Osteoarthritis Chief Complaint Phone Call - Chief Concern: reason for call: [facility] not able to get Xtampza ER needs this sent to [facility] in [facility]. 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 Current Medication - Aspir-Low 81 MG Oral [...] 08/04/2023. - Assess Tobacco Use satisfied 08/04/2023. * Progress note Date Encounter Last Documented by 08/04/2023 PAIN MANAGEMENT FOLLOW UP Last d ocumented on 08/04/2023; 9:52 AM, ZULEIMA Vázquez FERNIE MANUFACTURING TEST TECHNICIAN-FPA, FRE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-BC; [facility] Active Problems & Conditions - Chronic Low Back Pain - Coronary Artery Disease - Essential Hypertension - Gerd - Hyperlipidemia - Left Hip Pain - Nonorganic Sleep Apnea Obstructive - Obesity - Osteoarthritis Chief Complaint The Chief Complaint is: Follow up after . Medication is not working. History of Present Illness PHQ-9 Score: 6 Date:09/09/2022 BPI Score: Date: Oswestry Score: 52% Date: 09/09/22 SOAPP-R Score: 9 Date:09/09/2022 Pain Location: Cervical, thoracic and lumbar, R shoulder, R hip Quality: aches, sharp, dull. Radiation: Blt shoulder . Left buttock Severity: Timing: constant. Associated Sx: Aggravating Factors: Getting up or down, Alleviating Factors: walking, aqua therapy, Past Tx: physical therapy neck and low back August-September 2022, facet and epidural injection cervical and Right shoulder. only the R shoulder inj helped, C5-7 cervical MBB 10/11/22 [not helpful] PRADEEP ROSE is a 62 year old male. - Allergy list reviewed - Problem list reviewed - Medication reconciliation performed - Medication list reviewed - Prescription Drug Monitoring Program website checked. 07/16/2023 - Prescription Drug Monitoring Program website checked. 04/01/20 - How much of the medication are you taking a day? 4 per day since 07/23/2023 due to advise from ER doctor - Last dose of medication? Today - Last dose of medication? this morning - Pain is continuous - Primary pain location Multiple - Primary pain duration Constant - Secondary pain duration Constant - Secondary pain location Multiple - Pain is throbbing - Pain is dull, aching - Pain is shooting - Pain is sharp - Pain is deep - Pain is heavy - Pain is like pins/needles - Pain aggravated lying down - Pain aggravated sitting - Pain aggravated standing - Pain aggravated by walking - Pain aggrated by coughing/sneezing - Pain aggravated lifting - Pain aggravated bending - Pain radiating to the right shoulder - Neck pain radiating to both sides - Groin pain radiating to both sides - No vertigo - Last drug screen appropriate 09/09/2022 Discussion: Here for routine follow up for chronic pain to neck, low back, and multiple joints. He states he had to go to the ER for his pain since I last saw him. He is having a lot of muscle spasms. They advised him to increase his Hydrocodone to 4x daily but this has not helped him at all. He has also seen his surgeon since I last talked with him. He states the surgeon wants to do surgery but they are making him do PT again and an injection which is scheduled for 08/12 before he can have surgery. He has had a right knee injection since I last saw him. It has been helping. He had a R shoulder injection but that has not helped. [facility]. He stopped the Duloxetine because it was making him sick and did not start the Bupropion stating I don't want anything that messes with my brain . I asked him to go ahead and see the mental health specialist he is scheduled with in September. We discussed importance of getting his depression and anxiety under control otherwise we will not be able to get pain under control. He verbalizes understanding. PRIOR VISIT 06/04/23: FU for chronic pain to multiple locations. He is feeling down and overwhelmed today. He states Dr Otero did a xray of his knee and he needs a knee replacement. He is getting ready to start PT for the knee. He feels like he has pain in so many areas and sees so many doctors but nothing seems to be helping. He is feeling very depressed. Tearful at times. Frustrated. He denies any thoughts of self harm. He is quite disabled by his pain. He does not drive either so getting out is difficult. He lives alone. Son is next door. He states Dr Otero put him on Duloxetine but it didn't help with depression or pain so he stopped it. Looks like he was on 20mg. I explained to patient he should have let Dr Otero know as he likely just needed a dose increase. He is willing to try it again at a higher dose. No h/o renal insufficiency. He is also willing to see somebody about his depression. He would like a referral to someone at [facility]. He also stopped Butrans stating it just wasn't helping and he noticed no increase in his pain when he stopped it. He states he had some withdrawal from stopping the medication but did not call or tell anybody. He doesn't feel like there is much that is going to help him. We talked about realistic expectations today. We also discussed the need for multiple modalities to help w/ pain. He likes doing the aqua therapy and finds it beneficial but he is restricted to what insurance allows as he can not afford a membership to the pool and transporation is a concern also. He has to schedule rides 3 days ahead of time. He missed his shoulder injection w/ Dr Lara. He states there was just too much going on at the time. I encouraged him to reschedule this. He continues to have significant low back pain. Axial in nature. Sitting for too long or lifting anything makes this pain worse.He last did PT for his low back pain and his neck in August 29-September of 2022 for 8 weeks. He continues his home exercise program given to him by the therapist. We discussed getting MRI of the lumbar spine for further evaluation and then deciding on interventional procedures that may help him. We continue to try and get records from [facility]. I will call today since our requests so far have not seemed to produce any results. FIRST VISIT 09/09/22: New patient here today to establish care. He has multiple pain complaints today. They will be listed and discussed in order of severity. 1. He complains of neck pain that has been ongoing for multiple years. The pain is axial in nature. He reports the pain causing headaches. Pain is described as dull, aching, and fluctuating. If he sleeps wrong or looks down for long periods of time this makes the pain worse. Heat is minimally beneficial. THC/CBD gummy's help distract from pain but it is expensive and he cannot have it in his apartment. Tramadol was not helpful at all. He had a cervical epidural steroid injection that only benefited him for about four hours. He has had lower cervical facet injections that were not beneficial. 2. He also complains of low back pain. This is also axial in nature. Sitting for too long or lifting anything makes this pain worse. Aqua therapy and swimming helps quite a bit but there is nothing close by where he lives to do this regularly. He receives Aqua therapy intermittently when he does physical therapy. He last had physical therapy for both the neck and the low back in February 2022 through March 2022. He attempts to continue a home exercise program and stretches but this tends to make his pain worse. 3. He has right shoulder pain. This is made worse by repetitive motions. He helped his son wash his car and afterwards he had a lot of pain for a couple of days. He also has increased pain if he lays on the shoulder at night. Nothing really seems to make the pain much better. He had a steroid injection in the shoulder that offered him about four or five weeks of modest relief. The orthopedic discussed a possible shoulder replacement. 4. He complains of right hip pain. He was offered a steroid injection in the right hip but declined. He states prior to having his left hip replaced the injections were not helpful so he is reluctant to try them in his right hip. His orthopedic surgeon has discussed a possible future hip replacement. He cannot take NSAIDs due to his cardiovascular disease. He hasn't tried taking Tylenol much. He was prescribed Lidocaine patches and has tried these only for his flank pain that is unrelated to why he is here today. He has not tried these on any of his joints, neck, or low back. He denies any history of renal insufficiency. He has history of chronic hepatitis C that was treated and as far as he knows he does not have any liver cirrhosis/fibrosis/elevation of liver enzymes. I will request most recent labs. He is under the care of multiple orthopedic doctors through the [facility] [place] in [place]. He sees an orthopedic Dr Eaton for his neck and low back, a Dr Pacheco is also involved in his care and performed the cervical epidural injection, Dr Escalera sees him for his right hip, and Dr. Gutierrez sees him for his right shoulder. His primary care doctor talked to him about Duloxetine but he does not want to take this medication. He is adamant about not taking it as he understands that it is also used as an antidepressant. He states he was on these medications several years ago and had a hard time coming off of them with withdrawal symptoms. I tried to explain to him it was because he stopped the medication suddenly and if you go off of them slowly that this likely would not happen. He still declines. He would like to start with his neck given this is the area that bothers him the most and seems to impact his overall function and quality of life. Today we discussed medial branch blocks with progression to thermal radiofrequency ablation if appropriate response. He understands we can only treat 2 levels at a time and multiple levels may need to be treated. He will have to monitor the area of treatment closely for pain symptoms. He understands pain will return. Imaging: All relevant imaging available was personally reviewed with the patient today with the following tests and results noted: MRI Cervical Spine 11/01/21 Impression: multilevel cervical spondylytic changes with no high-grade spinal canal stenosis and variable neural foraminal stenosis severe at C3-4, C4-5, and C5-6. MRI L spine 06/10/14: moderate to severe degenerative disc disease throughout the lumbar spine with end plate sclerosis and osteophyte formation. Mild curvature of lumbar spine with convexity to the left. Mild spondylolisthesis at L5-S1. Mild retrolisthesis of L3 over L4 and L2 over L3. Severe degenerative changes of the left hip C-spine x-rays 02/17/20: multilevel degenerative disc and facet arthritis with likely multilevel foraminal narrowing. L spine x-rays 02/17/20: mild degenerative disc disease and facet arthritis at several levels. MRI Lumbar Spine 07/01/23 Moderate to advanced lumbar disc degeneration with thickened ligamentum flavum and facet arthropathy at multiple levels. Spinal canal stenosis is most noticeable at L4-L5. Lateral recess narrowing, varying degrees of bilateral neural foraminal stenosis Xray R Knee 04/08/23 Moderate osteoarthritis involving the medial compartment MRI Thoracic spine 02/13/23 Minimal chronic degenerative disc disease lower thoracic spine Xray R [place] 07/15/22 Moderate AC joint arthritis. Spur of the inferior humeral neck. Moderately severe glenohumeral arthritis Current Medication - Aspir-Low 81 MG Oral [...] directed As needed., 25 days, 0 refills Past Medical/Surgical History Reported: [...] father Maternal: Arthritis Fraternal: Ischemic heart disease Review Of Systems Systemic: No systemic symptoms other then noted. In poor overall health and fatigue. No recent weight loss. Head: No head symptoms other then noted. Headache chronic/recurring. Neck: Neck pain. Otolaryngeal: No otolaryngeal symptoms other than noted. Cardiovascular: No cardiovascular symptoms other than noted. Pulmonary: No pulmonary symptoms other than noted. Gastrointestinal: No difficulty chewing and no dysphagia. Genitourinary: No genitourinary symptoms other than noted. Endocrine: No endocrine symptoms other than noted. Hematologic: No easy bleeding and no tendency for easy bruising. Musculoskeletal: No musculoskeletal symptoms other than noted. Back pain and pain localized to one or more joints. Neurological: No neurological symptoms other than noted and no fainting passing out with needles or medical procedures. Numbness. Psychological: No sleep apnea. Skin: No skin symptoms other than noted. Physical Findings - Vitals taken 08/04/2023 08:58 am BP-Sitting R 146/98 mmHg BP Cuff Size Regular Pulse Rate-Sitting 74 bpm Temp-Temporal 96.7 F Height 67 in Weight 245 lbs Body Mass Index 38.4 kg/m2 Body Surface Area 2.2 m2 Pain Level 8 Pain Level Note full spine and lumbar Oxygen Saturation 98 % Musculoskeletal System: General/bilateral: Musculoskeletal Scales: Value Lumbar oswestry score 52 Psychiatric: Psychiatric: Value PHQ9 score: 6 Constitutional: Well developed. Well nourished,obese. No acute distress. HEENT: NC/AT. Anicteric. Clear Conjunctiva. PERRLA. MM's pink/moist. No discharge via nares. No discharge via EAC. Neck supple. No thyromegally. No palpable masses. No lymphadenopathy in cervical chain bilaterally. CVS: RRR. No murmurs. No peripheral edema. Peripheral pulses palpable in all extremities. Pulmonary: CTA bilaterally. No wheezes. No rales. No crackles. No rubs. Normal chest expansion. Spine/MSK: Nontender cervical spine. Decreased range of motion. Loss of normal lordosis. Positive facet loading of the cervical spine on the right with Spurling's increasing pain but no radicular symptoms. Negative on the left. Nontender lumbar spine. Unable to lay supine due to low back pain. Has to have the knees bent. Negative thigh thrust and Jeronimo's bilaterally. Negative straight leg test bilaterally. Positive facet loading of the lumbar spine bilaterally, L>R. Reduced range of motion of the lumbar spine is significant with loss of normal lordosis. Normal right shoulder exam except for pain with O'Briens test. Gait: Not antalgic. No steppage gait. No Trendelenburg gait. No circumspected gait pattern. Heel walk normal. Toe walk normal. Tandem gait normal. Neuro: Awake. Alert. Oriented x3. DTR's intact in all extremities. DTR's equal in all extremities. No sensory deficit. No motor deficit. Psych: No apparent distress. Mood normal. Affect normal. No pain behaviors. Skin: Normal. [place], warm, dry. Assessment - [M19.011 - Primary osteoarthritis, right shoulder] Localized primary osteoarthritis of right shoulder - [M16.11 - Unilateral primary osteoarthritis, right hip] Localized primary osteoarthritis of right hip - [M25.511 - Pain in right shoulder] Arthralgia of right shoulder region - [M47.892 - Other spondylosis, cervical region] Cervical spondylosis - [M47.896 - Other spondylosis, lumbar region] Lumbar spondylosis - [M54.50 - Low back pain, unspecified] Low back pain - [M48.061 - Spinal stenosis, lumbar region without neurogenic claudication] Lumbar stenosis without neurogenic claudication - [M54.2 - Cervicalgia] Cervicalgia - [M54.81 - Occipital neuralgia] Occipital neuralgia - [F33.1 - Major depressive disorder, recurrent, moderate] Moderate recurrent major depression - [G89.4 - Chronic pain syndrome] Chronic pain syndrome Therapy - Reviewed & agreed to staff entries. - Intervention and counseling on cessation of tobacco use: Patient recieved smoking cessation handout. - Clinical summary provided to patient. Counseling/Education - Pill Count: 28 Hydrocodone Discussed See mental health specialist as scheduled. FU w/ surgeon as scheduled. Start Tizanidine, monitor for side effects. Stop Hydrocodone and start Xtampza next week. FU phone visit 3 weeks. Consider increasing Gabapentin dose. Patient has tried and failed in the past Fentanyl, Morphine, Butrans, and Hydrocodone. Patient advised of risks and benefits of medication use with Xtampza including tolerance, dependence, addiction, constipation, itching, allergic reactions, sedation, impairment, respiratory depression or failure, and development of hyperalgesia Patient was instructed on taking medication correctly, storing medication securely, disposing of medication properly, and to never share medication. Plan StartCited - Other PHY ORDER/COMMENT please request CD of MRI lumbar spine from [facility] EndCited StartCited - Other spondylosis, lumbar region tiZANidine HCl 2 MG tablet take 1-2 three times daily as needed for muscle spasm, 14 days, 0 refills EndCited StartCited - Spinal stenosis, lumbar region without neurogenic gini Xtampza ER 18 MG capsule One tablet twice a day with food and water, 14 days, 0 refills Narcan 4 MG/0.1ML each 1 spray intranasally for suspected overdose, 30 days, 0 refills EndCited Patient was seen today for multiple chronic unstable conditions of the musculoskeletal, spine, and central nervous system.Without treatment patient is at risk for significant functional limitations resulting in diminished quality of life and impaired age appropriate activities of daily living. Multiple documents have been reviewed in combination with today's evaluation including imaging studies, outside provider notes, laboratory data, patient self-report questionnaires, and [place] prescription monitoring database entries. Significant social barriers exist to compliance resulting in limited prognosis. Decision to proceed with interventional therapies was made at the time of today's visit. Practice Management Use of tobacco assessment performed Review of medications documented; Standardized depression screening: negative for symptoms Standardized depression screening tool for adolescent not completed contraindicated Screening for adult depression: impression and score three; [69874] Established outpatient, medically appropriate H&P, moderate level decision making, 30-39 minutes. A total of 30 minutes were spent on this patient's care and evaluation, as above. Results of this interaction were communicated directly to the patient's referring and/or primary care provider. All imaging studies and test results discussed in the above document were personally reviewed and evaluated by the performing provider. For all patients on acute or chronic opioids, ongoing need for opioid analgesia is assessed at each visit with consideration of discontinuation or wean to lowest effective dose when possible and appropriate. Contents of this document have been edited for correctness, but may be subject to typographical or electrostatic powder coating technician errors. Verify all diagnoses, medications, dosages, and patient instructions with patient and/or the originator of this document. Care Team - KWASI OTERO MD - Primary Care Health Reminders - Assess Blood Pressure satisfied 08/04/2023. - Assess BMI satisfied 08/04/2023. - Assess Need for CT Lung Screen satisfied 08/04/2023. - Assess Tobacco Use satisfied 08/04/2023. - Depression Screening satisfied 08/04/2023. - Follow up plan for Depression Screening satisfied 08/04/2023. - Smoking & Tobacco Cessation Intervention and Counseling satisfied 08/04/2023.
--- OUTSIDE RECORDS SUMMARY | 2024-08-03 01:17 | XMS_ITS | Clinical Summary ---
Author Organization [facility] Address [address] [place] [address] Phone Care Team Providers Care Operations Associate Name Role Phone KWASI OTERO MD Primary Care Provider [phone] Reason for Visit and Chief Complaint The Chief Complaint is: Follow up Problems Includes: Problems addressed during this encounter and other active Problems All Visits Onset Date Resolved Date Provider Condition S tatus Gerd 02/04/2020 KATIE L JOLENE ANP-BC A ctive Last Documented On 0 2:45PM ; [facility] Hyperlipidemia 02/04/2020 KATIE L JOLENE ANP- BC Active Last Documented On 0 2:46PM ; [facility] Essential Hypertension 02/04/2020 KATIE L BLEV INS ANP-BC Active Last Documented On 0 2:44PM ; [facility] Left Hip Pain 02/04/2020 KATIE L JOLENE ANP-B C Active Last Documented On 0 2:44PM ; [facility] Chronic Low Back Pain 02/04/2020 KATIE L BLEVI NS ANP-BC Active Last Documented On 0 2:44PM ; [facility] Osteoarthritis 02/04/2020 KATIE L JOLENE ANP- BC Active Last Documented On 0 2:46PM ; [facility] Coronary Artery Disease Unknown ZULEIMA G KU LP LEAD PHP DEVELOPER-FPA, MAILING MACHINE OPERATOR-BC Active Last Documented On 3 10:18AM ; [facility] Obesity Unknown ZULEIMA G FERINE LEAD PHP DEVELOPER-FPA, MAILING MACHINE OPERATOR-BC Active Last Documented On 3 10:17AM ; [facility] Nonorganic Sleep Apnea Obstructive Unknown M MILKA Vázquez FERNIE LEAD PHP DEVELOPER-FPA, MAILING MACHINE OPERATOR-BC Active Last Documented On 3 10:17AM ; [facility] Plan of Treatment Patient was seen today for multiple chronic unstable conditions of the musculoskeletal, spine, and central nervous system.Without treatment patient is at risk for significant functional limitations resulting in diminished quality of life and impaired age appropriate activities of daily living. Multiple documents have been reviewed in combination with today's evaluation including imaging studies, outside provider notes, laboratory data, patient self-report questionnaires, and [place] prescription monitoring database entries. Significant social barriers exist to compliance resulting in limited prognosis. Decision to proceed with interventional therapies was made at the time of today's visit. - Last Documented On 08/21/2023 10:17AM ; [facility] Instructions to patient Intervention and counseling on cessation of tobacco use : Patient recieved smoking cessation handout Last Documented On 4 9:52AM ; [facility] Education and Decision Aids were provided during visit for: Pill Count: six Xtampza Last Documented On 4 9:55AM ; [facility] Assessments Includes: Assessments from this encounter Findings - [M19.011 - Primary osteoarthritis, right shoulder] Localized primary osteoarthritis of right shoulder - Last Documented On 08/21/2023 10:17AM ; [facility] - [M16.11 - Unilateral primary osteoarthritis, right hip] Localized primary osteoarthritis of right hip - Last Documented On 08/21/2023 10:17AM ; [facility] - [M25.511 - Pain in right shoulder] Arthralgia of right shoulder region - Last Documented On 08/21/2023 10:17AM ; [facility] - [M47.892 - Other spondylosis, cervical region] Cervical spondylosis - Last Documented On 08/21/2023 10:17AM ; [facility] - [M47.896 - Other spondylosis, lumbar region] Lumbar spondylosis - Last Documented On 08/21/2023 10:17AM ; [facility] - [M54.50 - Low back pain, unspecified] Low back pain - Last Documented On 08/21/2023 10:17AM ; [facility] - [M48.061 - Spinal stenosis, lumbar region without neurogenic claudication] Lumbar stenosis without neurogenic claudication - Last Documented On 08/21/2023 10:17AM ; [facility] - [M54.2 - Cervicalgia] Cervicalgia - Last Documented On 08/21/2023 10:17AM ; [facility] - [M54.81 - Occipital neuralgia] Occipital neuralgia - Last Documented On 08/21/2023 10:17AM ; [facility] - [F33.1 - Major depressive disorder, recurrent, moderate] Moderate recurrent major depression - Last Documented On 08/21/2023 10:17AM ; [facility] - [G89.4 - Chronic pain syndrome] Chronic pain syndrome - Last Documented On 08/21/2023 10:17AM ; [facility] Instructions Includes: Instructions from this encounter Instructions to patient Intervention and counseling on cessation of tobacco use : Patient recieved smoking cessation handout Last Documented On 4 9:52AM ; [facility] Education and Decision Aids were provided during visit for: Pill Count: six Xtampza Last Documented On 4 9:55AM ; [facility] Medical Equipment - Implanted Devices Includes: Current Devices No Medical Equipment Recorded Medications Includes: Medications discussed during this encounter and other current Medications Discontinued / Stopped on this date FATOUMATA GRAFFBC on 08/04/2023 Xtampza ER 18 MG Oral Capsul e ER 12 Hour Abuse-Deterrent Provider: NANI CASTRO Diagnosis: Spinal stenosis, lumbar region without neurogenic gini Last Documented On 4 10:11AM By ZULEIMA CARDOZA ; [facility] HYDROcodone-Acetaminophen 7. 5-325 MG Oral Tablet Provider: FATOUMATA GRAFFBC Diagnosis: Other spondylosi s, cervical region Last Documented On 4 9:59AM By ZLUEIMA CARDOZA ; [facility] New / Renewed during this visit FATOUMATA GRAFFBC on 08/21/2023 Gabapentin 300 MG Oral Capsule Provider: FATOUMATA MAIBC 21 day supply: 63 capsule, 0 refills Diagnosis: Spinal stenosis, lumbar region without neurogenic gini 1 capsule three times a day Pharmacy: [place], [address] - Last Documented On 4 10:31AM By ZULEIMA CARDOZA ; [facility] Xtampza ER 18 MG Oral Capsul e ER 12 Hour Abuse-Deterrent Provider: ZULEIMA GARAY MAILING MACHINE OPERATOR-BC 30 day supply: 60 capsule, 0 refills Diagnosis: Spinal stenosis, lumbar region without neurogenic gini One tablet twice a day with food and water Pharmacy: [place], [address] - Last Documented On 4 10:31AM By ZULEIMA WANMAIRA ; [facility] tiZANidine HCl 2 MG Oral Tablet Provider: ZULEIMA LOVING MAILING MACHINE OPERATOR-MAIRA 14 day supply: 84 tablet, 0 refills Diagnosis: Other spondylosis, lumbar region take 1-2 three times daily a s needed for muscle spasm Pharmacy: [place], [address] - Last Documented On 4 10:31AM By [facility] ; [facility] Current Medications (continue as prescribed) oxyCODONE-Acetaminophen 7.5- 325 MG Oral Tablet 11/05/2023 Provider: ZULEIMA LOVING MAILING MACHINE OPERATOR-BC Diagnosis: One tablet three times a day as needed for severe pain every 6-8 hours Last Documented On 4 11:14AM By ZULEIMA WANMAIRA ; [facility] tiZANidine HCl 2 MG Oral Tablet 10/02/2023 Provider: SOCO MAI-BC Diagnosis: Other spondylosi s, lumbar region take 1-2 three times daily a s needed for muscle spasm Last Documented On 4 10:35AM By ZULEIMA WANMAIRA ; [facility] Gabapentin 300 MG Oral Capsule 10/02/2023 Provider: NANI MAI Diagnosis: Spinal stenosis, lumbar region without neurogenic gini 1 capsule three times a day Last Documented On 4 10:35AM By ZULEIMA CARDOZA ; [facility] Xtampza ER 18 MG Oral Capsul e ER 12 Hour Abuse-Deterrent 10/02/2023 Provider: NANI CASTRO Diagnosis: Spinal stenosis, lumbar region without neurogenic gini One tablet twice a day with food and water Last Documented On 4 10:35AM By ZULEIMA CARDOZA ; [facility] Narcan 4 MG/0.1ML Nasal Liquid 08/04/2023 Provider: NANI GRAFF Diagnosis: Spinal stenosis, lumbar region without neurogenic gini 1 spray intranasally for anthony pected overdose Last Documented On 4 10:04AM By ZULEIMA CARDOZA ; [facility] Lidocaine 5% External Patch 03/02/2023 Provider: NANI MAI Diagnosis: Primary osteoart hritis, right shoulder apply up to 3 patches daily to area of pain to R shoulder, neck, or low back and then remove for 12 hours Last Documented On 3 12:38PM By ZULEIMA CARDOZA ; [facility] Brian-Citrate Plus Vitamin D 250-2.5 MG-MCG Oral Tablet 11/29/2022 Provider: Diagnosis: Last Documented On 3 11:46AM By ZULEIMA CARDOZA ; [facility] Aspir-Low 81 MG Oral Tablet Delayed Release 09/09/2022 Provider: Diagnosis: Last Documented On 3 12:36PM By ZULEIMA CARDOZA ; [facility] Metoprolol Succinate ER 50 M G Oral Tablet Extended Release 24 Hour 09/05/2022 Provider: PRADEEP Lewis MD Diagnosis: Last Documented On 3 12:36PM By ZULEIMA CARDOZA ; [facility] Isosorbide Mononitrate ER 30 MG Oral Tablet Extended Release 24 Hour 07/04/2022 Provider: KWASI Carlton Diagnosis: Last Documented On 3 12:36PM By ZULEIMA CARDOZA ; [facility] Atorvastatin Calcium 40 MG Oral Tablet 07/04/2022 Pr ovider: KWASI OTERO MD Diagnosis: Last Documented On 3 12:36PM By ZULEIMA CARDOZA ; [facility] Nitroglycerin 0.4 MG Subling ual Tablet Sublingual 01/29/2022 Provider: KWASI OTERO MD Diagnosis: As needed. Last Documented On 3 12:36PM By ZULEIMA CARDOZA ; [facility] Medications Administered Includes: Administered Medications from this encounter No Administered Medications Recorded Vital Signs Includes: Vital Signs from this encounter Vital Name 08/21/2023 09:55A Temp-Oral (F) 98 Height (in) 67 Weight (lb) 245 Body Mass Index 38.4 Body Surface Area 2.2 Pain Level 5 Last Documented: On 08/21/2023 9:57AM ; [facility] Results Includes: Results discussed during this encounter No Results Recorded For Specified Dates History of Present Illness Includes: History of Present Illness from this encounter HPI PHQ-9 Score: 6 Date:09/09/2022PI Score: Date:Oswestry Score: 52% Date: 09/09/22SOAPP-R Score: 9 Date:09/09/2022ain Location: Cervical, thoracic and lumbar, R shoulder, R hipQuality: aches, sharp, dull. Radiation: Blt shoulder . [...] would like a referral to someone at [facility]. He also stopped Butrans stating it [...] He missed his shoulder injection w/ Dr Jain. He states there was just too much [...] and get records from [facility]. I will call today since our requests [...] orthopedic doctors through the [facility] [place] in [place]. He sees an orthopedic Dr Eaton for [...] inferior humeral neck. Moderately severe glenohumeral arthritis Social History Description Last Updated Tobacco non-user 03/10/2023 Last Documented On 4 9:52AM ; [facility] Chewing tobacco 09/09/2022 Last Documented On 4 9:52AM ; [facility] Difficulty walking 09/09/2022 Last Documented On 4 9:52AM ; [facility] No consumption of alcohol 09/09/2022 Last Documented On 4 9:52AM ; [facility] Not using drugs 09/09/2022 Last Documented On 4 9:52AM ; [facility] Non-smoker 02/01/2020 Last Documented On 4 9:52AM ; [facility] Smoking Status Unknown Procedures and Surgical History Includes: Procedures from this encounter Procedures Code Diagnosis Performing Provider Service Location Service Date CLINIC VISIT ([facility]IA [employer]) T1015 Other spondylosis, cervical region, Other spondylosis, lumbar region, Spinal stenosis, lumbar region without neurogenic gini, Primary osteoarthritis, right shoulder ZULEIMA G FERNIE LEAD PHP DEVELOPER-FPA, MAILING MACHINE OPERATOR-BC [facility] 08/21/2023 Last Documented On 4 2:19PM ; [facility] intervention and counseling on cessation of tobacco use : Patient recieved smoking cessation handout 4000F Last Documented On 4 9:52AM ; [facility] use of tobacco assessment performed 1000F Last Documented On 4 9:52AM ; [facility] review of medications documented 1160F Last Documented On 4 9:52AM ; [facility] screening for adult depression: impressi on and score 13 Last Documented On 4 9:53AM ; [facility] standardized depression scre ening tool for adolescent not completed contraindicated Last Documented On 4 9:52AM ; [facility] standardized depression screening: posit arnold for symptoms Last Documented On 4 9:53AM ; [facility] Reviewed & agreed to staff entries. Last Documented On 4 9:52AM ; [facility] Clinical summary provided to patient Last Documented On 4 9:52AM ; [facility] Surgical History Last Updated No Pacemaker 09/09/2022 Last Documented On 4 9:52AM ; [facility] Medical History Includes: Medical History addressed during this encounter Description Last Updated Chronic Hepatitis C w/ stage 1 Cirrhosis on BX ~BPH ~PVD ~IDALIA ~CAD ~Chronic Hip pain ~Chronic Flank Pain ~ ~Last Labs received 08/24/22: ~eGFR 78 ~Creatinine 1.09 ~AST 18 ~ALT 25 ~Alk Phos 66 ~Total Bili 1.1 ~Platelets 291 10/28/2022 Last Documented On 4 9:52AM ; [facility] History of hyperlipidemia 09/09/2022 Last Documented On 4 9:52AM ; [facility] History of systemic hypertension 023 Last Documented On 4 9:52AM ; [facility] Please list all surgeries: Hip replacmen t . 09/09/2022 Last Documented On 4 9:52AM ; [facility] Denies a fear of falling. 09/09/2022 Last Documented On 4 9:52AM ; [facility] Has had no fall in the last 12 months. 0 09/09/2022 Last Documented On 4 9:52AM ; [facility] Back brace 09/09/2022 Last Documented On 4 9:52AM ; [facility] CT/MRI Neck 10/0709/09/2022 Last Documented On 4 9:52AM ; [facility] Currently wearing eyeglasses 09/09/2022 Last Documented On 4 9:52AM ; [facility] Injection/Nerve blocks 09/09/2022 Last Documented On 4 9:52AM ; [facility] No Pain Pump 09/09/2022 Last Documented On 4 9:52AM ; [facility] No Spinal cord stimulator 09/09/2022 Last Documented On 4 9:52AM ; [facility] Pain Clinic 09/09/2022 Last Documented On 4 9:52AM ; [facility] Physical therapy 09/09/2022 Last Documented On 4 9:52AM ; [facility] Please list all illnesses/co nditions you have been diagnosed with: Microvascular disease 09/09/2022 Last Documented On 4 9:52AM ; [facility] Uses a cane for support 09/09/2022 Last Documented On 4 9:52AM ; [facility] X-rays Back shoulder neck hip 07/11 Last Documented On 4 9:52AM ; [facility] No previous psychiatric treatment 2019 Last Documented On 4 9:52AM ; [facility] Family History Includes: Family History addressed during this encounter Description Last Updated Fraternal history of family history of i schemic heart disease 09/09/2022 Last Documented On 4 9:52AM ; [facility] Maternal history of Arthritis 09/09/2022 Last Documented On 4 9:52AM ; [facility] Family history of cancer father 02/04/20 Last Documented On 4 9:52AM ; [facility] Family history of heart disease father 0 02/04/2020 Last Documented On 4 9:52AM ; [facility] Family medical history was unknown Mothe r, rhuematoid arthritis 02/04/2020 Last Documented On 4 9:52AM ; [facility] Review of Systems Includes: Review of Systems from this encounter Systemic: No systemic symptoms other then noted. [...] Skin: No skin symptoms other than noted. Mental Status Includes: Mental Status from this encounter Description [F33.1 - Major depressive di sorder, recurrent, moderate] moderate recurrent major depression Functional Status Includes: Functional Status from this encounter No Functional Status Recorded Physical Exam Includes: Physical Exam from this encounter Allergies Includes: Active Allergies Substance Type Reaction Onset Date Resolved Date Statu s Stadol Allergy 09/09/2022 Active Last Documented On 4 9:55AM ; [facility] Encounters Encounter Provider Location Date Check-In Time Check-Out Time Diagnosis TELEHEALTH ZULEIMA ENCISO LEAD PHP DEVELOPER-FPA, MAILING MACHINE OPERATOR-[facility] 9:52AM 10:05AM Cervical Spondylosis,Lupe mbar Spondylosis,Ch ronic Pain Syndrome,Cervi calgia,Neuralg ia Occipital,Meena r Depression Recurrent Moderate,Osteo arthritis Localized Primary Shoulder Right,Osteoart hritis Localized Primary Hip Right,Arthralg ia - Shoulder Region Right,Spinal Stenosis Lumbar Without Neurogenic Claudication,D orsopathy Low Back Pain Insurance Includes: Active Insurance Policies Plan Name Member ID Group # Subscriber Relationship Effect arnold Dates 1 - [facility] [id number] PRADEEP ROSE Self Clinical Notes Includes: Clinical Notes from this encounter * Progress note Date Encounter Last Documented by 08/21/2023 TELEHEALTH Last documented on 08/21/2023; 10:17 AM, ZULEIMA ENCISO APRN-FABIENNE, [facility]; [facility] Active Problems & Conditions [...] would like a referral to someone at [facility]. He also stopped Butrans stating it [...] He missed his shoulder injection w/ Dr Jain. He states there was just too much [...] and get records from [facility]. I will call today since our requests [...] orthopedic doctors through the [facility] [place] in [place]. He sees an orthopedic Dr Eaton for [...] Affect normal. No pain behaviors. Skin: Normal. [place], warm, dry. Assessment - [M19.011 - Primary [...] been appropriate. This and review of the [facility] database shows no evidence of misuse, [...] notes, laboratory data, patient self-report questionnaires, and [place] prescription monitoring database entries. Significant social barriers exist to compliance resulting in limited prognosis. Decision to proceed with interventional therapies was made at the time of today's visit. Practice Management Use of tobacco assessment performed Review of medications documented; Standardized depression screening: positive for symptoms Standardized depression screening tool for adolescent not completed contraindicated Screening for adult depression: impression and score 13; [01323] Established outpatient, medically appropriate H&P, moderate level [...] but may be subject to typographical or concrete pump operator errors. Verify all diagnoses, medications, dosages, and [...]
--- OUTSIDE RECORDS SUMMARY | 2024-08-03 01:17 | XMS_ITS ---
Author Organization Unknown Address [address] [place] [phone] Phone Care Team Providers Care Dj Instructor Name Role Phone SHANNA VILLALPANDO Attending Unavailable [...] em Smoking History Never smoker (Never Smoked) [id number] SNOMED CT Sex Male Assessment You had [...] VIRAL HEPATITIS C WITHOUT HEPATIC COMA active [id number] SNOMED- CT Plan of Treatment MRI Lumbar WO Contrast (29326) 07/01/19 24 Encounters Encounter Diagnosis Start Date Code Code Sys tem 06/11/2023 [id number] SNOMED-CT Personal Care Team Section Performer Name Performer Role Active Date Inactive Da te
--- OUTSIDE RECORDS SUMMARY | 2024-08-03 01:17 | XMS_ITS | Clinical Summary ---
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 Essential Hypertension 02/04/2020 KATIE L BLEV INS ANP-BC Active Last Documented On 0 2:44PM ; [facility] Left Hip Pain 02/04/2020 KATIE L JOLENE ANP-B C Active Last Documented On 0 2:44PM ; [facility] Chronic Low Back Pain 02/04/2020 KATIE L BLEVI NS ANP-BC Active Last Documented On 0 2:44PM ; [facility] Osteoarthritis 02/04/2020 KATIE L JOLENE ANP- BC Active Last Documented On 0 2:46PM ; [facility] Coronary Artery Disease Unknown ZULEIMA NEGRO LP ENVIRONMENTAL HEALTH TECHNICIAN-FPA, USER EXPERIENCE ARCHITECT-BC Active Last Documented On 3 10:18AM ; [facility] Obesity Unknown ZULEIMA NEGROLP ENVIRONMENTAL HEALTH TECHNICIAN-FPA, USER EXPERIENCE ARCHITECT-BC Active Last Documented On 3 10:17AM ; [facility] Nonorganic Sleep Apnea Obstructive Unknown M MILKA NANI BOOTH Active Last Documented On 3 10:17AM ; [facility] Plan of Treatment No Plan of Treatment Recorded Assessments Includes: Assessments from this encounter No Assessments Recorded Medical Equipment - Implanted Devices Includes: Current Devices No Medical Equipment Recorded Medications Includes: Medications discussed during this encounter and other current Medications New / Renewed during this visit FATOUMATA GRAFFBC on 11/05/2023 oxyCODONE-Acetaminophen 7.5- 325 MG Oral Tablet Provider: NANI GRAFF 30 day supply: 90 tablet, 0 refills Diagnosis: One tablet three times a day as needed for severe pain every 6-8 hours Pharmacy: [facility] Avin[facility] [place], [address] - Last Documented On 4 11:14AM By ZULEIMA CARDOZA ; [facility] Current Medications (continue as prescribed) tiZANidine HCl 2 MG Oral Tablet 10/02/2023 Provider: NANI MAI Diagnosis: Other spondylosi s, lumbar region take 1-2 three times daily a s needed for muscle spasm Last Documented On 4 10:35AM By ZULEIMA CARDOZA ; [facility] Gabapentin 300 MG Oral Capsule 10/02/2023 Provider: NANI MAI Diagnosis: Spinal stenosis, lumbar region without neurogenic gini 1 capsule three times a day Last Documented On 4 10:35AM By ZULEIMA CARDOZA ; [facility] Xtampza ER 18 MG Oral Capsul e ER 12 Hour Abuse-Deterrent 10/02/2023 Provider: NANI CASTRO Diagnosis: Spinal stenosis, lumbar region without neurogenic gini One tablet twice a day with food and water Last Documented On 4 10:35AM By ZULEIMA CARDOZA ; [facility] Narcan 4 MG/0.1ML Nasal Liquid 08/04/2023 Provider: NANI GRAFF Diagnosis: Spinal stenosis, lumbar region without neurogenic gini 1 spray intranasally for anthony pected overdose Last Documented On 4 10:04AM By ZULEIMA CARDOZA ; [facility] Lidocaine 5% External Patch 03/02/2023 Provider: NANI MAI Diagnosis: Primary osteoart hritis, right shoulder apply up to 3 patches daily to area of pain to R shoulder, neck, or low back and then remove for 12 hours Last Documented On 3 12:38PM By ZULEIMA CARDOZA ; [facility] Brian-Citrate Plus Vitamin D 250-2.5 MG-MCG Oral Tablet 11/29/2022 Provider: Diagnosis: Last Documented On 3 11:46AM By ZULEIMA CARDOZA ; [facility] Aspir-Low 81 MG Oral Tablet Delayed Release 09/09/2022 Provider: Diagnosis: Last Documented On 3 12:36PM By ZULEIMA CARDOZA ; [facility] Metoprolol Succinate ER 50 M G Oral Tablet Extended Release 24 Hour 09/05/2022 Provider: PRADEEP Lewis MD Diagnosis: Last Documented On 3 12:36PM By ZULEIMA CARDOZA ; [facility] Isosorbide Mononitrate ER 30 MG Oral Tablet Extended Release 24 Hour 07/04/2022 Provider: KWASI Carlton Diagnosis: Last Documented On 3 12:36PM By ZULEIMA CARDOZA ; [facility] Atorvastatin Calcium 40 MG Oral Tablet 07/04/2022 Pr ovider: KWASI OTERO MD Diagnosis: Last Documented On 3 12:36PM By ZULEIMA CARDOZA ; [facility] Nitroglycerin 0.4 MG Subling ual Tablet Sublingual 01/29/2022 Provider: KWASI OTERO MD Diagnosis: As needed. Last Documented On 3 12:36PM By ZULEIMA CARDOZA ; [facility] Medications Administered Includes: Administered Medications from this encounter No Administered Medications Recorded Results Includes: Results discussed during this encounter No Results Recorded For Specified Dates History of Present Illness Includes: History of Present Illness from this encounter No History of Present Illness Recorded Social History Description Last Updated Tobacco non-user 03/10/2023 Last Documented On 4 8:37AM ; [facility] Chewing tobacco 09/09/2022 Last Documented On 4 8:37AM ; [facility] Difficulty walking 09/09/2022 Last Documented On 4 8:37AM ; [facility] No consumption of alcohol 09/09/2022 Last Documented On 4 8:37AM ; [facility] Not using drugs 09/09/2022 Last Documented On 4 8:37AM ; [facility] Non-smoker 02/01/2020 Last Documented On 4 8:37AM ; [facility] Smoking Status Unknown Procedures and Surgical History Surgical History Last Updated No Pacemaker 09/09/2022 Last Documented On 4 8:37AM ; [facility] Medical History Includes: Medical History addressed during this encounter Description Last Updated Chronic Hepatitis C w/ stage 1 Cirrhosis on BX ~BPH ~PVD ~IDALIA ~CAD ~Chronic Hip pain ~Chronic Flank Pain ~ ~Last Labs received 08/24/22: ~eGFR 78 ~Creatinine 1.09 ~AST 18 ~ALT 25 ~Alk Phos 66 ~Total Bili 1.1 ~Platelets 291 10/28/2022 Last Documented On 4 8:37AM ; [facility] History of hyperlipidemia 09/09/2022 Last Documented On 4 8:37AM ; [facility] History of systemic hypertension 023 Last Documented On 4 8:37AM ; [facility] Please list all surgeries: Hip replacmen t . 09/09/2022 Last Documented On 4 8:37AM ; [facility] Denies a fear of falling. 09/09/2022 Last Documented On 4 8:37AM ; [facility] Has had no fall in the last 12 months. 0 09/09/2022 Last Documented On 4 8:37AM ; [facility] Back brace 09/09/2022 Last Documented On 4 8:37AM ; [facility] CT/MRI Neck 10/0709/09/2022 Last Documented On 4 8:37AM ; [facility] Currently wearing eyeglasses 09/09/2022 Last Documented On 4 8:37AM ; [facility] Injection/Nerve blocks 09/09/2022 Last Documented On 4 8:37AM ; [facility] No Pain Pump 09/09/2022 Last Documented On 4 8:37AM ; [facility] No Spinal cord stimulator 09/09/2022 Last Documented On 4 8:37AM ; [facility] Pain Clinic 09/09/2022 Last Documented On 4 8:37AM ; [facility] Physical therapy 09/09/2022 Last Documented On 4 8:37AM ; [facility] Please list all illnesses/co nditions you have been diagnosed with: Microvascular disease 09/09/2022 Last Documented On 4 8:37AM ; [facility] Uses a cane for support 09/09/2022 Last Documented On 4 8:37AM ; [facility] X-rays Back shoulder neck hip 07/11 Last Documented On 4 8:37AM ; [facility] No previous psychiatric treatment 2019 Last Documented On 4 8:37AM ; [facility] Family History Includes: Family History addressed during this encounter Description Last Updated Fraternal history of family history of i schemic heart disease 09/09/2022 Last Documented On 4 8:37AM ; [facility] Maternal history of Arthritis 09/09/2022 Last Documented On 4 8:37AM ; [facility] Family history of cancer father 02/04/20 20 Last Documented On 4 8:37AM ; [facility] Family history of heart disease father 0 02/04/2020 Last Documented On 4 8:37AM ; [facility] Family medical history was unknown Mothe r, rhuematoid arthritis 02/04/2020 Last Documented On 4 8:37AM ; [facility] Review of Systems Includes: Review of Systems [...] Active Last Documented On 4 9:55AM ; [facility] Encounters Encounter Provider Location Date Check-In Time Check-Out Time Diagnosis RX ISSUE/REFILL ZULEIMA Gurpreet ENCISO ENVIRONMENTAL HEALTH TECHNICIAN-FPA, USER EXPERIENCE ARCHITECT-BC 11/05/2023 8:37AM 11:59PM Insurance Includes: Active Insurance Policies Plan Name Member ID Group # Subscriber Relationship Effect arnold Dates 1 - [facility] [id number] PRADEEP ROSE Self Clinical Notes Includes: Clinical Notes from this encounter * Progress note Date Encounter Last Documented by 11/05/2023 RX ISSUE/REFILL Last documented on 11/05/2023; 10:22 AM, ZULEIMA ENCISO ENVIRONMENTAL HEALTH TECHNICIAN-FPA, USER EXPERIENCE ARCHITECT-BC; [facility] Active Problems & Conditions - Chronic Low [...] ~ pt phone # for Return call: [phone] ~Last Drug Screen:10/02/23 ~Date/Initials: 11/05/23 CB. Current [...]
--- OUTSIDE RECORDS SUMMARY | 2024-08-03 01:17 | XMS_ITS ---
Author Organization Unknown Address [address] [place] [phone] Phone Care Team Providers Care Build Master Name Role Phone SHANNA VILLALPANDO Attending Unavailable [...] quadrivalent, PF 03/01/2016 Completed 150 CVX Results COMPREHENSIVE METABOLIC PANE L - Collect Date/Time: 05/21/2024 09:45 [facility] ID: [id number] [address] [place] [address], [phone] LOINC: 22356-0 Test Value Unit Reference Range Code Code System Flag FASTING NO BUN 18 mg/dL L=7 H=20 3094-0 LOINC CREATININE 1.20 mg/dL L=0.66 H=1.25 2160-0 LOINC GLUCOSE 163 mg/dL L=74 H=106 2345-7 LOINC H SODIUM 138 mmol/L L=132 H=144 2951-2 LOINC POTASSIUM 4.0 mmol/L L=3.5 H=5.1 2823-3 LOINC CHLORIDE 105 mmol/L L=98 H=107 2075-0 LOINC CO2 23.0 mmol/L L=22.0 H=30.0 2027-9 LOINC ANION GAP 14 L=10 H=20 00361-8 LOINC OSMOLALITY 291 mOs/kG L=280 H=296 61767-7 LOINC BUN/CREAT 15.0 3097-3 LOINC CALCIUM 9.3 mg/dL L=8.3 H=10.5 68234-4 LOINC AST 26 U/L L=15 H=46 1920-8 LOINC ALT 30 U/L L=9 H=72 1742-6 LOINC ALKALINE PHOS 88 U/L L=38 H=126 6768-6 LOINC TOTAL BILI 0.8 mg/dL L=0.2 H=1.3 1975-2 LOINC ALBUMIN 4.5 G/dL L=3.5 H=5.0 1751-7 LOINC TOTAL PROTEIN 7.3 g/L L=6.3 H=8.2 2885-2 LOINC A/G RATIO 1.6 23691-9 LOINC AGE 63 34134-0 LOINC eGFR NON-AFR 65 ml/min eGFR AFR AMER 79 ml/min LIPID PANEL - Collect Date/T wanda: 05/21/2024 09:45 [facility] ID: [id number] [place], [place], [phone] LOINC: 23695-0 Test Value Unit Reference Range Code Code System Flag FASTING NO CHOLESTEROL 137 mg/dL L=0 H=200 2092-3 LOINC TRIGLYCERIDE 231 mg/dL L=0 H=150 2570-8 LOINC H HDL 51 mg/dL L=40 H=60 2084-9 LOINC LDL 67 mg/dL 2088- LOINC CBC W/O DIFF - Collect Date/ Time: 05/21/2024 09:45 [facility] ID: [id number] [place], [phone] LOINC: 07489-6 Test Value Unit Reference Range Code Code System Flag WBC 10.4 10^3uL L=4.8 H=10.8 RBC 5.87 10^6uL L=4.60 H=6.20 HEMOGLOBIN 17.2 g/dL L=14.0 H=18.0 718-7 LOINC HEMATOCRIT 50.7 VOL% L=42.0 H=52.0 4544-3 LOINC MCV 86.4 fL L=80.0 H=94.0 MCH 29.3 pg L=27.0 H=32.0 MCHC 33.9 g/dL L=32.0 H=36.0 PLATELETS 275 10^3uL L=100 H=400 47103-3 LOINC RDW 12.6 % L=11.7 H=15.5 URINALYSIS w/Microscopy - Co llect Date/Time: 05/21/2024 09:45 [facility] ID: [id number] [address] [place], [place], [phone] LOINC: 65215-2 Test Value Unit Reference Range Code Code System Flag UR SOURCE CLEAN CATCH 81843-8 LOINC COLOR YELLOW YELLOW 5778-6 LOINC CLARITY CLEAR CLEAR 68647-8 LOINC SPEC GRAVITY 1.025 1.000-1.030 5811-5 LOINC PH 5.5 5.0 - 6.5 5803-2 LOINC LEUK EST NEGATIVE NEGATIVE 5799-2 LOINC NITRATE NEGATIVE NEGATIVE PROTEIN NEGATIVE NEGATIVE 5804-0 LOINC GLUCOSE NEGATIVE NEGATIVE 10574-4 LOINC KETONES NEGATIVE NEGATIVE 20994-7 LOINC UROBILINOGEN 0.2 0.2 - 1.0 5818-0 LOINC BILIRUBIN NEGATIVE NEGATIVE 72984-0 LOINC BLOOD 2+ NEGATIVE 52430-3 LOINC WBC 0-2 0 - 2 39918-6 LOINC RBC 0-2 0 - 2 99341-8 LOINC EPITHELIAL RARE RARE-FEW 24797-5 LOINC BACTERIA NONE SEEN NONE SEEN 22656-5 LOINC MUCUS 1+ NONE SEEN 8247-9 LOINC YEAST NOT PRESENT NOT PRESENT 83740-5 LOINC TRICHOMONAS NOT PRESENT NOT PRESENT 49857-1 LOINC SPERMATOZOA NOT PRESENT NOT PRESENT 87815-5 LOINC CASTS NOT PRESENT 16389-9 LOINC CRYSTALS NOT PRESENT 89583-2 LOINC PSA-SCREENING - Collect Date /Time: 05/21/2024 09:45 [facility] ID: [id number] [place] [address], [id number] LOINC: 2857-1 Test Value Unit Reference Range Code Code System Flag PSA SCREEN 3.4 ng/mL L=0.0 H=4.0 2857-1 LOINC TSH - Collect Date/Time: 07/2024 09:45 [facility] ID: [id number] [address] [place] [address], [phone] LOINC: 03797-0 Test Value Unit Reference Range Code Code System Flag TSH. 0.993 uIU/L L=0.470 H=4.680 56738-6 LOINC HGB A1C -GLYCOHEMOGLOBIN - C ollect Date/Time: 05/21/2024 09:45 [facility] ID: [id number] [address] [place] [address], [phone] LOINC: 4548-4 Test Value Unit Reference Range Code Code System Flag HGBA1C 6.0 % 4548-4 LOINC Social History Type Status Start Date End Date Code Code Syst em Smoking History Never smoker (Never Smoked) 848727246 SNOMED CT Sex Male Assessment You had [...] VIRAL HEPATITIS C WITHOUT HEPATIC COMA active 23322370 SNOMED- CT Plan of Treatment MRI Lumbar WO Contrast (32853) 07/01/19 24 Encounters Encounter Diagnosis Start Date Code Code Sys tem Atherosclerotic heart diseas e of [place] coronary artery without angina pectoris 05/21/2024 SNOMED-CT Personal Care Team Section Performer Name Performer Role Active Date Inactive Da te
--- OUTSIDE RECORDS SUMMARY | 2024-08-03 01:17 | XMS_ITS | Clinical Summary ---
Author Organization [facility] Address [address] [place] [address] Phone Care Team Providers Care Helmet Coverer Name Role Phone KWASI OTERO MD Primary Care Provider [phone] Reason for Visit and Chief Complaint The Chief Complaint is: Follow up after 08/21/2023 Problems Includes: Problems addressed during this encounter and other active Problems All Visits Onset Date Resolved Date Provider Condition S tatus Gerd 02/04/2020 KATIE L JOLENE ANP-BC A ctive Last Documented On 0 2:45PM ; [facility] Hyperlipidemia 02/04/2020 KATIE L JOLENE ANP- BC Active Last Documented On 0 2:46PM ; [facility] Essential Hypertension 02/04/2020 KATIE L BLEV INS ANP-BC Active Last Documented On 0 2:44PM ; [facility] Left Hip Pain 02/04/2020 KATIE L JOLENE ANP-B C Active Last Documented On 0 2:44PM ; [facility] Chronic Low Back Pain 02/04/2020 KATIE L BLEVI NS ANP-BC Active Last Documented On 0 2:44PM ; [facility] Osteoarthritis 02/04/2020 KATIE L JOLENE ANP- BC Active Last Documented On 0 2:46PM ; [facility] Coronary Artery Disease Unknown ZULEIMA G KU LP SPEECH COACH-FPA, MAIN LINE ASSEMBLER-BC Active Last Documented On 3 10:18AM ; [facility] Obesity Unknown ZULEIMA G FERNIE SPEECH COACH-FPA, MAIN LINE ASSEMBLER-BC Active Last Documented On 3 10:17AM ; [facility] Nonorganic Sleep Apnea Obstructive Unknown Jones ENCISO SPEECH COACH-FPA, MAIN LINE ASSEMBLER-BC Active Last Documented On 3 10:17AM ; [facility] Plan of Treatment Patient [...] notes, laboratory data, patient self-report questionnaires, and [place] prescription monitoring database entries. Significant social barriers exist to compliance resulting in limited prognosis. Decision to proceed with interventional therapies was made at the time of today's visit. - Last Documented On 10/03/2023 10:10AM ; [facility] Urine sample ordered and sent to lab for testing with confirmation via LCMS when appropriate. Urine drug testing is ordered to monitor opioid use and ongoing candidacy, verify compliant use of controlled substances, and monitor for use of illicit substances as these may result in harmful interactions. - Last Documented On 10/03/2023 10:10AM ; [facility] Instructions to patient Intervention and counseling on cessation of tobacco use : Patient recieved smoking cessation handout Last Documented On 4 9:47AM ; [facility] Education and Decision Aids were provided during visit for: Pill Count: 0 Xtampza [state s he was sick for 2 weeks and wasn't taking it: last dose yesterday morning] Last Documented On 4 10:33AM ; [facility] Assessments Includes: Assessments from this encounter Findings - [M19.011 - Primary osteoarthritis, right shoulder] Localized primary osteoarthritis of right shoulder - Last Documented On 10/03/2023 10:10AM ; [facility] - [M16.11 - Unilateral primary osteoarthritis, right hip] Localized primary osteoarthritis of right hip - Last Documented On 10/03/2023 10:10AM ; [facility] - [M25.511 - Pain in right shoulder] Arthralgia of right shoulder region - Last Documented On 10/03/2023 10:10AM ; [facility] - [M47.892 - Other spondylosis, cervical region] Cervical spondylosis - Last Documented On 10/03/2023 10:10AM ; [facility] - [M47.896 - Other spondylosis, lumbar region] Lumbar spondylosis - Last Documented On 10/03/2023 10:10AM ; [facility] - [M54.50 - Low back pain, unspecified] Low back pain - Last Documented On 10/03/2023 10:10AM ; [facility] - [M48.061 - Spinal stenosis, lumbar region without neurogenic claudication] Lumbar stenosis without neurogenic claudication - Last Documented On 10/03/2023 10:10AM ; [facility] - [M54.2 - Cervicalgia] Cervicalgia - Last Documented On 10/03/2023 10:10AM ; [facility] - [M54.81 - Occipital neuralgia] Occipital neuralgia - Last Documented On 10/03/2023 10:10AM ; [facility] - [F33.1 - Major depressive disorder, recurrent, moderate] Moderate recurrent major depression - Last Documented On 10/03/2023 10:10AM ; [facility] - [G89.4 - Chronic pain syndrome] Chronic pain syndrome - Last Documented On 10/03/2023 10:10AM ; [facility] Instructions Includes: Instructions from this encounter Instructions to patient Intervention and counseling on cessation of tobacco use : Patient recieved smoking cessation handout Last Documented On 4 9:47AM ; [facility] Education and Decision Aids were provided during visit for: Pill Count: 0 Xtampza [state s he was sick for 2 weeks and wasn't taking it: last dose yesterday morning] Last Documented On 4 10:33AM ; [facility] Medical Equipment - Implanted Devices Includes: Current Devices No Medical Equipment Recorded Medications Includes: Medications discussed during this encounter and other current Medications Discontinued / Stopped on this date MAYCO EATON MD on 07/29/2023 Gabapentin 100 MG Oral Capsule Provider: MAYCO EATON MD Diagnosis: Last Documented On 10:02AM By [employer] ; [facility] New / Renewed during this visit ZULEIMA ENCISO SPEECH COACH-FPA, MAIN LINE ASSEMBLER-BC on 10/02/2023 tiZANidine HCl 2 MG Oral Tablet Provider: YAMINI MAIP-BC 90 day supply: 540 tablet, 0 refills Diagnosis: Other spondylosis, lumbar region take 1-2 three times daily a s needed for muscle spasm Pharmacy: [place], [address] - Last Documented On 4 10:35AM By ZULEIMA CARDOZA ; [facility] Gabapentin 300 MG Oral Capsule Provider: ZULEIMA LOVING MAIN LINE ASSEMBLER-BC 90 day supply: 270 capsule, 0 refills Diagnosis: Spinal stenosis, lumbar region without neurogenic gini 1 capsule three times a day Pharmacy: [place], [address] - Last Documented On 4 10:35AM By ZULEIMA KCMAIRA ; [facility] Xtampza ER 18 MG Oral Capsul e ER 12 Hour Abuse-Deterrent Provider: ZULEIMA GARAY MAIN LINE ASSEMBLER- 30 day supply: 60 capsule, 0 refills Diagnosis: Spinal stenosis, lumbar region without neurogenic gini One tablet twice a day with food and water Pharmacy: [place], [address] - Last Documented On 4 10:35AM By [facility] ; [facility] Current Medications (continue as prescribed) oxyCODONE-Acetaminophen 7.5- 325 MG Oral Tablet 11/05/2023 Provider: SOCO MAI-MAIRA Diagnosis: One tablet three times a day as needed for severe pain every 6-8 hours Last Documented On 4 11:14AM By ZULEIMA WANMAIRA ; [facility] Narcan 4 MG/0.1ML Nasal Liquid 08/04/2023 Provider: SOCO GRAFF-BC Diagnosis: Spinal stenosis, lumbar region without neurogenic gini 1 spray intranasally for anthony pected overdose Last Documented On 4 10:04AM [facility] ; [facility] Lidocaine 5% External Patch 03/02/2023 Provider: NANI MAI Diagnosis: Primary osteoart hritis, right shoulder apply up to 3 patches daily to area of pain to R shoulder, neck, or low back and then remove for 12 hours Last Documented On 3 12:38PM By ZULEIMA KCMAIRA ; [facility] Brian-Citrate Plus Vitamin D 250-2.5 MG-MCG Oral Tablet 11/29/2022 Provider: Diagnosis: Last Documented On 3 11:46AM [facility] ; [facility] Aspir-Low 81 MG Oral Tablet Delayed Release 09/09/2022 Provider: Diagnosis: Last Documented On 3 12:36PM By ZULEIMA KCMAIRA ; [facility] Metoprolol Succinate ER 50 M G Oral Tablet Extended Release 24 Hour 09/05/2022 Provider: PRADEEP Lewis MD Diagnosis: Last Documented On 3 12:36PM By ZULEIMA ENCISO [facility] ; [facility] Isosorbide Mononitrate ER 30 MG Oral Tablet Extended Release 24 Hour 07/04/2022 Provider: KWASI Carlton Diagnosis: Last Documented On 3 12:36PM [facility] ; [facility] Atorvastatin Calcium 40 MG Oral Tablet 07/04/2022 Pr ovider: KWASI OTERO MD Diagnosis: Last Documented On 3 12:36PM By [facility] ; [facility] Nitroglycerin 0.4 MG Subling ual Tablet Sublingual 01/29/2022 Provider: KWASI OTERO MD Diagnosis: As needed. Last Documented On 3 12:36PM By ZULEIMA CARDOZA ; [facility] Medications Administered Includes: Administered Medications from this encounter No Administered Medications Recorded Vital Signs Includes: Vital Signs from this encounter Vital Name 10/02/2023 10:05A Blood Pressure Sitting R 138/82 BP Cuff Size Regular Pulse Rate-Sitting (bpm) 66 Temp-Oral (F) 96.2 Height (in) 67 Weight (lb) 235 Body Mass Index 36.8 Body Surface Area 2.2 Pain Level 7 Oxygen Saturation (%) 96 Last Documented: On 10/02/2023 10:07A M ; [facility] Results Includes: Results discussed during this encounter No Results Recorded For Specified Dates History of Present Illness Includes: History of Present Illness from this encounter HPI PHQ-9 Score: 13 Date:08/04/2023PI Score: Date:Oswestry Score: 66% Date: 08/04/2023SOAPP-R Score: 9 Date:09/09/2022ain Location: Cervical, thoracic and [...] would like a referral to someone at [facility]. He also stopped Butrans stating it [...] and get records from [facility]. I will call today since our requests [...] orthopedic doctors through the [facility] [place] in [place]. He sees an orthopedic Dr Eaton for [...] Tobacco non-user 03/10/2023 Last Documented On 4 9:47AM ; [facility] Chewing tobacco 09/09/2022 Last Documented On 4 9:47AM ; [facility] Difficulty walking 09/09/2022 Last Documented On 4 9:47AM ; [facility] No consumption of alcohol 09/09/2022 Last Documented On 4 9:47AM ; [facility] Not using drugs 09/09/2022 Last Documented On 4 9:47AM ; [facility] Non-smoker 02/01/2020 Last Documented On 4 9:47AM ; [facility] Smoking Status Unknown Procedures and Surgical History Includes: Procedures from this encounter Procedures Code Diagnosis Performing Provider Service Location Service Date CLINIC VISIT T1015 Other spondylosi s, cervical region, Other spondylosis, lumbar region, Spinal stenosis, lumbar region without neurogenic gini, Cervicalgia ZULEIMA G FERNIE SPEECH COACH-FPA, MAIN LINE ASSEMBLER-BC [facility] 10/02/2023 Last Documented On 4 12:50PM ; [facility] intervention and counseling on cessation of tobacco use : Patient recieved smoking cessation handout 4000F Last Documented On 4 9:47AM ; [facility] use of tobacco assessment performed 1000F Last Documented On 4 9:47AM ; [facility] review of medications documented 1160F Last Documented On 4 9:47AM ; [facility] screening for adult depression: impressi on and score 13 Last Documented On 4 9:47AM ; [facility] standardized depression scre ening tool for adolescent not completed contraindicated Last Documented On 4 9:47AM ; [facility] standardized depression screening: posit arnold for symptoms Last Documented On 4 9:47AM ; [facility] Reviewed & agreed to staff entries. Last Documented On 4 9:47AM ; [facility] Clinical summary provided to patient Last Documented On 4 9:47AM ; [facility] Surgical History Last Updated No Pacemaker 09/09/2022 Last Documented On 4 9:47AM ; [facility] Medical History Includes: Medical History addressed during this encounter Description Last Updated Chronic Hepatitis C w/ stage 1 Cirrhosis on BX ~BPH ~PVD ~IDALIA ~CAD ~Chronic Hip pain ~Chronic Flank Pain ~ ~Last Labs received 08/24/22: ~eGFR 78 ~Creatinine 1.09 ~AST 18 ~ALT 25 ~Alk Phos 66 ~Total Bili 1.1 ~Platelets 291 10/28/2022 Last Documented On 4 9:47AM ; [facility] History of hyperlipidemia 09/09/2022 Last Documented On 4 9:47AM ; [facility] History of systemic hypertension 023 Last Documented On 4 9:47AM ; [facility] Please list all surgeries: Hip replacmen t . 09/09/2022 Last Documented On 4 9:47AM ; [facility] Denies a fear of falling. 09/09/2022 Last Documented On 4 9:47AM ; [facility] Has had no fall in the last 12 months. 0 09/09/2022 Last Documented On 4 9:47AM ; [facility] Back brace 09/09/2022 Last Documented On 4 9:47AM ; [facility] CT/MRI Neck 10/0709/09/2022 Last Documented On 4 9:47AM ; [facility] Currently wearing eyeglasses 09/09/2022 Last Documented On 4 9:47AM ; [facility] Injection/Nerve blocks 09/09/2022 Last Documented On 4 9:47AM ; [facility] No Pain Pump 09/09/2022 Last Documented On 4 9:47AM ; [facility] No Spinal cord stimulator 09/09/2022 Last Documented On 4 9:47AM ; [facility] Pain Clinic 09/09/2022 Last Documented On 4 9:47AM ; [facility] Physical therapy 09/09/2022 Last Documented On 4 9:47AM ; [facility] Please list all illnesses/co nditions you have been diagnosed with: Microvascular disease 09/09/2022 Last Documented On 4 9:47AM ; [facility] Uses a cane for support 09/09/2022 Last Documented On 4 9:47AM ; [facility] X-rays Back shoulder neck hip 07/11 Last Documented On 4 9:47AM ; [facility] No previous psychiatric treatment 2019 Last Documented On 4 9:47AM ; [facility] Family History Includes: Family History addressed during this encounter Description Last Updated Fraternal history of family history of i schemic heart disease 09/09/2022 Last Documented On 4 9:47AM ; [facility] Maternal history of Arthritis 09/09/2022 Last Documented On 4 9:47AM ; [facility] Family history of cancer father 09/18/20 20 Last Documented On 4 9:47AM ; [facility] Family history of heart disease father 0 02/04/2020 Last Documented On 4 9:47AM ; [facility] Family medical history was unknown Moth er, rhuematoid arthritis 02/04/2020 Last Documented On 4 9:47AM ; [facility] Review of Systems Includes: Review of Systems [...] Active Last Documented On 4 9:55AM ; [facility] Encounters Encounter Provider Location Date Check-In Time Check-Out Time Diagnosis PAIN MANAGEMENT FOLLOW UP ZULEIMA ENCISO SPEECH COACH-FPA, MAIN LINE ASSEMBLER-BC [facility] 10/02/19 24 9:32AM 10:34AM Cervical Spondylosis,Lupe mbar Spondylosis,Ch ronic Pain Syndrome,Cervi calgia,Neuralg ia Occipital,Meena r Depression Recurrent Moderate,Osteo arthritis Localized Primary Shoulder Right,Osteoart hritis Localized Primary Hip Right,Arthralg ia - Shoulder Region Right,Spinal Stenosis Lumbar Without Neurogenic Claudication,D orsopathy Low Back Pain Insurance Includes: Active Insurance Policies Plan Name Member ID Group # Subscriber Relationship Effect arnold Dates 1 - [facility] [id number] PRADEEP ROSE Self Clinical Notes Includes: Clinical Notes from this encounter * Progress note Date Encounter Last Documented by 10/02/2023 PAIN MANAGEMENT FOLLOW UP Last d ocumented on 10/03/2023; 10:10 AM, ZULEIMA ENCISO SPEECH COACH-FPA, MAIN LINE ASSEMBLER-BC; [facility] Active Problems & Conditions [...] would like a referral to someone at [facility]. He also stopped Butrans stating it [...] and get records from [facility]. I will call today since our requests [...] orthopedic doctors through the [facility] [place] in [place]. He sees an orthopedic Dr Eaton for [...] Affect normal. No pain behaviors. Skin: Normal. [place], warm, dry. Assessment - [M19.011 - Primary [...] been appropriate. This and review of the [facility] database shows no evidence of misuse, [...] disruptions in their dosing.. 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 Significant social barriers [...] for adult depression: impression and score 13; [82056] Established outpatient, medically appropriate H&P, moderate level [...] but may be subject to typographical or finishing frame runner errors. Verify all diagnoses, medications, dosages, and [...]
--- OUTSIDE RECORDS SUMMARY | 2024-08-03 01:17 | XMS_ITS ---
Care Plan - [facility] Created on: August 03, 2024 PRADEEP ROSE : 1960 Sex: Male Author Organization [facility] Address [address] [place] [address] Phone Care Team Providers Care Ethnic Origins Teacher Name Role Phone KWASI OTERO MD Primary Care Provider [phone]
--- OUTSIDE RECORDS SUMMARY | 2024-08-03 01:17 | XMS_ITS ---
Author Organization Unknown Address [address] [place] [phone] Phone Care Team Providers Care Drug And Alcohol Counsellor Name Role Phone SHANNA VILLALPANDO Attending Unavailable [...] em Smoking History Never smoker (Never Smoked) [id number] SNOMED CT Sex Male Assessment You had [...] VIRAL HEPATITIS C WITHOUT HEPATIC COMA active [id number] SNOMED- CT Plan of Treatment MRI Lumbar WO Contrast (53628) 07/01/19 24 Encounters Encounter Diagnosis Start Date Code Code Sys tem 06/20/2023 [id number] SNOMED-CT Personal Care Team Section Performer Name Performer Role Active Date Inactive Da te
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
--- NOTE | 2024-08-03 01:26 | ECG_ITS ---
Test Date: 2024-08-03 01:16:51 Measurements Intervals Spencer Rate: 69 P: 8 AK: 171 QRS: 51 QRSD: 102 T: 21 QT: 401 QTc: 432 Interpretive Statements SINUS RHYTHM No previous ECG available for comparison Electronically Signed On 08-03-2024 16:22:52 CDT by Torres Grier M.D.
[2024-08-03 01:37] LABS: Eosinophils Absolute Auto 0.25 K/mm3 (0.02-0.50); Eosinophils Percent Auto 2.5 % (1.0-6.0); Hematocrit 49.9 % (40.0-54.0); Hemoglobin 16.4 g/dL (14.0-18.0); Immature Granulocyte Absolute 0.06 K/mm3 (0.00-0.00); Immature Granulocyte Percent A 0.6 % (0.0-0.0); Lymphocytes Absolute Auto 4.26 K/mm3 (1.10-4.50); Lymphocytes Percent Auto 42.1 % (18.0-42.0); Mean Corpuscular HGB Conc 32.9 g/dL (32-36); Mean Corpuscular Hemoglobin 28.5 pg (27.0-31.0); Mean Corpuscular Volume 86.6 fL (78.0-102.0); Mean Platelet Volume 10.1 fl (8.7-11.0); Monocytes Absolute Auto 1.07 K/mm3 (0.10-0.90); Monocytes Percent Auto 10.6 % (2.0-11.0); Neutrophils Absolute Auto 4.39 K/mm3 (1.70-7.20); Neutrophils Percent Auto 43.2 % (50.0-70.0); Platelet Count Result 280 K/mm3 (150-420); Red Blood Count 5.76 M/mm3 (4.70-6.10); Red Cell Distribution Width 12.8 % (11.6-14.4); White Blood Count 10.1 K/mm3 (4.8-10.8)
[2024-08-03] MEDS: ASPIRIN 81 MG CHEWABLE TABLET 324 MG PO (01:38)
[2024-08-03] MEDS: LORazepam INJ (*CRX) 2 MG/ML VIAL 1 MG IV PUSH (01:38)
[2024-08-03 01:54] LABS: Prothrombin Time 10.7 Seconds (9.50-12.1)
[2024-08-03 01:55] LABS: Base Excess ABG -2.8 mmol/L (0-2); HCO3 ABG 20.4 mmol/L (23-29); Oxygen Saturation ABG 94.4 % (95-97); Oxyhemoglobin 93.7 % (94-100); PCO2 ABG 31.8 mmHg (35-45); PO2 ABG 71.8 mmHg (80-90); pH ABG 7.42 (7.35-7.45)
[2024-08-03 01:57] LABS: Device ROOM AIR; Modified Allen's Test Pass; Site Drawn RIGHT RADIAL
--- NOTE | 2024-08-03 01:58 | PC.NURSE ---
Pt resting, continuing to monitor, POC discussed w/ pt about probable transfer need to his resident medical officer in [place], Pt updated on wait time for lab tests/results. Pt stated understanding to POC.
--- OUTSIDE RECORDS SUMMARY | 2024-08-03 02:00 | XMS_ITS | Encounter Summary ---
Author Organization [facility] - [facility] Address [address] [place] [address] Care Team Providers Care Clinical Office Technician Name Role Phone Patrice Ledesma MD Primary Care Provider [phone] Kevin Long MD Unavailable UnavailItz Deleon MD Unavailable UnavailLizzie Pantoja NP Unavailable Unavailable Tamiko Anaya APRN MANAGING PARTNER-C Unavailable Encounter Details Date Type Department Care Team (Late st Contact Info) Description 06/24/2018 Abstract [facility] [address] [place] [address] Abstract, Doc [facility] Social History Tobacco Use Types Packs/Day Years Used Date Smoking Tobacco: Never Smokeless Tobacco: Current Chew Last attempted to quit: 11/08/1985 Alcohol Use Standard Drinks/Week Comments Yes 0 (1 standard drink = 0.6 oz pur e alcohol) rarely Sex and Gender Information Value Date Recorded Sex Assigned at Not on file Legal Sex Male 9:00 PM CDT Gender Identity Not on file Sexual Orientation Not on file 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 Not on file Not on file N ot on file documented as of this encounter Plan of Treatment Not on file documented as of this encounter Visit Diagnoses Not on filedocumented in this encounter Care Teams Clinical Office Technician Relationship Specialty Start Date End Date Patrice Ledesma MD [address] [place] [address] PCP - General INTERNAL MEDICINE 11/30/15 Kevin Long MD [address] [place] [address] [place] Patient Observer CARDIOVASCULAR DISEASE 11/30/15 Itz Han MD [address] [place] [address] EP Patient Observer CLINICAL CARDIAC ELECTROPHYSIOLOGY 09/12/16 Lizzie Washington NP [address] [place] [address] Electrophysiology 03/26/17 Tamiko Anaya, CULINARY MANAGER, MANAGING PARTNER-C [address] [facility] [address] [place] [address] NURSE PRACTITIONER 10/17/20 documented as of this encounter
--- OUTSIDE RECORDS SUMMARY | 2024-08-03 02:00 | XMS_ITS | Encounter Summary ---
Author Organization [facility] - [facility] Address [facility]ly [facility] [place] [address] Care Team Providers Care Dry Drug Worker Name Role Phone Patrice Ledesma MD Primary Care Provider Kevin Long MD Unavailable UnavailItz Deleon MD Unavailable UnavailLizzie Pantoja NP Unavailable Unavailable Tamiko Anaya APRN COLOR COATER-C Unavailable Encounter Details Date Type Department Care Team (Late st Contact Info) Description 08/02/2017 Abstract [facility] [address] [place] [address] , Generic ConversionMD Social History Tobacco Use Types Packs/Day Years Used Date Smoking Tobacco: Never Smokeless Tobacco: Current Chew Last attempted to quit: 11/08/1985 Alcohol Use Standard Drinks/Week Comments No 0 [...] on filedocumented in this encounter Care Teams Dry Drug Worker Relationship Specialty Start Date End Date Patrice Ledesma MD [address] [place] [address] PCP - General INTERNAL MEDICINE 11/30/15 Kevin Long MD [address] [place] [address] [place] [employer] Distribution Manager CARDIOVASCULAR DISEASE 11/30/15 Itz Han MD [address] [place] [address] EP Warehouse Distribution Manager CLINICAL CARDIAC ELECTROPHYSIOLOGY 09/12/16 Lizzie Washington NP [address] [place] [address] Electrophysiology 03/26/17 Tamiko Anaya, [employer]CHO[employer] VOLLEYBALL COACH, COLOR COATER-C [address] [facility] [address] [place] [address] NURSE PRACTITIONER 10/17/20 documented as of this encounter
--- OUTSIDE RECORDS SUMMARY | 2024-08-03 02:00 | XMS_ITS | Encounter Summary ---
Author Organization [facility] - [facility] Address [address] [place] [address] Care Team Providers Care Girl Friday Name Role Phone Patrice Ledesma MD Primary Care Provider Kevin Long MD Unavailable UnavailItz Deleon MD Unavailable UnavailLizzie Pantoja NP Unavailable Unavailable Tamiko Anaya APRN GLASS MOLD REPAIRER-C Unavailable [phone] Encounter Details Date Type Department Care Team (Late st Contact Info) Description 11/03/2018 Abstract [employer] [facility] [place] [address] Abstract, Doc [facility] Social History Tobacco Use [...] on filedocumented in this encounter Care Teams Girl Friday Relationship Specialty Start Date End Date Patrice Ledesma MD [address] [place] [address] PCP - General INTERNAL MEDICINE 11/30/15 Kevin Long MD [address] [place] [address] [place] Financial Analyst Accountant CARDIOVASCULAR DISEASE 11/30/15 Itz Han MD [address] [place] [address] EP Financial Analyst Accountant CLINICAL CARDIAC ELECTROPHYSIOLOGY 09/12/16 Lizzie Washington NP [address] [place] [address] Electrophysiology 03/26/17 Tamiko Anaya, SANTOSH, GLASS MOLD REPAIRER-C [address] [facility] [address] [place] [address] NURSE PRACTITIONER 10/17/20 documented as of this encounter
--- OUTSIDE RECORDS SUMMARY | 2024-08-03 02:00 | XMS_ITS | Encounter Summary ---
Author Organization [facility] - [facility] Address [facility] [place] [address] Care Team Providers Care Food Consultant Name Role Phone Patrice Ledesma MD Primary Care Provider [phone] Kevin Long MD Unavailable UnavailItz Deleon MD Unavailable UnavailLizzie Pantoja NP Unavailable Unavailable Tamiko Anaya APRN ADJUNCT PHLEBOTOMY INSTRUCTOR-C Unavailable Encounter Details Date Type Department Care Team (Late st Contact Info) Description 10/24/2018 Abstract [facility] [address] [place] [address] , Generic Conversion, Social History Tobacco Use Types Packs/Day Years [...] on filedocumented in this encounter Care Teams Food Consultant Relationship Specialty Start Date End Date Patrice Ledesma MD [address] [place] [address] PCP - General INTERNAL MEDICINE 11/30/15 Kevin Long MD [address] [place] [address] [place] Dye Jig Operator CARDIOVASCULAR DISEASE 11/30/15 Itz Han MD [address] [place] [address] EP Dye Jig Operator CLINICAL CARDIAC ELECTROPHYSIOLOGY 09/12/16 Lizzie Washington NP [address] [place] [address] Electrophysiology 03/26/17 Tamiko Anaya, FOREST FIRE PREVENTION MANAGER, ADJUNCT PHLEBOTOMY INSTRUCTOR-C [address] [facility] [address] [place] [address] NURSE PRACTITIONER 10/17/20 documented as of this encounter
--- OUTSIDE RECORDS SUMMARY | 2024-08-03 02:00 | XMS_ITS | Referral Summary ---
Author Organization [facility] Address [address] [place] [address] Care Team Providers Care Senior Research Scientist Name Role Phone Patrice Ledesma MD Primary Care Provider [phone] Source Comments [facility],non-owned Affiliates and Associated Physician Practices is amultiple site organization consisting of ambulatory clinics and hospital sitesin [place], [place], [place] and [place]. This disclosure is being madepursuant to the Care Everywhere program and may not contain all information available regarding this patient. Last updated 18.[facility] [employer] Allergies Active Allergy Reactions Criticality Noted Date [...] 99.8 kg (220 lb) 04/30/2017 10:26 AM COMPARATOR OPERATOR Height 171.5 cm (5' 7.5 ) 04/30/2017 10:26 AM CS T Body Mass Index 33.95 04/30/2017 10:26 AM COMPARATOR OPERATOR Functional Status Functional Status Response Date [...] on file Medical Devices Implanted Type Area Mirror Specialist Device Identifier Shelf Expiration Date Model / Serial / Lot Shell Acetab 3hole 56mm Implanted:Qty: 1 on 02/29/2016 by Derrek Deleon MD at [facility] Left: Hip [employer] 08/02/2025 [id number] / / [id number] 40mm Acetabular Screw Implanted:Qty: 1 on 02/29/2016 by Derrek Deleon MD at [facility] Left: Hip [employer] 09/16/2024 [id number] / / [id number] Liner Actb R3 0d 56mm 36mm Xlpe Hip Strl Implanted:Qty: 1 on 02/29/2016 by Derrek Deleon MD at [facility] Left: Hip [employer] 05/29/2025 [id number] / / [id number] Size 10 Femoral Component Implanted:Qty: 1 on 02/29/2016 by Derrek Deleon MD at [facility] Left: Hip [employer] 07/24/2025 [id number] / / [id number] 36 Mm Femoral Head Implanted:Qty: 1 on 02/29/2016 by Derrek Deleon MD at [facility] Left: Hip [employer] 11/06/2025 [id number] / / [id number] Luke Uncem Hip All Inclusive Implanted:Qty: 1 on 02/29/2016 by Derrek Deleon MD at [facility] [employer] BILL ONLY [employer] HIP ALL INCLUSIVE SNORTH / / Advance Directives * Full Code (Latest Code Status on File) Date Activated Date Inactivated Comments 02/29/2016 4:21 PM 03/02/2016 1:21 PM Care Teams Senior Research Scientist Relationship Specialty Start Date End Date Patrice Ledesma MD [address] [place], [place] [id number] PCP - General Internal Medicine 11/30/13
--- OUTSIDE RECORDS SUMMARY | 2024-08-03 02:00 | XMS_ITS | Encounter Summary ---
Author Organization [facility] - [facility] Address [facility] [place] [address] Care Team Providers Care Special Effects Specialist Name Role Phone Patrice Ledesma MD Primary Care Provider Kevin Long MD Unavailable Itz Zhang MD Unavailable Lizzie Elder NP Unavailable Unavailable Tamiko Anaya APRN SEWER PIPE SORTER-C Unavailable Encounter Details Date Type Department Care Team (Latest Contact Info) Description 02/12/2018 Abstract [facility] , Emma Trinh MD Social History Tobacco Use Types Packs/Day Years [...] on filedocumented in this encounter Care Teams Special Effects Specialist Relationship Specialty Start Date End Date Patrice Ledesma MD [address] [place] [address] PCP - General INTERNAL MEDICINE 11/30/15 Kevin Long MD [address] [place] [address] [place] Children'S Aide CARDIOVASCULAR DISEASE 11/30/15 Itz Han MD [address] [place] [address] EP Children'S Aide CLINICAL CARDIAC ELECTROPHYSIOLOGY 09/12/16 Lizzie Washington NP [address] [place] [address] Electrophysiology 03/26/17 Tamiko Anaya APRN, SEWER PIPE SORTER-C [address] [facility] [address] [place] [address] NURSE PRACTITIONER 10/17/20 documented as of this encounter
--- OUTSIDE RECORDS SUMMARY | 2024-08-03 02:00 | XMS_ITS | Clinical Summary ---
Author Organization [facility] [employer] Address [address] [place] [address] Care Team Providers Care Bullet Maker Name Role Phone Patrice Ledesma MD Primary Care Provider [phone] Source Comments [facility] [employer],non-owned Affiliates and Associated Physician Practices is amultiple site organization consisting of ambulatory clinics and hospital sitesin [place], [place], [place] and [place]. This disclosure is being madepursuant to the Care Everywhere program and may not contain all information available regarding this patient. Last updated 18.[facility] [employer] Allergies Active Allergy Reactions Criticality Noted Date [...] 99.8 kg (220 lb) 04/30/2017 10:26 AM MEDICAL CARE ADMINISTRATOR Height 171.5 cm (5' 7.5 ) 04/30/2017 10:26 AM CS T Body Mass Index 33.95 04/30/2017 10:26 AM MEDICAL CARE ADMINISTRATOR Plan of Treatment Health Maintenance Due Date [...] this topic Medical Devices Implanted Type Area Deputy Director Of Finance Device Identifier Shelf Expiration Date Model / Serial / Lot Shell Acetab 3hole 56mm Implanted:Qty: 1 on 02/29/2016 by Derrek Deleon MD at [facility] Left: Hip [employer] 08/02/2025 [id number] / / [id number] 40mm Acetabular Screw Implanted:Qty: 1 on 02/29/2016 by Derrek Deleon MD at [facility] named [facility] Left: Hip [employer] 09/16/2024 [id number] / / [id number] Liner Actb R3 0d 56mm 36mm Xlpe Hip Strl Implanted:Qty: 1 on 02/29/2016 by Derrek Deleon MD at [facility] named [facility] Left: Hip [employer] 05/29/2025 [id number] / / [id number] Size 10 Femoral Component Implanted:Qty: 1 on 02/29/2016 by Derrek Deleon MD at [facility] named [facility] Left: Hip [employer] 07/24/2025 [id number] / / [id number] 36 Mm Femoral Head Implanted:Qty: 1 on 02/29/2016 by Derrek Deleon MD at [facility] named [facility] Left: Hip [employer] 11/06/2025 [id number] / / [id number] Luke Uncem Hip All Inclusive Implanted:Qty: 1 on 02/29/2016 by Derrek Deleon MD at [facility] named [facility] [employer] BILL ONLY [employer] ALL INCLUSIVE SNORTH / / Advance Directives * Full Code (Latest Code Status on File) Date Activated Date Inactivated Comments 02/29/2016 4:21 PM 03/02/2016 1:21 PM Care Teams Bullet Maker Relationship Specialty Start Date End Date Patrice Ledesma MD [address] [place] [address] PCP - General Internal Medicine 11/30/13
[2024-08-03 02:01] LABS: Alanine Aminotransferase 37 U/L (16-63); Albumin Level 3.9 g/dL (3.4-5.0); Alkaline Phosphatase 101 U/L (46-116); Anion Gap 8 mmol/L (4-12); Aspartate Amino Transferase 19 U/L (15-37); Bilirubin,Total 0.7 mg/dL (0.00-1.00); Blood Urea Nitrogen 23 mg/dL (7-18); Calcium 8.6 mg/dL (8.5-10.1); Carbon Dioxide 27 mmol/L (21-32); Chloride 106 mmol/L (98-108); Estimated CRCL calculation 56 ml/min; Estimated Glomerular Filt Rate 49; Glucose 99 mg/dL (70-99); Magnesium 1.9 mg/dL (1.8-2.4); NT Pro B Type Natriuretic Pept 16 pg/mL (0-125); Osmolality Calculated 295 mOsm/kg (285-295); Potassium 3.8 mmol/L (3.5-5.1); Sodium 141 mmol/L (136-145); Total Protein 7.5 g/dL (6.4-8.2)
--- OUTSIDE RECORDS SUMMARY | 2024-08-03 02:01 | XMS_ITS | Encounter Summary ---
Author Organization [facility] Address [facility] [place] [address] Care Team Providers Care Intellectual Property Counsel Name Role Phone Patrice Ledesma MD Primary Care Provider Kevin Long MD Unavailable UnavailItz Deleon MD Unavailable UnavailLizzie Pantoja NP Unavailable Unavailable Tamiko Anaya APRN, NP-C Unavailable Encounter Details Date Type Department Care Team (Late st Contact Info) Description 12/05/2015 [facility] [address] [place] [id number] Kevin Long MD Social History Tobacco Use Types Packs/Day Years Used Date Smoking Tobacco: Former Smokeless Tobacco: Former Chew Quit: 11/08/1985 Sex and Gender Information Value Date Recorded [...] on file documented as of this encounter Procedures Procedure Name Priority Date/Time Associated Diagnosis Comments BASIC METABOLIC PANEL Routine 12/04/2015 documented in this encounter Results * BASIC METABOLIC PANEL (12/04/2015) SODIUM S/P/B 141 POTASSIUM S/P/B 3.9 CO2 22 CHLORIDE S/P/B 105 GLUCOSE 94 CALCIUM S/P/B 8.9 BUN 18 CREATININE S/P/B 1.5 MAGNESIUM 1.7 INR 1.01 WBC 8.8 RBC 5.4 HEMOGLOBIN MIXED VENOUS 15.7 13 - 18 g/dL POC HEMATOCRIT 45.9 PLATELET COUNT 259 12/04/2015 us Doc [facility] Abstract LABORATORY Final Result documented in this encounter Visit Diagnoses Not on filedocumented in this encounter Care Teams Intellectual Property Counsel Relationship Specialty Start Date End Date Patrice Ledesma MD [address] [place] [address] PCP - General INTERNAL MEDICINE 11/30/15 Kevin Long MD [address] [place] [address] [place] Rn Charge CARDIOVASCULAR DISEASE 11/30/15 Itz Han MD [address] [place] [address] EP Rn Charge CLINICAL CARDIAC ELECTROPHYSIOLOGY 09/12/16 Lizzie Washington NP [address] [place] [address] Electrophysiology 03/26/17 Tamiko Anaya APRN, METALLURGICAL LABORATORY ASSISTANT-C [address] [facility] [address] [place] [address] NURSE PRACTITIONER 10/17/20 documented as of this encounter
--- OUTSIDE RECORDS SUMMARY | 2024-08-03 02:01 | XMS_ITS | Encounter Summary ---
Author Organization [facility] - [facility] Address [address] [place] [address] Care Team Providers Care Tank Setter Name Role Phone Patrice Ledesma MD Primary Care Provider Kevin Long MD Unavailable Itz Zhang MD Unavailable UnavailLizzie Pantoja NP Unavailable Unavailable Tamiko Anaya APRN WAFER POLISHER-C Unavailable Encounter Details Date Type Department Care Team (Late st Contact Info) Description 11/29/2015 Abstract [facility] [address] [place] [address] Kevin Long MD Social History Tobacco Use [...] on filedocumented in this encounter Care Teams Tank Setter Relationship Specialty Start Date End Date Patrice Ledesma MD [address] [place] [address] PCP - General INTERNAL MEDICINE 11/30/15 Kevin Long MD [address] [place] [address] Paulina Bass Viol Repairer CARDIOVASCULAR DISEASE 11/30/15 Itz Han MD [address] [place] [address] EP Bass Viol Repairer CLINICAL CARDIAC ELECTROPHYSIOLOGY 09/12/16 Lizzie Washington NP [address] [place] [address] Electrophysiology 03/26/17 Tamiko Anaya APRN, WAFER POLISHER-C [address] [facility] [address] [place] [address] NURSE PRACTITIONER 10/17/20 documented as of this encounter
--- OUTSIDE RECORDS SUMMARY | 2024-08-03 02:01 | XMS_ITS | Patient Health Summary ---
Author Organization [facility] Address [address] [place] [address] Care Team Providers Care Wire Spiral Binder Name Role Phone Patrice Ledesma MD Primary Care Provider [phone] Note from [facility],non-owned Affiliates and Associated Physician Practices is amultiple site organization consisting of ambulatory clinics and hospital sitesin [place], [place], [place] and [place]. This disclosure is being madepursuant to the Care Everywhere program and may not contain all information available regarding this patient. Last updated 18.[facility] Allergies * Butorphanol(Itching) Medications * Be [...] 99.8 kg (220 lb) 04/30/2017 10:26 AM MANUFACTURER'S REPRESENTATIVE Height 171.5 cm (5' 7.5 ) 04/30/2017 10:26 AM CS T Body Mass Index 33.95 04/30/2017 10:26 AM MANUFACTURER'S REPRESENTATIVE Medical Devices Implanted Type Area Pool Attendant Device Identifier Shelf Expiration Date Model / Serial / Lot Shell Acetab 3hole 56mm Implanted:Qty: 1 on 02/29/2016 by Derrek Deleon MD at [facility] Left: Hip [employer] 08/02/2025 [id number] / / [id number] 40mm Acetabular Screw Implanted:Qty: 1 on 02/29/2016 by Derrek Deleon MD at [facility] Left: Hip [employer] 09/16/2024 [id number] / / [id number] Liner Actb R3 0d 56mm 36mm Xlpe Hip Strl Implanted:Qty: 1 on 02/29/2016 by Derrek Deleon MD at [facility] Left: Hip [employer] 05/29/2025 [id number] / / [id number] Size 10 Femoral Component Implanted:Qty: 1 on 02/29/2016 by Derrek Deleon MD at [facility] Left: Hip [employer] 07/24/2025 [id number] / / [id number] 36 Mm Femoral Head Implanted:Qty: 1 on 02/29/2016 by Derrek Deleon MD at [facility] Left: Hip [employer] 11/06/2025 [id number] / / [id number] Uncem Hip All Inclusive Implanted:Qty: 1 on 02/29/2016 by Derrek Deleon MD at [facility] [employer] BILL ONLY [...] W LEFT HIP 2VW (04/30/2017 10:44 AM MANUFACTURER'S REPRESENTATIVE) Only the most recent of5 resultswithin the time period is included. Anatomical Region Laterality Modality Radiographic Pura ging 04/30/2017 10:5 0 AM MANUFACTURER'S REPRESENTATIVE Impressions 04/30/2017 10:51 AM MANUFACTURER'S REPRESENTATIVE Left total hip arthroplasty in unchanged near anatomic position. Narrative 04/30/2017 10:51 AM MANUFACTURER'S REPRESENTATIVE Examination: Left hip minimum 2 views with [...] wedging. Report dictated by Britany Bloom M.D. (radiology administrator). I, Dr. NICK العراقي M.D. have personally reviewed and interpreted this examination/study. This report was electronically signed by NICK العراقي M.D. on 08/21/2016 11:39 AM . Narrative 08/21/2016 11:39 AM CDT Exam: 1. Entire spine, 8 views 2. Lumbar spine, 2 views Date: 08/21/2016 8:34 AM History: Low back pain. Comparison: MRI of the lumbar spine done at [facility] on 06/16/2014. Findings: Entire spine: There are [...] MRI of the lumbar spine done at [facility] on 06/16/2014. Findings: Entire spine: There are [...] congenitalwedging. Report dictated by Britany Bloom M.D. (radiology administrator). I, Dr. NICK العراقي M.D. have personally [...] wedging. Report dictated by Britany Bloom M.D. (radiology administrator). I, Dr. NICK العراقي M.D. have personally reviewed and interpreted this examination/study. This report was electronically signed by NICK العراقي M.D. on 08/21/2016 11:39 AM . Narrative 08/21/2016 11:39 AM CDT Exam: 1. Entire spine, 8 views 2. Lumbar spine, 2 views Date: 08/21/2016 8:34 AM History: Low back pain. Comparison: MRI of the lumbar spine done at [facility] on 06/16/2014. Findings: Entire spine: There are [...] MRI of the lumbar spine done at [facility] on 06/16/2014. Findings: Entire spine: There are [...] congenitalwedging. Report dictated by Britany Bloom M.D. (radiology administrator). I, Dr. NICK العراقي M.D. have personally reviewed and interpreted thisexamination/study. This report was electronically signed by NICK العراقي M.D. on 08/21/201611:39 AM . Kevin Austin MD DIAGNOSTIC IMAGING O RDERABLES * XR FEMUR 2 VW LEFT (04/03/2016 10:12 AM MANUFACTURER'S REPRESENTATIVE) Anatomical Region Laterality Modality Lower Extremity Radiographic Pura ging 04/03/2016 12:0 1 PM MANUFACTURER'S REPRESENTATIVE Impressions 04/03/2016 12:04 PM MANUFACTURER'S REPRESENTATIVE Unchanged left total hip arthroplasty with a nondisplaced fracture involving the posterior cortex of the proximal left femoral shaft. Narrative 04/03/2016 12:04 PM MANUFACTURER'S REPRESENTATIVE Examination: 1. Pelvis and left hip 2-3 [...] - 10.7 x10E9/L 03/02/2016 7:03 AM CDT [facility] WBC Corrected x10E9/L 03/02/2016 7:03 AM CDT [facility] RBC 3.25(L) 3.80 - 5.40 x10E12/L 03/02/2016 7:03 AM CDT [facility] Hemoglobin 9.6(L) 12.0 - 17.6 gm/dL 03/02/2016 7:03 AM CDT [facility] Hematocrit 27.9(L) 35.2 - 51.7 % 03/02/2016 7:03 AM CDT [facility] MCV 85.8 80.7 - 98.3 fl 03/02/2016 7:03 AM CDT [facility] MCH 29.5 26.7 - 34.0 pg 03/02/2016 7:03 AM CDT [facility] MCHC 34.4 30.8 - 35.9 gm/dL 03/02/2016 7:03 AM CDT [facility] Platelet Count 178 153 - 416 x10E9/L 03/02/2016 7:03 AM CDT [facility] RDW-CV 13.0 12.1 - 14.9 % 03/02/2016 7:03 AM CDT [facility] MPV 11.0 9.4 - 12.9 fl 03/02/2016 7:03 AM CDT [facility] Neutrophils % 51.4 44.0 - 73.0 % 03/02/2016 7:03 AM CDT [facility] Lymphocytes % 32.3 20.0 - 43.0 % 03/02/2016 7:03 AM CDT [facility] Monocytes % 13.6(H) 5.0 - 13.0 % 03/02/2016 7:03 AM CDT [facility] Eosinophils % 1.7 0.0 - 6.0 % 03/02/2016 7:03 AM CDT [facility] Basophils % 0.7 0.0 - 2.0 % 03/02/2016 7:03 AM CDT [facility] Immature Granulocytes 0.3 0 - 1 % 03/02/2016 7:03 AM CDT [facility] Neutrophil Absolute 4.52 2.01 - 7.14 x10E9/L 03/02/2016 7:03 AM CDT [facility] Lymphocytes Absolute 2.84 1.07 - 3.94 x10E9/L 03/02/2016 7:03 AM CDT [facility] Monocytes Absolute 1.20(H) 0.26 - 1.07 x10E9/L 03/02/2016 7:03 AM CDT [facility] Eosinophils Absolute 0.15 0 - 0.47 x10E9/L 03/02/2016 7:03 AM CDT [facility] Basophils Absolute 0.06 0 - 0.08 x10E9/L 03/02/2016 7:03 AM CDT [facility] Immature Granulocytes Absolute 0.03 0.00 - 0.06 x10E9/L 03/02/2016 7:03 AM CDT [facility] nRBC Auto 0 /100 WBC 03/02/2016 7:03 AM CDT [facility] Blood BLOOD SPECIMEN / Unknown 03/02/2016 3:09 AM CDT 03/02/2016 6:59 AM CDT Marlin Barclay MD LAB - HEMATOLOGY ORD ERABLES [facility] [address] [place] [address] * CT LOWER EXTREMITY NON CONTRAST LEFT [...] CDT 03/01/2016 3:02 AM CDT Kayce Gan APRN-WIRE STRAIGHTENER LAB - CHEMISTRY OR DERABLES Performing Organization Address City/[facility]/ZIP Co de Phone Number [facility] [address] [place] [address] * BLOOD TYPE VERIFICATION (02/29/2016 9:55 AM CDT) ABO O 02/29/2016 10:46 AM CDT [facility] Rh Type Negative 02/29/2016 10:46 AM CDT [facility] Miscellaneous samples (specimen) BLOOD SPECIMEN / Unknown Venipuncture / Unknown 02/29/2016 9:55 AM CDT 02/29/2016 10:23 AM CDT Derrek Deleon MD LAB - BLOOD BANK OR DERABLES Performing Organization Address City/[facility] Co de Phone Number [facility] [address] [place] [address] * TYPE + SCREEN PANEL (02/29/2016 9:55 AM CDT) [facility] ABO O 02/29/2016 10:57 AM CDT [facility] Rh Type Negative 02/29/2016 10:57 AM CDT [facility] Comment:History check perfor med. No retype required. Antibody Screen Negative 02/29/2016 10:57 AM CDT [facility] Miscellaneous samples (specimen) BLOOD SPECIMEN / Unknown Venipuncture / Unknown 02/29/2016 9:55 AM CDT 02/29/2016 10:05 AM CDT Felix Bull MD LAB - BLOOD BANK ORD ERABLES Performing Organization Address City/[facility]/ZIP Co de Phone Number [facility] [address] [place] [address] * CULTURE MSSA/MRSA (02/08/2016 10:17 AM CDT) Culture Negative for MRSA/MSSA DAVID 02/10/2016 5:46 AM CDT [facility] MICROBIOLOGY Microbiology SPECIMEN FROM NASAL FOSSAE / Unknown Collection / Unknown 02/08/2016 10:17 AM CDT 02/08/2016 10:30 AM CDT Derrek Deleon MD LAB - MICROBIOLOGY ORDERABLES [facility] MICROBIOLOGY [address] [place] [phone] * URINALYSIS ROUTINE W/REFLEX TO CULTURE (02/08/2016 10:17 AM CDT) Color UA Yellow Straw, Yellow, Dark Yellow 02/08/2016 10:44 AM CDT [facility] Clarity UA Clear 02/08/2016 10:44 AM CDT [facility] Specific [place] UA 1.024 1.005 - 1.030 02/08/2016 10:44 AM CDT [facility] pH UA 5.0 5.0 - 8.0 pH 02/08/2016 10:44 AM CDT [facility] Protein UA Negative Negative 02/08/2016 10:44 AM CDT [facility] Blood UA Negative Negative 02/08/2016 10:44 AM CDT [facility] Leukocyte UA Negative Negative 02/08/2016 10:44 AM CDT [facility] Nitrite UA Negative Negative 02/08/2016 10:44 AM CDT [facility] Glucose UA Negative Negative 02/08/2016 10:44 AM CDT [facility] Ketone UA Negative Negative 02/08/2016 10:44 AM CDT [facility] Bilirubin UA Negative Negative 02/08/2016 10:44 AM CDT [facility] Urobilinogen UA 0.2 0.1 - 1.0 EU/dL 02/08/2016 10:44 AM T [facility] Reflex Status Culture not indicated 02/08/2016 10:44 AM T [facility] Urine URINE SPECIMEN OBTAINED BY CLEAN CATCH PROCEDURE / Unknown Collection / Unknown 02/08/2016 10:17 AM CDT 02/08/2016 10:30 AM CDT Derrek Deleon MD LAB - URINALYSIS OR DERABLES [facility] [address] [place] [address] * TRANSFERRIN (02/08/2016 10:17 AM CDT) Transferrin 218 215 - 365 mg/dL 02/08/2016 11:04 AM CDT [facility] Blood BLOOD SPECIMEN / Unknown Venipuncture / Unknown 02/08/2016 10:17 AM CDT 02/08/2016 10:30 AM CDT Derrek Deleon MD LAB - CHEMISTRY ORD ERABLES Performing Organization Address [facility] Co de Phone Number [facility] [address] [place], [place] [id number] * (ABNORMAL) BASIC METABOLIC PANEL (CALCIUM TOTAL) (02/08/2016 10:17 AM CDT) Glucose 98 74 - 106 mg/dL 02/08/2016 11:04 AM [facility] Sodium 141 136 - 145 mmol/L 02/08/2016 11:04 AM [facility] Potassium 3.9 3.5 - 5.1 mmol/L 02/08/2016 11:04 AM [facility] Chloride 109(H) 98 - 107 mmol/L 02/08/2016 11:04 AM [facility] CO2 26 22 - 31 mmol/L 02/08/2016 11:04 AM [facility] Calcium 8.3(L) 8.5 - 10.1 mg/dL 02/08/2016 11:04 AM [facility] Anion Gap 6 5 - 20 mmol/L 02/08/2016 11:04 AM [facility] BUN 21 7 - 21 mg/dL 02/08/2016 11:04 AM [facility] Creatinine 1.10 0.50 - 1.30 mg/dL 02/08/2016 11:04 AM [facility] eGFR by MDRD >60 >60 mL/min/1.7 3m2 02/08/2016 11:04 AM [facility] eGFR by MDRD >60 >60 mL/min/1.7 3m2 02/08/2016 11:04 AM CDT [facility] Blood BLOOD SPECIMEN / Unknown Venipuncture / Unknown 02/08/2016 10:17 AM CDT 02/08/2016 10:30 AM CDT Derrek Deleon MD LAB - CHEMISTRY ORD ERABLES Performing Organization Address City/[facility] Co de Phone Number [facility] [address] [place] [address] * ALBUMIN BLOOD (02/08/2016 10:17 AM CDT) [facility] Signature Albumin 3.7 3.4 - 5.0 gm/dL 02/08/2016 11:04 AM CDT [facility] Blood BLOOD SPECIMEN / Unknown Venipuncture / Unknown 02/08/2016 10:17 AM CDT 02/08/2016 10:30 AM CDT Derrek Deleon MD LAB - CHEMISTRY ORD ERABLES Performing Organization Address [facility] Co de Phone Number [facility] [address] [place] [id number] * XR HIP 2+ VW LEFT (12/07/2013 10:22 AM CDT) Anatomical Region Laterality Modality Pelvis, Lower Extremity [facility] 12/07/2013 10:2 5 AM CDT [...] MD DIAGNOSTIC IMAGING O RDERABLES Care Teams Wire Spiral Binder Relationship Specialty Start Date End Date Patrice Ledesma MD [address] [id number] PCP - General Internal Medicine 11/30/13
--- OUTSIDE RECORDS SUMMARY | 2024-08-03 02:01 | XMS_ITS | Encounter Summary ---
Author Organization [facility] Address [facility] [place] [address] Care Team Providers Care Psychologist Industrial Organizational Name Role Phone Patrice Ledesma MD Primary Care Provider Kevin Long MD Unavailable Itz Zhang MD Unavailable UnavailLizzie Pantoja NP Unavailable Unavailable Tamiko Anaya APRN BAG FILLER-C Unavailable Encounter Details Date Type Department Care Team (Late st Contact Info) Description 11/09/2015 Abstract [facility] AT [address] [address] Kevin Long MD Social History Tobacco Use [...] Procedure Name Priority Date/Time Associated Diagnosis Comments CMP (OUTSIDE LAB) Routine 08/03/2015 documented in this encounter Results * CMP (OUTSIDE LAB) (08/03/2015) SODIUM S/P/B 141 POTASSIUM S/P/B 4.1 CHLORIDE S/P/B 104 CO2 21 BUN 19 CREATININE S/P/B 1.11 EGFR AFR. AMER. 87 EGFR NON-AFR. AMER. 75 CALCIUM S/P/B 9.3 GLUCOSE 82 TOTAL PROTEIN S/P/B 7.8 ALBUMIN S/P/B 4.8 3.5 - 5.0 AST 33 ALT 43 ALKALINE PHOSPHATASE S/P/B 76 BILIRUBIN TOTAL S/P/B 0.9 08/03/2015 Patrice Ledesma MD LAB-OUTSIDE/ABSTRACTED Final Re sult documented in this encounter Visit Diagnoses Not on filedocumented in this encounter Care Teams Psychologist Industrial Organizational Relationship Specialty Start Date End Date Patrice Ledesma MD [address] [place] [address] PCP - General INTERNAL MEDICINE 11/30/15 Kevin Long MD [address] [place] [address] [place] Customer Care Team Coach CARDIOVASCULAR DISEASE 11/30/15 Itz Han MD [address] [place] [address] EP Customer Care Team Coach CLINICAL CARDIAC ELECTROPHYSIOLOGY 09/12/16 Lizzie Washington, ISAURA [address] [place] [address] Electrophysiology 03/26/17 Tamiko Anaya APRN, BAG FILLER-C [address] [facility] [address] [place] [phone] NURSE PRACTITIONER 10/17/20 documented as of this encounter
--- OUTSIDE RECORDS SUMMARY | 2024-08-03 02:01 | XMS_ITS | Clinical Summary ---
Author Organization [facility] Address [facility] [place] [address] Care Team Providers Care Corrections Unit Supervisor Name Role Phone Patrice Ledesma MD Primary Care Provider Kevin Long MD Unavailable UnavailItz Deleon MD Unavailable UnavailLizzie Pantoja NP Unavailable Unavailable Tamiko Anaya APRN, OCCUP THER-C Unavailable Allergies Active Allergy Reactions Criticality Noted Date Comments Butorphanol Unknown,Itching Low 12/07/2013 unspecified Medications atorvastatin (LIPITOR) 40 MG tablet Take 1 tablet (40 mg total) by mouth daily. 07/04/2022 Active isosorbide mononitrate ER (IMDUR) 30 MG 24 hr tablet 1 tablet (30 mg total) daily. 07/04/2022 Active metoprolol succinate ER (TOPROL-XL) 25 MG 24 hr tablet Take 1 tablet (25 mg total) by mouth daily. 07/04/2022 Active nitroglycerin (NITROSTAT) 0.[address] 1 tablet (0.4 mg total) under the tongue every 5 (five) minutes as needed. 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 Class 1 obesity 08/26/2016 Degenerative arthritis of spine 08/26/2016 Degenerative arthritis of hip 08/21/2016 Precordial pain 04/10/2016 Abnormal nuclear stress test 04/10/2016 Hypertension 04/10/2016 Erectile dysfunction 04/10/2016 Hyperlipidemia 04/10/2016 Hepatitis C virus infection 12/07/2013 Coxitis 12/07/2013 Resolved Problems Problem Noted Date Diagnosed Date Resolved Date CPAP use counseling 08/13/2017 01/28/20 20 Encounter for preventive health examination 04/28/2017 04/27/2018 Family History Medical History Relation Comments Heart Attack Brother Cancer Father CHF Mother Relation Status Comments Brother (Age 60) VA Father (Age 60) Cancer Mother (Age 65) CHF Social History Tobacco Use Types Packs/Day Years [...] Not on file N ot on file Last Filed Vital Signs Vital Sign Reading Time Taken Comments Blood Pressure 142/94 07/30/2022 9:30 AM CDT Pulse 84 07/30/2022 9:30 AM CDT Temperature 36.8 C (98.3 F) 07/30/2022 9:14 AM CDT Respiratory Rate 12 07/30/2022 9:30 AM CDT Oxygen Saturation 98% 07/30/2022 11:15 AM CDT Inhaled Oxygen Concentration - - Weight 109 kg (240 lb 4.8 oz) 07/30/2022 9:14 AM CDT Height 170.2 cm (5' 7 ) 07/30/2022 9:14 AM CDT Body Mass Index 37.64 07/30/2022 9:14 AM CDT Plan of Treatment Health Maintenance Due Date Last Done Comments ASCVD LDL 1961 ASCVD Statin 1961 Colorectal Cancer Screening Colonoscopy (10 Years) 1961 Annual Physical 1964 Zoster Vaccines (1 of 2) 10/22/2011 RSV Immunization or 60+ Years (1 - Risk 60-74 years 1-dose series) 2021 COVID-19 Vaccine ( - 2024-25 season) 2024 Influenza Adult (#1) 2024 07/08/2017, 03/01/2016, 03/29/2014, Additional history exists Pneumococcal Vaccine: Pediatrics (0 to 5 Years) and At-Risk Patients (6 to 64 Years) (3 of 3 - PPSV23 or PCV20) 2026 09/24/2016, 06/02/2014 DTaP, Tdap and Td Vaccines (3 - Td or Tdap) 08/24/2027 08/23/2017, 11/05/2011 Hepatitis C Completed 01/15/2018, 11/2016, 12/07/2013, Additional history exists Meningococcal B Vaccine Aged Out No l onger eligible based on patient's age to complete this topic Meningococcal Vaccine Aged Out No flor tiara eligible based on patient's age to complete this topic RSV Immunizations Under 20 Months Aged Out No longer eligible based on patient's age to complete this topic Insurance [facility] C/O PROVIDER SERVICES ASHLEE MUNOZ [id number] Care Teams Corrections Unit Supervisor Relationship Specialty Start Date End Date Patrice Ledesma MD [address] [place] [address] PCP - General INTERNAL MEDICINE 11/30/15 Kevin Long MD [address] [place] [address] [place] Lab Tester CARDIOVASCULAR DISEASE 11/30/15 Itz Han MD [address] [place] [address] EP Lab Tester CLINICAL CARDIAC ELECTROPHYSIOLOGY 09/12/16 Lizzie Washington NP [address] [place] [address] Electrophysiology 03/26/17 Tamiko Anaya, STUNT WOMAN, OCCUP THER-C [address] [facility] [address] [place] [phone] NURSE PRACTITIONER 10/17/20
[2024-08-03 02:22] LABS: Influenza A QL RT-PCR Negative (Negative); Influenza B QL RT-PCR Negative (Negative); RSV RNA, RT-PCR Negative (Negative); SARS-CoV-2 RNA PCR Negative (Negative)
[2024-08-03 02:37] LABS: Troponin I < 4.0 ng/L (0.00-60.4)
--- NOTE | 2024-08-03 03:14 | PC.NURSE ---
Pt resting, continuing to monitor, VSS, pt accepted by Dr Vasquez Mcnally at [facility] cardiology for transfer. Pt updated on POC.
--- NOTE | 2024-08-03 03:39 | PC.NURSE ---
Call back from Anabel at [facility], pt will go to [phone]
== END 2024-08-03 04:19 | disposition short-term general hospital (02) ==
PROVIDERS: Emergency Provider Emergency Medicine
DX: N17.9 Acute kidney failure, unspecified (principal); R06.00 Dyspnea, unspecified; Z20.822 Contact with and (suspected) exposure to COVID-19; I10 Essential (primary) hypertension; E78.5 Hyperlipidemia, unspecified; G47.33 Obstructive sleep apnea (adult) (pediatric); Z79.82 Long term (current) use of aspirin; R73.03 Prediabetes; I25.10 Atherosclerotic heart disease of native coronary artery without angina pectoris; Z99.89 Dependence on other enabling machines and devices; Z72.0 Tobacco use
CPT/HCPCS: 36415; 36600; 71045; 80053; 82805; 83735; 83880; 84484; 85025; 85610; 85730; 87637; 93005; 96374; 99285; A9270; J2060